=== PATIENT | male | born 1960 | race Caucasian/White ===

== ENCOUNTER 2020-12-09 11:05 | Emergency (ER) | payer MEDICARE, SELFPAY ==
--- NOTE | ~2020-12-09 | XR_ITS ---
EXAMINATION: LEFT HAND AND WRIST CLINICAL INFORMATION: Snuffbox tenderness COMPARISON: None TECHNIQUE: 4 views of the left hand and wrist FINDINGS: There is no evidence of acute fracture or dislocation of the left hand or wrist. There is some limited evaluation of the fingers due to them being held in flexion. There is mild degenerative spurring seen about the first metacarpal phalangeal joint. XR/XR hand wrist LT IMPRESSION: No significant bony abnormality of the left hand and wrist.
[2020-12-09 11:40] VITALS: BP 123/48; PULSE 88; RESP 14; TEMP 36.6; O2SAT 95; BMI 42.0
--- NOTE | 2020-12-09 12:21 | ECG_ITS ---
Test Reason : ARM TINGLING Blood Pressure : / mmHG Vent. Rate : 081 BPM Atrial Rate : 081 BPM P-R Int : 182 ms QRS Dur : 098 ms QT Int : 372 ms P-R-T Axes : 064 016 033 degrees QTc Int : 432 ms Normal sinus rhythm Low voltage QRS Inferior infarct (cited on or before 19-JAN-2009) Abnormal ECG When compared with ECG of 24-FEB-2017 04:55, Premature atrial complexes are no longer Present Referred By: Lyssa Benavidez Electronically Signed By:GAUTAM BERGER MD
[2020-12-09 12:22] VITALS: BP 120/54; PULSE 82; RESP 18; O2SAT 99
--- NOTE | 2020-12-09 12:45 | ED.EXTPRO ---
HPI - Extremity Problem General Chief complaint: Extremity Problem Stated complaint: lt hand numbness Time Seen by Provider: 12/09/20 12:06 Source: patient Mode of arrival: ambulatory History of Present Illness HPI Narrative: 60-year-old male with a past medical history of HTN, CKD, COPD on O2, CAD, HTN, HLD, MARLA, P 80, hyperlipidemia, sleep apnea, vitamin-D deficiency, c/o left wrist/hand pain since yesterday, worse with movement/palpation. Denies known injury/trauma or falls, pain described as tingling/pressure w/ radiating up arm. Denies associated CP/SOB, weakness, numbness, fever, chills, nausea/vomiting Complaint: extremity pain and joint swelling Related Data Home Medications Medication Instructions Recorded Confirmed aspirin [Aspir-81] 81 mg PO DAILY 07/01/20 11/11/20 furosemide 1 tab PO DAILY 07/01/20 11/11/20 ipratropium-albuterol 1 vial INHALATION Q6H PRN 07/01/20 11/11/20 lisinopril 1 tab PO DAILY 07/01/20 11/11/20 metoprolol succinate 1 tab PO DAILY 07/01/20 11/11/20 Previous Rx's Medication Instructions Recorded cholecalciferol (vitamin D3) 50 50 mcg PO DAILY #90 cap 07/09/20 mcg (2,000 unit) capsule atorvastatin 40 mg tablet 40 mg PO DAILY #90 tab 12/02/20 gabapentin 300 mg capsule 300 mg PO BID #60 cap 12/02/20 Allergies Allergy/AdvReac Type Severity Reaction Status Date / Time No Known Allergies Allergy Verified 11/15/20 23:29 Review of Systems Review of Systems: Constitutional: No Fever, No Chills Cardiovascular: No Chest Pain, No SOB Respiratory: No Cough, No Dyspnea Gastrointestinal: No Nausea, No Vomiting, No Abdominal pain Musculoskeletal: + joint pain, No Myalgias, No Joint Swelling Skin: No Skin Lesions, No rash Neuro: No Weakness, No Numbness, + Paresthesias Yes all other systems are reviewed and are negative [facility] Past Medical History Attestation statement: The following information was validated with the patient. Medical History Benign essential hypertension Chronic kidney disease (CKD), stage III (moderate) COPD (chronic obstructive pulmonary disease) Coronary artery disease History of back problems HTN (hypertension) Hypercholesterolemia Impaired fasting glucose Obesity (BMI 30-39.9) Obstructive sleep apnea Peripheral arterial disease Post herpetic neuralgia Pure hypercholesterolemia Secondary polycythemia Severe chronic obstructive pulmonary disease Sleep apnea Smoker Vitamin D deficiency Surgical History History of prostate surgery Recent surgical procedure on lower extremity Family History Family History Father CVD (cardiovascular disease) Diabetes Hypertension Mother Diabetes Hypertension CVD (cardiovascular disease) Brother Obese Pneumonia Heart attack Sister Seizures Son Bipolar disorder Social History Social History Alcohol intake: former Smoking Status: Current every day smoker Use of substances other than those prescribed or required for medical reasons: No Advance Directives: No Advance Directives Information Provided: No Physical Exam Vital Signs: Vital Signs: Last Vital Signs Temp 97.9 F 12/09/20 11:40 Pulse 82 12/09/20 12:22 Resp 18 12/09/20 12:22 BP 120/54 L 12/09/20 12:22 Pulse Ox 99 12/09/20 12:22 Body Mass Index 42.0 Const: General: cooperative, healthy appearing and comfortable Orientation/consciousness: patient oriented x3 Limitations: no limitations HENMT: Head: Yes normal to inspection Ears: hearing grossly normal bilaterally General nose exam: Normal external nose present Face and sinus: Yes normal facial exam Eyes: General: appearance normal, both eyes and all related structures EOM: EOMs intact bilaterally Neck: Neck: Yes normal visual inspection Resp: Effort & Inspection: normal respiratory effort Cardio: Rate: regular rate Peripheral pulses: radial pulses present GI: Inspection: Yes normal to inspection Skin: Rashes: no rashes Wounds: no wounds Neuro: General: patient oriented x3 and tone normal Extrem: Other: Left wrist without notable deformity or swelling. +ttp to radial aspect w/+ snuffbox tenderness, + decreased ROM to wrist secondary to pain. Neurovascularly intact. Thumb to 4th & 5th digit opposition limited bilaterally (chronically). No erythema/crepitus or warmth General: Yes normal to inspection Course Course Course Narrative: XR hand wrist LT IMPRESSION: No significant bony abnormality of the left hand and wrist >> will place patient in thumb spica splint to follow-up with orthopedics EKG is unchanged from priors -results discussed with patient and family at bedside MDM - Extremity (Nontraumatic) MDM Narrative Medical decision making narrative: 60-year-old male with a past medical history of HTN, CKD, COPD on O2, CAD, HTN, HLD, MARLA, P 80, hyperlipidemia, sleep apnea, vitamin-D deficiency, c/o left wrist/hand pain since yesterday, worse with movement/palpation. On exam VSS, NAD, well appearing, physical exam as above. Concern for fracture/stress fracture vs sprain/strain. Unlikely septic joint/arthritis. Lower concern for ACS Plan: EKG, x-rays ECG Data Attestation EKG: I personally reviewed and interpreted this ECG as follows: ECG interpretation date: 12/09/20 ECG interpretation time: 12:45 Prior ECG tracings: available for review Interpretation: EKG normal sinus rhythm. Rate of 81. Q-waves in leads III and aVF. Unchanged from priors. QTC 432. No STEMI Discharge Plan Discharge Clinical Impression: Acute wrist pain Patient Disposition: Home, Self-Care Instructions: Arthralgia (ED), Arthritis (ED) Additional Instructions: Your x-ray showed degenerative joint changes, but no fracture or dislocation your EKG is unchanged from priors You need to wear wrist splint at home at all times until you see the account services specialist, only take off to shower Take Tylenol /Motrin at home for pain Ice and elevate your wrist Prescriptions: No Action cholecalciferol (vitamin D3) [Vitamin D3] 50 mcg (2,000 unit) capsule 50 mcg PO DAILY Qty: 90 RF: 1 atorvastatin 40 mg tablet 40 mg PO DAILY Qty: 90 RF: 3 gabapentin 300 mg capsule 300 mg PO BID Qty: 60 RF: 5 furosemide 40 mg tablet 1 tab PO DAILY RF: 0 ipratropium-albuterol 0.5 mg-3 mg(2.5 mg base)/3 mL solution for nebulization 1 vial inhalation Q6H PRN (Reason: Shortness Of Breath Or Wheezing) RF: 0 metoprolol succinate 50 mg tablet extended release 24 hr 1 tab PO DAILY RF: 0 lisinopril 20 mg tablet 1 tab PO DAILY RF: 0 aspirin [Aspir-81] 81 mg Tablet,Delayed Release (Dr/Ec) 81 mg PO DAILY RF: 0 Referrals: Vivian Marrufo PA-C [Physician [facility]] - 1 week
[2020-12-09] MEDS: oxyCODONE HCl Immed Release 5 MG TABLET PO (14:07)
== END 2020-12-09 14:10 | disposition home or self-care (01) ==
PROVIDERS: Emergency Provider Emergency Medicine Emergency Medical Services; PCP Internal Medicine
DX: M25.532 Pain in left wrist (principal); I12.9 Hypertensive chronic kidney disease with stage 1 through stage 4 chronic kidney disease, or unspecified chronic kidney disease; N18.30 Chronic kidney disease, stage 3 unspecified; E78.00 Pure hypercholesterolemia, unspecified; E66.9 Obesity, unspecified; F17.200 Nicotine dependence, unspecified, uncomplicated; J44.9 Chronic obstructive pulmonary disease, unspecified; Z99.81 Dependence on supplemental oxygen; Z79.82 Long term (current) use of aspirin; Z79.899 Other long term (current) drug therapy
CPT/HCPCS: 29125; 73110; 73130; 93005; 99283; 99284

== ENCOUNTER → 2020-12-14 13:30 | Outpatient (BNVA) | payer MEDICARE, SELFPAY | PROVIDERS: PCP Internal Medicine; Visit Provider Orthopaedic Surgery | DX: M79.642 Pain in left hand (principal); M72.0 Palmar fascial fibromatosis [Dupuytren] | CPT/HCPCS: 99202 ==

== ENCOUNTER → 2021-01-26 14:54 | Outpatient (BNVA) | payer MEDICARE, SELFPAY | PROVIDERS: PCP Internal Medicine; Visit Provider Orthopaedic Surgery ==

== ENCOUNTER 2021-05-17 10:12 | Outpatient (REF) | payer MEDICARE, SELFPAY ==
[2021-05-17 10:53] LABS: MANUAL DIFF FLAG NO
[2021-05-17 11:01] LABS: Basophils Absolute Auto 0.1 X10*3/uL (0.0-0.2); Basophils Percent Auto 0.8 % (0-2); Eosinophils Absolute Auto 0.5 X10*3/uL (0.0-0.4); Eosinophils Percent Auto 3.8 % (0-4); Hematocrit 50.6 % (42-52); Hemoglobin 16.3 g/dl (14.0-18.0); Imm Gran Abs Auto 0.05 X10*3/uL (0.00-0.03); Imm Gran Pct Auto 0.4 % (0.0-0.4); Lymphocytes Absolute Auto 3.4 X10*3/uL (1.2-4.9); Lymphocytes Percent Auto 26.5 % (20-40); Mean Corpuscular HGB Conc 32.2 g/dl (31.0-36.0); Mean Corpuscular Volume 105.4 fL (80-98); Mean Platelet Volume 10.4 fL (9.4-12.4); Monocytes Absolute Auto 0.8 X10*3/uL (0.1-1.2); Monocytes Percent Auto 6.4 % (2-11); Neutrophils Absolute Auto 7.9 X10*3/uL (2.0-8.3); Neutrophils Percent Auto 62.1 % (45-73); Platelet Count 184 X10*3/uL (160-400); Red Cell Distribution Width 15.7 % (11.0-16.0); White Blood Count 12.8 X10*3/uL (4.8-10.8)
[2021-05-17 11:26] LABS: Alanine Aminotransferase 9 U/L (0-40); Alkaline Phosphatase 90 U/L (39-117); Anion Gap 12 (12-20); Aspartate Amino Transferase 14 U/L (5-37); Bilirubin Total 0.8 mg/dL (0.0-1.0); Blood Urea Nitrogen 37 mg/dL (9-16); Calcium 10.4 mg/dL (8.4-10.2); Carbon Dioxide 39 mmol/L (22-29); Chloride 95 mmol/L (96-108); Cholesterol 132 mg/dL; Estimated Glomerular Filt Rate 39; Glucose Fasting 93 mg/dL (60-99); HDL Cholesterol 25 mg/dL; LDL Cholesterol Calculated 73 mg/dl; Potassium 4.8 mmol/L (3.3-5.1); Sodium 141 mmol/L (135-145); Triglycerides 172 mg/dL
[2021-05-17 11:48] LABS: TSH reflex Free T4 1.49 uIU/mL (0.32-4.0); Vitamin D 25-OH Total 23.3 ng/mL (>30)
[2021-05-17 12:20] LABS: Appearance Urine CLEAR; Color Urine YELLOW; Glucose Urine UA NEG (NEG); Leukocyte Esterase Urine NEG (NEG); Nitrite Urine NEG (NEG); Urine Blood NEG (NEG); Urine Ketones NEG (NEG); Urine Protein NEG (NEG-TRACE)
== END 2021-05-17 10:13 | disposition home or self-care (01) ==
LOC: HO.LAB 10:12
PROVIDERS: PCP Internal Medicine; Visit Provider Internal Medicine
DX: D75.1 Secondary polycythemia (principal); I25.10 Atherosclerotic heart disease of native coronary artery without angina pectoris; E78.00 Pure hypercholesterolemia, unspecified; I73.9 Peripheral vascular disease, unspecified; I12.9 Hypertensive chronic kidney disease with stage 1 through stage 4 chronic kidney disease, or unspecified chronic kidney disease; N18.31 Chronic kidney disease, stage 3a; R73.01 Impaired fasting glucose; E55.9 Vitamin D deficiency, unspecified; E66.9 Obesity, unspecified
CPT/HCPCS: 36415; 80053; 80061; 81003; 82306; 84443; 85025

== ENCOUNTER 2021-10-11 15:59 | Outpatient (REF) | payer MEDICARE, SELFPAY ==
--- NOTE | ~2021-10-11 | XR_ITS ---
EXAMINATION: XR HIP, RIGHT CLINICAL INFORMATION: Pain in the right hip. COMPARISON: None. TECHNIQUE: AP and frog-leg lateral views of the right hip. FINDINGS: There is relative sclerosis of the femoral head superiorly with subtle cortical irregularity, possibly due to avascular necrosis. Small marginal osteophytes are present in the right hip. Mild axial joint space narrowing at the right hip. No fractures. Pubic symphysis and SI joints are unremarkable. Calcific atherosclerosis is present in the iliac and femoral arteries. XR/XR hip RT min 2V IMPRESSION: Chronic findings concerning for avascular necrosis of the femoral head. Consider correlation with MRI of the hip for further assessment. Mild osteochondritis in the right hip.
== END 2021-10-11 16:00 | disposition home or self-care (01) ==
LOC: HO.XRAY 15:59
PROVIDERS: PCP Internal Medicine; Visit Provider Nurse Practitioner Family
DX: M25.551 Pain in right hip (principal)
CPT/HCPCS: 73502

== ENCOUNTER 2021-10-14 19:35 | Outpatient (REF) | payer MEDICARE, SELFPAY ==
--- NOTE | ~2021-10-14 | MR_ITS ---
EXAMINATION: MR HIP WITHOUT CONTRAST, RIGHT CLINICAL INFORMATION: Osteochondritis dissecans right hip COMPARISON: X-ray the right hip October 2021 TECHNIQUE: MRI of the right hip was obtained using routine sequences on a high-field strength magnet. FINDINGS: Subcutaneous soft tissues: Normal. Muscles and tendons: Mild heterogeneous increased T2 signal within the proximal vastus intermedialis muscle compatible with muscle strain or contusion. Bone and articular cartilage: There is a circumscribed focus of heterogeneous abnormal signal within the superior lateral apex of the femoral head. This corresponds to the area of sclerosis on radiographs. This area is well defined by focal serpentine-shaped area of low T1 signal becoming heterogeneously bright on T2 with central area of heterogeneous signal with areas of fat signal and edema. This parallels the subchondral bone. The appearance is characteristic for avascular necrosis. This area measures 4.2 cm AP and 2.6 cm transverse and extends up to 7 mm deep to the articular surface. There is a surrounding bone marrow edema pattern raising the question of subtle articular collapse which is not definitely confirmed on this exam. This could reflect a surrounding inconspicuous fracture without collapse. There is also bone marrow edema extending along the junction of the basicervical portion of the femoral neck greater trochanteric junction. I do not see a clearly defined fracture line associated with this marrow edema. There is some minimal edema in the subchondral region of the acetabulum. Minimal heterogeneity of the articular cartilage indicative of minimal osteoarthritis of the hip joint. On the single large [id number] of the pelvis no additional bone or joint abnormalities. Intrapelvic soft tissues are unremarkable. Neurovascular structures: Normal. Lymph nodes: Normal. MR/MR hip RT wo con IMPRESSION: Avascular necrosis of the femoral head. The surrounding edema suggests a complicating fracture perhaps surrounding or involving the area of avascular necrosis; no clear articular collapse identified. The bone marrow edema extending more distally and laterally at the junction of the basicervical portion of the neck in the greater trochanter of uncertain etiology. However, this most likely reflects extension of edema related to the aforementioned avascular necrosis. Cannot exclude subtle concomitant basicervical neck fracture. Consider follow-up CT examination to confirm the lack of a concomitant fracture as felt clinically necessary. Mild abnormality of the proximal vastus intermedius muscle compatible with muscle contusion or strain. Mild arthrosis of the right hip joint.
== END 2021-10-14 19:36 | disposition home or self-care (01) ==
LOC: HO.MRI 19:35
PROVIDERS: Visit Provider Nurse Practitioner Family
DX: M93.25 Osteochondritis dissecans of hip (principal); M25.551 Pain in right hip
CPT/HCPCS: 73721

== ENCOUNTER → 2021-12-09 11:50 | Outpatient (BNVA) | payer MEDICARE, SELFPAY | PROVIDERS: PCP Internal Medicine; Visit Provider Orthopaedic Surgery | DX: M87.051 Idiopathic aseptic necrosis of right femur (principal); M25.551 Pain in right hip; I12.9 Hypertensive chronic kidney disease with stage 1 through stage 4 chronic kidney disease, or unspecified chronic kidney disease; I25.10 Atherosclerotic heart disease of native coronary artery without angina pectoris; N18.32 Chronic kidney disease, stage 3b; E78.00 Pure hypercholesterolemia, unspecified; E55.9 Vitamin D deficiency, unspecified; F17.210 Nicotine dependence, cigarettes, uncomplicated | CPT/HCPCS: 99202 ==

== ENCOUNTER 2022-05-03 09:42 | Outpatient (REF) | payer MEDICARE, SELFPAY ==
[2022-05-03 11:20] LABS: Appearance Urine Turbid; Color Urine Yellow; Glucose Urine UA Negative (Negative); Leukocyte Esterase Urine Negative (Negative); Nitrite Urine Negative (Negative); PH 6.5 (5.0-8.0); Urine Blood Negative (Negative); Urine Ketones Negative (Negative); Urine Protein Negative (Neg-Trace)
[2022-05-03 11:24] LABS: MANUAL DIFF FLAG NO
[2022-05-03 11:42] LABS: Basophils Absolute Auto 0.1 X10*3/uL (0.0-0.2); Basophils Percent Auto 0.8 % (0-2); Eosinophils Absolute Auto 0.5 X10*3/uL (0.0-0.4); Eosinophils Percent Auto 3.5 % (0-4); Hematocrit 48.2 % (42.0-52.0); Hemoglobin 15.7 g/dl (14.0-18.0); Imm Gran Abs Auto 0.07 X10*3/uL (0.00-0.03); Imm Gran Pct Auto 0.5 % (0.0-0.4); Lymphocytes Absolute Auto 2.8 X10*3/uL (1.2-4.9); Lymphocytes Percent Auto 19.6 % (20-40); Mean Corpuscular HGB Conc 32.6 g/dl (31.0-36.0); Mean Corpuscular Hemoglobin 34.4 pg (27.0-33.0); Mean Corpuscular Volume 105.5 fL (80.0-98.0); Mean Platelet Volume 10.8 fL (9.4-12.4); Monocytes Absolute Auto 0.9 X10*3/uL (0.1-1.2); Monocytes Percent Auto 6.3 % (2-11); Neutrophils Absolute Auto 9.8 x10*3/uL (2.0-8.3); Neutrophils Percent Auto 69.3 % (45-73); Platelet Count 172 X10*3/uL (160-400); Red Blood Count 4.57 X10*6/uL (4.60-5.80); White Blood Count 14.2 X10*3/uL (4.8-10.8)
[2022-05-03 12:12] LABS: Estimated Average Glucose 103 mg/dL; Hemoglobin A1c % 5.2 %
[2022-05-03 12:21] LABS: Alanine Aminotransferase 8 U/L (0-40); Alkaline Phosphatase 92 U/L (39-117); Anion Gap 14 (12-20); Aspartate Amino Transferase 13 U/L (5-37); Bilirubin Total 0.6 mg/dL (0.0-1.0); Blood Urea Nitrogen 22 mg/dL (9-16); Calcium 9.7 mg/dL (8.4-10.2); Carbon Dioxide 35 mmol/L (22-29); Chloride 97 mmol/L (96-108); Cholesterol 109 mg/dL; Estimated Glomerular Filt Rate 50; Glucose Fasting 87 mg/dL (60-99); HDL Cholesterol 29 mg/dL; LDL Cholesterol Calculated 61 mg/dl; Potassium 4.4 mmol/L (3.3-5.1); Sodium 142 mmol/L (135-145); Total Protein 7.2 g/dL (6.5-8.0); Triglycerides 97 mg/dL
[2022-05-03 12:36] LABS: TSH reflex Free T4 1.44 uIU/mL (0.32-4.0); Vitamin D 25-OH Total 33.3 ng/mL (>30)
== END 2022-05-03 09:43 | disposition home or self-care (01) ==
LOC: HO.HMGCLDS 09:42
PROVIDERS: PCP Internal Medicine; Visit Provider Internal Medicine
DX: I10 Essential (primary) hypertension (principal); E55.9 Vitamin D deficiency, unspecified; E78.00 Pure hypercholesterolemia, unspecified; R73.01 Impaired fasting glucose
CPT/HCPCS: 36415; 80053; 80061; 81003; 82306; 83036; 84443; 85025

== ENCOUNTER 2022-08-07 16:32 | Inpatient (IN) | payer MEDICARE, SELFPAY ==
--- NOTE | ~2022-08-07 | CT_ITS ---
EXAMINATION: CT FACIAL BONES WITH CONTRAST CT TISSUE NECK WITH CONTRAST CLINICAL INFORMATION: Nonresolving cellulitis. Rule out abscess. COMPARISON: Neck CT dated 08/07/2022. TECHNIQUE: Following intravenous administration of 85 mL of Omnipaque 350, helical imaging was acquired with generation of reformatted acquisitions. This CT examination was performed using dose optimization techniques as appropriate, variously including the following: *Automated exposure control *Adjustment of mA and/or kV according to patient size (this includes techniques or standardized protocols for targeted exams where dose is matched to indication/reason for exam; i.e. extremities or head) *Use of iterative reconstruction technique DLP: 535 mGy-cm FINDINGS: Mild stranding in the subcutaneous fat of the left facial soft tissues is fairly similar to prior imaging. No organized fluid collection is identified. Additional anterior frontal scalp soft tissue thickening also evident. A 1.8 x 1.7 cm subdermal cyst is unchanged in appearance. No contour abnormality or pathologic enhancement is seen within the oral cavity, pharyngeal mucosal space, or larynx with some limitations in evaluation due to motion artifacts. The thyroid gland is homogeneous. The airway is preserved, though narrowed at the thoracic inlet due to COPD. No new cervical adenopathy is seen. The carotid sheath vasculature opacifies normally with stable moderate atherosclerotic wall calcifications at the bifurcations and origins of the internal carotid arteries. The parotid and submandibular glands are normal. Left periorbital soft tissue inflammatory change is stable. The patient has had prior lens extractions. The extraocular muscles and optic nerve sheath complexes appear normal. No retrobulbar soft tissue mass is seen. The orbital apices are normal. There is what may represent a chronic radicular cyst in the alveolar process of the anterior maxilla. The patient is otherwise edentulous. Multilevel cervical spondylosis noted with bulky endplate spurring anterolaterally. No suspicious osseous lesion is seen. A right paracentral disc protrusion impresses upon the ventral thecal sac at the C5-C6 level. The imaged paranasal sinuses and mastoid air cells are well aerated. The TMJs are normal. The imaged portions of the brain demonstrate no acute abnormality. There are patchy areas of subsegmental atelectasis in the lungs with interlobular septal thickening which may be due to mild vascular congestion, also evident on prior imaging. Emphysematous changes again visible as well. Aside from atherosclerotic wall calcifications in the abdominal aorta and dilatation of the main pulmonary artery, the imaged mediastinum is unremarkable. CT/CT soft tissue neck w IV con IMPRESSION: No new soft tissue fluid collection. Stable periorbital soft tissue swelling and anterior frontal scalp soft tissue thickening. Additional stable mild left facial cellulitic changes of indeterminate etiology. Presumed reactive thickening of the platysma muscle, as on prior imaging. No new cervical adenopathy. Interlobular septal thickening in the lungs with scattered subsegmental atelectatic changes superimposed upon emphysema. Pulmonary arterial dilatation can be seen in the setting of chronic pulmonary artery hypertension; clinically correlate.
--- NOTE | ~2022-08-07 | CT_ITS ---
EXAMINATION: CT SOFT TISSUE NECK WITHOUT CONTRAST CLINICAL INFORMATION: Left-sided facial swelling and pain COMPARISON: None TECHNIQUE: Helical imaging was performed in the axial plane with generation of coronal and sagittal reformatted images. This CT examination was performed using dose optimization techniques as appropriate, variously including the following: *Automated exposure control *Adjustment of mA and/or kV according to patient size (this includes techniques or standardized protocols for targeted exams where dose is matched to indication/reason for exam; i.e. extremities or head) *Use of iterative reconstruction technique DLP: 844 mGy-cm FINDINGS: Visualized intracranial contents grossly unremarkable-limited assessment. Globes are slightly proptotic. Globes and retro-orbital structures otherwise intact. Normal appearance of the director process space and parapharyngeal fat. No thickening of the posterior nasopharyngeal soft tissues. Major salivary glands and thyroid gland are unremarkable. Laryngeal structures are within normal limits. No mucosal space mass identified. No retropharyngeal fluid collection. Bilateral carotid vascular calcifications. Atherosclerotic vascular calcifications aortic arch, great vessels, and vertebral arteries. Dense calcification the proximal right subclavian artery. No cervical lymphadenopathy. 1.8 cm low-density subdermal lesion in the left lower face overlying the mandible, likely sebaceous or epidermal inclusion cyst on series 14 image 73. Mild subcutaneous edema/stranding in the lower left face and left neck with slight asymmetric thickening of the left platysma muscle relative to the right side. Correlate with evidence of cellulitis on exam. No fluid collection suspicious for abscess. Visualized upper lungs demonstrate mild to moderate centrilobular emphysema. No acute fracture or suspicious osseous lesion. Mild multilevel cervical spondylosis. Paranasal sinuses and mastoid air cells are normally aerated. The patient is edentulous. No fracture or suspicious osseous lesion. CT/CT soft tissue neck wo IV con IMPRESSION: 1. Mild subcutaneous edema/stranding in the lower left face and left neck with slight asymmetric thickening of the left platysma muscle. Correlate with evidence of cellulitis on exam. No fluid collection suspicious for abscess. 2. No cervical lymphadenopathy. 3. 1.8 cm low-density subdermal lesion in the left lower face overlying the mandible, likely sebaceous or epidermal inclusion cyst.
--- NOTE | ~2022-08-07 | CT_ITS ---
EXAMINATION: CT head/brain wo IV con CLINICAL INFORMATION: Reason for Exam headache, COMPARISON: None. TECHNIQUE: Contiguous axial imaging was performed from the skull base to vertex without intravenous contrast. Sagittal and coronal reformatted images were obtained. This CT examination was performed using dose optimization techniques as appropriate, variously including the following: * Automated exposure control * Adjustment of mA and/or kV according to patient size (this includes techniques or standardized protocols for targeted exams where dose is matched to indication/reason for exam; i.e. extremities or head) Use of iterative reconstruction technique DLP: 2470 mGy-cm for the head, neck, and chest CTs dictated separately FINDINGS: Right posterior parietal soft tissue scalp swelling. Left premalar soft tissue swelling. Bilateral lens placements. No acute fracture. The mastoid air cells and visualized portions of the paranasal sinuses are well aerated. There is no evidence of acute intracranial hemorrhage or territorial infarction. No abnormal mass effect or midline shift is seen. Mar to white matter differentiation is well preserved. No extra-axial fluid collections are identified. No hydrocephalus. Patchy periventricular and deep white matter hypoattenuation is consistent with mild small vessel ischemic changes. CT/CT head/brain wo IV con IMPRESSION: 1. No acute intracranial abnormality. Right posterior parietal and left premalar soft tissue swelling without underlying acute fracture.
--- NOTE | ~2022-08-07 | CT_ITS ---
EXAMINATION: CT CHEST WITHOUT CONTRAST CLINICAL INFORMATION: Hypoxia COMPARISON: CT 04/14/2020 TECHNIQUE: Multidetector volumetric CT imaging of the chest was done. Axial MIP volume rendering provided. Sagittal and coronal reformatted images were obtained. This CT examination was performed using dose optimization techniques as appropriate, variously including the following: *Automated exposure control *Adjustment of mA and/or kV according to patient size (this includes techniques or standardized protocols for targeted exams where dose is matched to indication/reason for exam; i.e. extremities or head) *Use of iterative reconstruction technique DLP: 672.15 mGy-cm FINDINGS: LUNGS: Subpleural consolidation or rounded atelectasis in the right lower lobe with overall volume loss and basilar crowding. This is similar to the previous study although there are increased interstitial markings suggesting superimposed edema or airways inflammation. Moderate upper lobe predominant centrilobular emphysema. MEDIASTINUM: No pericardial effusion. No mediastinal or hilar lymphadenopathy. Prominent mediastinal fat. CORONARY ARTERY CALCIFICATION: Prominent coronary artery calcifications are noted. PLEURA: Chronic right pleural effusion with mild pleural thickening which does not appear significantly changed since 04/14/2020. AXILLA: No lymphadenopathy. UPPER ABDOMEN: Unremarkable. OSSEOUS STRUCTURES: Unremarkable. CT/CT chest wo IV con IMPRESSION: Chronic right pleural effusion with pleural thickening and rounded atelectasis in the right lower lobe, similar to the previous study. Increased interstitial markings suggesting superimposed interstitial edema or airways inflammation. Moderate upper lobe predominant centrilobular emphysema. Fleischner guidelines were followed.
--- NOTE | ~2022-08-07 | US_ITS ---
EXAMINATION: US VENOUS WITH DOPPLER UPPER EXTREMITY, LEFT CLINICAL INFORMATION: Left upper extremity swelling and pain COMPARISON: None TECHNIQUE: Ultrasound of the upper extremity is performed using compression sonography and color and pulse Doppler flow with assessment of augmentation of flow. There is also imaging and Doppler assessment of the jugular and subclavian veins. Spectral analysis with color-flow imaging is performed. FINDINGS: Respiratory variation, normal compression, and augmented flow are noted throughout the upper extremity including the axillary, brachial, basilic, and radial and ulnar veins. There is normal flow in the internal jugular and subclavian veins. There is no visible deep or superficial thrombophlebitis. If the patient's symptoms progress, a followup ultrasound in 5 -7 days might be of value to exclude proximal propagation from a nonvisualized distal arm vein. US/US venous duplex UE LT IMPRESSION: No DVT demonstrated in the left upper extremity.
--- NOTE | ~2022-08-07 | XR_ITS ---
EXAMINATION: XR SHOULDER, LEFT CLINICAL INFORMATION: Pain and decreased range of motion COMPARISON: None TECHNIQUE: AP external rotation, Grashey, scapular Y, and axillary views of the left shoulder. FINDINGS: Bone alignment is normal. No fracture or dislocation. Normal glenohumeral joint. Arthritis at the acromioclavicular joint. There is soft tissue arterial calcification. Soft tissues are otherwise normal XR/XR shoulder LT min 2V IMPRESSION: Arthritis at the acromioclavicular joint.
--- NOTE | 2022-08-07 16:35 | ED_ITS ---
HPI - Skin/Abscess/Foreign Bdy General Chief complaint: General Medical <Candy Dooley NP - Last Filed: 08/07/22 16:39> Stated complaint: facial swelling, shoulder pain <Candy Dooley NP - Last Filed: 08/07/22 16:39> Time Seen by Provider: 08/07/22 17:38 <Candy Dooley NP - Last Filed: 08/07/22 16:39> Source: patient <HADLEY Akbar - Last Filed: 08/07/22 20:54> Mode of arrival: ambulatory <HADLEY Akbar - Last Filed: 08/07/22 20:54> Limitations: no limitations <HADLEY Akbar - Last Filed: 08/07/22 20:54> History of Present Illness HPI narrative: This is a 62 year old male hisory of COPD on 2L NC, HLD, CAD, PAD, CKD here with left sided facial swelling, pain x 3 days. Patient tells me that this has been progressively worsening over the past few days. Tells me now it is much more red, tender. Also reporting generalized pain throughout his body and left-sided headache, denies any trauma to the area tells me it does not feel like his normal headache. Reports subjective fevers and chills home. When patient arrived here into the emergency department he was noted to be 73% on RA usually on 2L, he was placed on 3 L and oxygen saturation improved to 97%. Patient denies any trauma to the area. Patient denies chest pain, shortness of breath, nausea, vomiting, vision changes, dizziness, weakness, headache, earach e, difficulty swallowing. NIH stroke scale 0. <HADLEY Akbar Last Filed: 08/07/22 20:54> Related Data Home medications: Home Medications Medication Instructions Recorded Confirmed aspirin 81 mg tablet,delayed 81 mg PO DAILY 07/01/20 05/18/21 release Previous Rx's Medication Instructions Recorded cholecalciferol (vitamin D3) 50 50 mcg PO DAILY #90 caps 10/04/21 mcg (2,000 unit) capsule atorvastatin 40 mg tablet 40 mg PO DAILY #90 tabs 12/10/21 furosemide 40 mg tablet 40 mg PO DAILY #90 tabs 12/10/21 lisinopril 20 mg tablet 20 mg PO DAILY #90 tabs 12/17/21 metoprolol succinate 50 mg 50 mg PO DAILY #90 tabs 04/14/22 tablet,extended release 24 hr gabapentin 300 mg capsule 300 mg PO TID 2 weeks #90 caps 05/11/22 NEBULIZER #1 ea 06/24/22 ipratropium 0.5 mg-albuterol 3 mg 3 ml inhalation Q6H Shortness Of 06/24/22 (2.5 mg base)/3 mL nebulization Breath Or Wheezing 30 days #360 mL soln <Candy Dooley NP - Last Filed: 08/07/22 16:39> Allergies/Adverse reactions: Allergies Allergy/AdvReac Type Severity Reaction Status Date / Time No Known Allergies Allergy Verified 12/09/21 12:22 <Candy Dooley NP - Last Filed: 08/07/22 16:39> Review of Systems Review of Systems: Constitutional : No Weight loss, + Fever, + Chills, No Fatigue, No Malaise ENT/Mouth : No sore throat, No Rhinorrhea Eyes: No Eye Pain, No Swelling, No Redness Cardiovascular : No Chest Pain, No SOB, No Dyspnea on Exertion, No Orthopnea, No Edema, No Palpitations Respiratory : No Cough, No Sputum, No Wheezing Gastrointestinal : No Nausea, No Vomiting, No Diarrhea, No Constipation, No abdominal Pain, No Hematochezia, No Melena Genitourinary : No Dysuria, No Urinary Frequency, No Hematuria, Musculoskeletal : No joint pain, No Myalgias, No Joint Swelling Skin : No Skin Lesions, No rash, + facial swelling Neuro : No Weakness, No Numbness, No Dizziness, No Headache Psych : No Anxiety/Panic, No Depression All other systems reviewed and are negative <HADLEY Akbar - Last Filed: 08/07/22 20:54> Yes all other systems are reviewed and are negative <HADLEY Akbar - Last Filed: 08/07/22 20:54> [facility] Past Medical History Attestation statement: The following information was validated with the patient. <HADLEY Akbar Last Filed: 08/07/22 20:54> Source: old records reviewed and nursing notes reviewed <HADLEY Akbar - Last Filed: 08/07/22 20:54> Medical History: Medical History Benign essential hypertension Chronic kidney disease (CKD), stage III (moderate) COPD (chronic obstructive pulmonary disease) Coronary artery disease History of back problems HTN (hypertension) Hypercholesterolemia Impaired fasting glucose Left hand pain Obesity (BMI 30-39.9) Obstructive sleep apnea Peripheral arterial disease Post herpetic neuralgia Pure hypercholesterolemia Secondary polycythemia Severe chronic obstructive pulmonary disease Sleep apnea Smoker Vitamin D deficiency <Candy Dooley NP - Last Filed: 08/07/22 16:39> Surgical History: Surgical History History of prostate surgery Recent surgical procedure on lower extremity <Candy Dooley NP - Last Filed: 08/07/22 16:39> Family History Family History: Family History Father CVD (cardiovascular disease) Diabetes Hypertension Mother Diabetes Hypertension CVD (cardiovascular disease) Brother Obese Pneumonia Heart attack Sister Seizures Son Bipolar disorder <Candy Dooley NP - Last Filed: 08/07/22 16:39> Social History Social History: Social History Housing: House Alcohol intake: current Alcohol intake frequency: holidays/special occasions only Patient Tobacco Use Status: Current everyday Tobacco user Tobacco use type: Cigarette Cigarette Packs Per Day: 1 Cigarettes Per Day: 20 e-Cigarette/Vaping Use: Never Used Second Hand Smoke Exposure: Yes Advance Directives: No Advance Directives Information Provided: No service: No Current occupational status: disabled Gender identity: Male Cognitive needs: Yes (cane) Hearing needs: No Vision needs: Yes (reading glasses) <Candy Dooley NP - Last Filed: 08/07/22 16:39> Physical Exam Vital Signs: Vital Signs: Last Vital Signs Temp 99.7 F 08/07/22 17:50 Pulse 106 H 08/07/22 17:50 Resp 18 08/07/22 17:50 BP 144/57 H 08/07/22 17:50 Pulse Ox 97 08/07/22 17:50 O2 Del Method 08/07/22 17:50 Oxygen Flow Rate 3 08/07/22 16:36 BMI result Body Mass Index 43.9 <Candy Dooley NP - Last Filed: 08/07/22 16:39> Vital Signs: Last Vital Signs Temp 99.7 F 08/07/22 17:50 Pulse 106 H 08/07/22 17:50 Resp 18 08/07/22 17:50 BP 144/57 H 08/07/22 17:50 Pulse Ox 97 08/07/22 17:50 O2 Del Method 08/07/22 17:50 Oxygen Flow Rate 3 08/07/22 16:36 BMI result Body Mass Index 43.9 Patient noted to have low-grade fever, tachycardia, tachypnea. <HADLEY Akbar - Last Filed: 08/07/22 20:54> Appearance: Alert.? Oriented X3.? No acute distress.? Head: Normocephalic, atraumatic, no step-offs or deformities Eyes: Pupils equal, round and reactive to light.?EOMI pain free ENT: Pharynx normal.?White coat overlying tongue . No trismus. Poor dentition, hallatosis Neck: Normal inspection.? Neck supple.? CVS: Normal heart rate and rhythm.? Pulses normal.? Respiratory: No respiratory distress.? Breath sounds diminished b/l.? Abdomen: Soft and nontender.? Skin: Skin warm and dry.? Normal skin color.? Normal skin turgor.? Extremities: No lower extremity edema.? No calf ttp. 5/5 strength to bilateral upper and lower extremities Back: No midline tenderness, no C-spine tenderness, full range of motion, no CVA tenderness bilaterally Neuro: Oriented X 3.? No motor deficit.? No sensory deficit. CN 2-12 intact . Normal [id number], [id number]. Normal rapid alternating movements. <HADLEY Akbar - Last Filed: 08/07/22 20:54> Course Course Course Narrative: This is a rapid medical exam. Deferred HPI, ROS, PE to primary provider, 62 yo male with history of COPD on 2L NC, HLD, CAD, PAD, CKD here with left sided facial swelling, pain x 3 days. Patient arrives not on his oxygen because his portable oxygen tank ran out. Initial saturation 72%, improved to 97% 2LNC. Tachycardia with low grade fever in triage. Will check labs including blood cultures, lactic, covid screen. <Candy Dooley NP - Last Filed: 08/07/22 16:39> Reevaluation(s) Reevaluation #1: Patient noted to have leukocytosis 18.9, patient's sodium noted to be 125, patient noted to have an acute on chronic kidney injury BUN 40, creatinine 2.14, added a CPK to ensure patient is not in rhabdomyolysis, patient's lactic acid of 2.4, currently receiving IV hydration for HAYLEY and elevated lactic acid. Coags within normal limits. COVID negative. Pending CPK, bnp, imaging <HADLEY Taylor - Last Filed: 08/07/22 20:54> Time: 17:54 <HADLEY Akbar - Last Filed: 08/07/22 20:54> Reevaluation #2: CPK, and BNP within normal limits. CT of soft tissue neck w/ subcutaneous edema/ stranding in left lower face and left neck w/ slight asymmetric thickening of the left platysma muscle. No acute intracranial abnormality. Right posterior parietal and left premalar soft tissue swelling without underlying acute fracture. There is no palpable abscess in that region on exam. At this time patient will be admitted to the hospital for further intervention and treatment. <HADLEY Akbar - Last Filed: 08/07/22 20:54> Time: 20:53 <HADLEY Akbar - Last Filed: 08/07/22 20:54> Medications Administered Discontinued Medications Generic Name Dose Route Start Last Admin Trade Name Freq PRN Reason Stop Dose Admin Acetaminophen 975 mg 08/07/22 16:38 08/07/22 16:41 Acetaminophen 325 Mg Tablet PO 08/07/22 16:39 975 mg ONCE ONE Administration Ceftriaxone Sodium 1 gm/ 50 mls @ 100 mls/hr 08/07/22 17:41 08/07/22 19:33 Sodium Chloride IV 08/07/22 18:10 Infused ONCE ONE Infusion Sodium Chloride 1,000 mls @ 999 mls/hr 08/07/22 17:45 08/07/22 20:32 Ns IV 08/07/22 18:45 Infused .Q1H1M SHERRON Infusion Sodium Chloride 1,000 mls @ 999 mls/hr 08/07/22 18:00 08/07/22 20:32 Ns IV 08/07/22 19:00 999 mls/hr .Q1H1M SHERRON Administration Nystatin 200,000 unit 08/07/22 17:52 08/07/22 18:12 Nystatin Oral Susp 500,000 Unit/5 Ml Oral.Susp BUCCAL 08/07/22 17:53 200,000 unit ONCE ONE Administration Protocol <Candy Dooley NP - Last Filed: 08/07/22 16:39> Medications Administered Discontinued Medications Generic Name Dose Route Start Last Admin Trade Name Freq PRN Reason Stop Dose Admin Acetaminophen 975 mg 08/07/22 16:38 08/07/22 16:41 Acetaminophen 325 Mg Tablet PO 08/07/22 16:39 975 mg ONCE ONE Administration Ceftriaxone Sodium 1 gm/ 50 mls @ 100 mls/hr 08/07/22 17:41 08/07/22 19:33 Sodium Chloride IV 08/07/22 18:10 Infused ONCE ONE Infusion Sodium Chloride 1,000 mls @ 999 mls/hr 08/07/22 17:45 08/07/22 20:32 Ns IV 08/07/22 18:45 Infused .Q1H1M SHERRON Infusion Sodium Chloride 1,000 mls @ 999 mls/hr 08/07/22 18:00 08/07/22 20:32 Ns IV 08/07/22 19:00 999 mls/hr .Q1H1M SHERRON Administration Nystatin 200,000 unit 08/07/22 17:52 08/07/22 18:12 Nystatin Oral Susp 500,000 Unit/5 Ml Oral.Susp BUCCAL 08/07/22 17:53 200,000 unit ONCE ONE Administration Protocol <HADLEY Akbar - Last Filed: 08/07/22 20:54> MDM - Skin/Abscess/Foreign Bdy MDM Narrative Medical decision making narrative: 1740 62-year-old male presents with left-sided facial swelling and pain times 3 days worsening. Upon exam there is erythema, pain and swelling to the left side of face. Diminished breathsounds b /l. Oral candidiasis noted. Patient noted to be tachycardic, tachypneic and was low-grade fever. Initially patient was hypoxic at 73% on RA usually on 2L NC improved to 97% on 3 L via nasal cannula. Concerns for infection will ensure that lactic and blood cultures were ordered in addition to labs that were ordered in triage. Will also order ceftriaxone, fluids. Concerns for abscess versus cellulitis. Since patient was very hypoxic will obtain CTA to rule out PE. Will also rule out CHF. No chest pain therefore low suspicion for ACS. Plan at this time labs, imaging, blood cultures, lactic, antibiotics. Patient was given Tylenol in triage. Will also hydrate patient <HADLEY Akbar - Last Filed: 08/07/22 20:54> Medical Records Attestation: I reviewed the patient's medical records. <HADLEY Akbar - Last F iled: 08/07/22 20:54> Lab Data Attestation: I reviewed the patient's lab results. <HADLEY Akbar - Last Filed: 08/07/22 20:54> Result diagrams: : 08/07/22 16:51 08/07/22 16:51 <Candy Dooley NP - Last Filed: 08/07/22 16:39> Labs: Lab Results 08/07/22 08/07/22 08/07/22 Range/Units 16:51 16:51 16:51 WBC 18.9 H (4.8-10.8) X10*3/uL RBC 4.84 (4.60-5.80) X10*6/uL Hgb 16.3 (14.0-18.0) g/dl Hct 49.9 (42.0-52.0) % MCV 103.1 H (80.0-98.0) fL MCH 33.7 H (27.0-33.0) pg MCHC 32.7 (31.0-36.0) g/dl RDW 15.2 (11.0-16.0) % Plt Count 141 L (160-400) X10*3/uL MPV 10.4 (9.4-12.4) fL Immature Gran % (Auto) 0.5 H (0.0-0.4) % Neut % (Auto) 82.6 H (45-73) % Lymph % (Auto) 9.4 L (20-40) % [place] % (Auto) 6.9 (2-11) % Eos % (Auto) 0.3 (0-4) % Baso % (Auto) 0.3 (0-2) % Lymph # (Auto) 1.8 (1.2-4.9) X10*3/uL [place] # (Auto) 1.3 H (0.1-1.2) X10*3/uL Eos # (Auto) 0.1 (0.0-0.4) X10*3/uL Baso # (Auto) 0.1 (0.0-0.2) X10*3/uL Abs Immat Gran (auto) 0.09 H (0.00-0.03) X10*3/uL Absolute Neuts (auto) 15.6 H (2.0-8.3) x10*3/uL Absolute Nucleated RBC 0.000 (0.0-0.012) X10*3/uL Nucleated RBC % (auto) 0.0 (0.0-0.2) /100WBC Smear Tech's Comments VERIFIED PT (10.0-13.1) SEC INR (0.9-1.1) Sodium 125 L (135-145) mmol/L Potassium 4.5 (3.3-5.1) mmol/L Chloride 90 L (96-108) mmol/L Carbon Dioxide 28 (22-29) mmol/L Anion Gap 12 (12-20) BUN 40 H (9-16) mg/dL Creatinine 2.14 H (0.5-1.4) mg/dL Estim Creat Clear Calc 37.6 Estimated GFR 31 Random Glucose 125 H (60-115) mg/dL Lactic Acid (0.5-2.0) mmol/L Lactic Acid F/U @ 2Hr (0.5-2.0) mmol/L Calcium 9.1 D (8.4-10.2) mg/dL Total Bilirubin 1.4 H (0.0-1.0) mg/dL Direct Bilirubin 0.5 (0.0-0.5) mg/dL AST 14 (5-37) U/L ALT 9 (0-40) U/L Alkaline Phosphatase 78 (39-117) U/L Total Creatine Kinase 84 (38-174) U/L B-Natriuretic Peptide (<100) pg/mL Total Protein 7.5 (6.5-8.0) g/dL Albumin 4.2 (3.5-5.0) g/dL COVID-19 (GRZEGORZ) Negative (Negative) COVID-19 Clin Com See Note 08/07/22 08/07/22 08/07/22 Range/Units 16:51 16:51 16:51 WBC (4.8-10.8) X10*3/uL RBC (4.60-5.80) X10*6/uL Hgb (14.0-18.0) g/dl Hct (42.0-52.0) % MCV (80.0-98.0) fL MCH (27.0-33.0) pg MCHC (31.0-36.0) g/dl RDW (11.0-16.0) % Plt Count (160-400) X10*3/uL MPV (9.4-12.4) fL Immature Gran % (Auto) (0.0-0.4) % Neut % (Auto) (45-73) % Lymph % (Auto) (20-40) % [place] % (Auto) (2-11) % Eos % (Auto) (0-4) % Baso % (Auto) (0-2) % Lymph # (Auto) (1.2-4.9) X10*3/uL [place] # (Auto) (0.1-1.2) X10*3/uL Eos # (Auto) (0.0-0.4) X10*3/uL Baso # (Auto) (0.0-0.2) X10*3/uL Abs Immat Gran (auto) (0.00-0.03) X10*3/uL Absolute Neuts (auto) (2.0-8.3) x10*3/uL Absolute Nucleated RBC (0.0-0.012) X10*3/uL Nucleated RBC % (auto) (0.0-0.2) /100WBC Smear Tech's Comments PT 12.6 (10.0-13.1) SEC INR 1.1 (0.9-1.1) Sodium (135-145) mmol/L Potassium (3.3-5.1) mmol/L Chloride (96-108) mmol/L Carbon Dioxide (22-29) mmol/L Anion Gap (12-20) BUN (9-16) mg/dL Creatinine (0.5-1.4) mg/dL Estim Creat Clear Calc Estimated GFR Random Glucose (60-115) mg/dL Lactic Acid 2.4 H* (0.5-2.0) mmol/L Lactic Acid F/U @ 2Hr (0.5-2.0) mmol/L Calcium (8.4-10.2) mg/dL Total Bilirubin (0.0-1.0) mg/dL Direct Bilirubin (0.0-0.5) mg/dL AST (5-37) U/L ALT (0-40) U/L Alkaline Phosphatase (39-117) U/L Total Creatine Kinase (38-174) U/L B-Natriuretic Peptide 85 (<100) pg/mL Total Protein (6.5-8.0) g/dL Albumin (3.5-5.0) g/dL COVID-19 (GRZEGORZ) (Negative) COVID-19 Clin Com 08/07/22 Range/Units 19:49 WBC (4.8-10.8) X10*3/uL RBC (4.60-5.80) X10*6/uL Hgb (14.0-18.0) g/dl Hct (42.0-52.0) % MCV (80.0-98.0) fL MCH (27.0-33.0) pg MCHC (31.0-36.0) g/dl RDW (11.0-16.0) % Plt Count (160-400) X10*3/uL MPV (9.4-12.4) fL Immature Gran % (Auto) (0.0-0.4) % Neut % (Auto) (45-73) % Lymph % (Auto) (20-40) % [place] % (Auto) (2-11) % Eos % (Auto) (0-4) % Baso % (Auto) (0-2) % Lymph # (Auto) (1.2-4.9) X10*3/uL [place] # (Auto) (0.1-1.2) X10*3/uL Eos # (Auto) (0.0-0.4) X10*3/uL Baso # (Auto) (0.0-0.2) X10*3/uL Abs Immat Gran (auto) (0.00-0.03) X10*3/uL Absolute Neuts (auto) (2.0-8.3) x10*3/uL Absolute Nucleated RBC (0.0-0.012) X10*3/uL Nucleated RBC % (auto) (0.0-0.2) /100WBC Smear Tech's Comments PT (10.0-13.1) SEC INR (0.9-1.1) Sodium (135-145) mmol/L Potassium (3.3-5.1) mmol/L Chloride (96-108) mmol/L Carbon Dioxide (22-29) mmol/L Anion Gap (12-20) BUN (9-16) mg/dL Creatinine (0.5-1.4) mg/dL Estim Creat Clear Calc Estimated GFR Random Glucose (60-115) mg/dL Lactic Acid (0.5-2.0) mmol/L Lactic Acid F/U @ 2Hr 0.6 (0.5-2.0) mmol/L Calcium (8.4-10.2) mg/dL Total Bilirubin (0.0-1.0) mg/dL Direct Bilirubin (0.0-0.5) mg/dL AST (5-37) U/L ALT (0-40) U/L Alkaline Phosphatase (39-117) U/L Total Creatine Kinase (38-174) U/L B-Natriuretic Peptide (<100) pg/mL Total Protein (6.5-8.0) g/dL Albumin (3.5-5.0) g/dL COVID-19 ([facility]) (Negative) COVID-19 Clin Com <Candy Dooley, RAZOR GRINDER - Last Filed: 08/07/22 16:39> Lab Results 08/07/22 08/07/22 08/07/22 Range/Units 16:51 16:51 16:51 WBC 18.9 H (4.8-10.8) X10*3/uL RBC 4.84 (4.60-5.80) X10*6/uL Hgb 16.3 (14.0-18.0) g/dl Hct 49.9 (42.0-52.0) % MCV 103.1 H (80.0-98.0) fL MCH 33.7 H (27.0-33.0) pg MCHC 32.7 (31.0-36.0) g/dl RDW 15.2 (11.0-16.0) % Plt Count 141 L (160-400) X10*3/uL MPV 10.4 (9.4-12.4) fL Immature Gran % (Auto) 0.5 H (0.0-0.4) % Neut % (Auto) 82.6 H (45-73) % Lymph % (Auto) 9.4 L (20-40) % [place] % (Auto) 6.9 (2-11) % Eos % (Auto) 0.3 (0-4) % Baso % (Auto) 0.3 (0-2) % Lymph # (Auto) 1.8 (1.2-4.9) X10*3/uL [place] # (Auto) 1.3 H (0.1-1.2) X10*3/uL Eos # (Auto) 0.1 (0.0-0.4) X10*3/uL Baso # (Auto) 0.1 (0.0-0.2) X10*3/uL Abs Immat Gran (auto) 0.09 H (0.00-0.03) X10*3/uL Absolute Neuts (auto) 15.6 H (2.0-8.3) x10*3/uL Absolute Nucleated RBC 0.000 (0.0-0.012) X10*3/uL Nucleated RBC % (auto) 0.0 (0.0-0.2) /100WBC Smear Tech's Comments VERIFIED PT (10.0-13.1) SEC INR (0.9-1.1) Sodium 125 L (135-145) mmol/L Potassium 4.5 (3.3-5.1) mmol/L Chloride 90 L (96-108) mmol/L Carbon Dioxide 28 (22-29) mmol/L Anion Gap 12 (12-20) BUN 40 H (9-16) mg/dL Creatinine 2.14 H (0.5-1.4) mg/dL Estim Creat Clear Calc 37.6 Estimated GFR 31 Random Glucose 125 H (60-115) mg/dL Lactic Acid (0.5-2.0) mmol/L Lactic Acid F/U @ 2Hr (0.5-2.0) mmol/L Calcium 9.1 D (8.4-10.2) mg/dL Total Bilirubin 1.4 H (0.0-1.0) mg/dL Direct Bilirubin 0.5 (0.0-0.5) mg/dL AST 14 (5-37) U/L ALT 9 (0-40) U/L Alkaline Phosphatase 78 (39-117) U/L Total Creatine Kinase 84 (38-174) U/L B-Natriuretic Peptide (<100) pg/mL Total Protein 7.5 (6.5-8.0) g/dL Albumin 4.2 (3.5-5.0) g/dL COVID-19 (GR[facility]GORZ) Negative (Negative) COVID-19 Clin Com See Note 08/07/22 08/07/22 08/07/22 Range/Units 16:51 16:51 16:51 WBC (4.8-10.8) X10*3/uL RBC (4.60-5.80) X10*6/uL Hgb (14.0-18.0) g/dl Hct (42.0-52.0) % MCV (80.0-98.0) fL MCH (27.0-33.0) pg MCHC (31.0-36.0) g/dl RDW (11.0-16.0) % Plt Count (160-400) X10*3/uL MPV (9.4-12.4) fL Immature Gran % (Auto) (0.0-0.4) % Neut % (Auto) (45-73) % Lymph % (Auto) (20-40) % [place] % (Auto) (2-11) % Eos % (Auto) (0-4) % Baso % (Auto) (0-2) % Lymph # (Auto) (1.2-4.9) X10*3/uL [place] # (Auto) (0.1-1.2) X10*3/uL Eos # (Auto) (0.0-0.4) X10*3/uL Baso # (Auto) (0.0-0.2) X10*3/uL Abs Immat Gran (auto) (0.00-0.03) X10*3/uL Absolute Neuts (auto) (2.0-8.3) x10*3/uL Absolute Nucleated RBC (0.0-0.012) X10*3/uL Nucleated RBC % (auto) (0.0-0.2) /100WBC Smear Tech's Comments PT 12.6 (10.0-13.1) SEC INR 1.1 (0.9-1.1) Sodium (135-145) mmol/L Potassium (3.3-5.1) mmol/L Chloride (96-108) mmol/L Carbon Dioxide (22-29) mmol/L Anion Gap (12-20) BUN (9-16) mg/dL Creatinine (0.5-1.4) mg/dL Estim Creat Clear Calc Estimated GFR Random Glucose (60-115) mg/dL Lactic Acid 2.4 H* (0.5-2.0) mmol/L Lactic Acid F/U @ 2Hr (0.5-2.0) mmol/L Calcium (8.4-10.2) mg/dL Total Bilirubin (0.0-1.0) mg/dL Direct Bilirubin (0.0-0.5) mg/dL AST (5-37) U/L ALT (0-40) U/L Alkaline Phosphatase (39-117) U/L Total Creatine Kinase (38-174) U/L B-Natriuretic Peptide 85 (<100) pg/mL Total Protein (6.5-8.0) g/dL Albumin (3.5-5.0) g/dL COVID-19 ([facility]) (Negative) COVID-19 Clin Com 08/07/22 Range/Units 19:49 WBC (4.8-10.8) X10*3/uL RBC (4.60-5.80) X10*6/uL Hgb (14.0-18.0) g/dl Hct (42.0-52.0) % MCV (80.0-98.0) fL MCH (27.0-33.0) pg MCHC (31.0-36.0) g/dl RDW (11.0-16.0) % Plt Count (160-400) X10*3/uL MPV (9.4-12.4) fL Immature Gran % (Auto) (0.0-0.4) % Neut % (Auto) (45-73) % Lymph % (Auto) (20-40) % [place] % (Auto) (2-11) % Eos % (Auto) (0-4) % Baso % (Auto) (0-2) % Lymph # (Auto) (1.2-4.9) X10*3/uL [place] # (Auto) (0.1-1.2) X10*3/uL Eos # (Auto) (0.0-0.4) X10*3/uL Baso # (Auto) (0.0-0.2) X10*3/uL Abs Immat Gran (auto) (0.00-0.03) X10*3/uL Absolute Neuts (auto) (2.0-8.3) x10*3/uL Absolute Nucleated RBC (0.0-0.012) X10*3/uL Nucleated RBC % (auto) (0.0-0.2) /100WBC Smear Tech's Comments PT (10.0-13.1) SEC INR (0.9-1.1) Sodium (135-145) mmol/L Potassium (3.3-5.1) mmol/L Chloride (96-108) mmol/L Carbon Dioxide (22-29) mmol/L Anion Gap (12-20) BUN (9-16) mg/dL Creatinine (0.5-1.4) mg/dL Estim Creat Clear Calc Estimated GFR Random Glucose (60-115) mg/dL Lactic Acid (0.5-2.0) mmol/L Lactic Acid F/U @ 2Hr 0.6 (0.5-2.0) mmol/L Calcium (8.4-10.2) mg/dL Total Bilirubin (0.0-1.0) mg/dL Direct Bilirubin (0.0-0.5) mg/dL AST (5-37) U/L ALT (0-40) U/L Alkaline Phosphatase (39-117) U/L Total Creatine Kinase (38-174) U/L B-Natriuretic Peptide (<100) pg/mL Total Protein (6.5-8.0) g/dL Albumin (3.5-5.0) g/dL COVID-19 ([facility]) (Negative) COVID-19 Clin Com <HADLEY Akbar - Last Filed: 08/07/22 20:54> Critical Care Time Critical Care Time Critical Care Time: No <HADLEY Akbar - Last Filed: 08/07/22 20:54> Discharge Plan Discharge Clinical Impression: Cellulitis, [place], oral, Acute hyponatremia <Candy Dooley NP - Last Filed: 08/07/22 16:39> Patient Disposition: Admitted As Inpatient <Candy Dooley NP - Last Filed: 08/07/22 16:39> Prescriptions: No Action cholecalciferol (vitamin D3) 50 mcg (2,000 unit) capsule 50 mcg PO DAILY Qty: 90 1RF atorvastatin 40 mg tablet 40 mg PO DAILY Qty: 90 3RF furosemide 40 mg tablet 40 mg PO DAILY Qty: 90 3RF lisinopril 20 mg tablet 20 mg PO DAILY Qty: 90 3RF metoprolol succinate 50 mg tablet extended release 24 hr 50 mg PO DAILY Qty: 90 3RF gabapentin 300 mg capsule 300 mg PO TID 14 Days Qty: 90 1RF (DME) NEBULIZER See Rx Instructions .Route .MEDSUPPLY Qty: 1 0RF Rx Instructions: As directed ipratropium-albuterol 0.5 mg-3 mg(2.5 mg base)/3 mL solution for nebulization 3 ml inhalation Q6H 30 Days Qty: 360 5RF aspirin [Aspir-81] 81 mg Tablet,Delayed Release (Dr/Ec) 81 mg PO DAILY <Candy Dooley NP - Last Filed: 08/07/22 16:39>
[2022-08-07 16:36] VITALS: BP 125/53; PULSE 112; RESP 24; TEMP 37.9; O2SAT 97; BMI 43.9
[2022-08-07] MEDS: Acetaminophen 325 MG TABLET 975 MG PO (16:41)
[2022-08-07 16:59] LABS: Basophils Percent Auto 0.3 % (0-2); Hemoglobin 16.3 g/dl (14.0-18.0); Mean Corpuscular HGB Conc 32.7 g/dl (31.0-36.0); Mean Corpuscular Hemoglobin 33.7 pg (27.0-33.0); Mean Corpuscular Volume 103.1 fL (80.0-98.0); PLT CLUMP 1; SCAN SMEAR FLAG 1
[2022-08-07 17:01] LABS: Basophils Absolute Auto 0.1 X10*3/uL (0.0-0.2); Eosinophils Absolute Auto 0.1 X10*3/uL (0.0-0.4); Eosinophils Percent Auto 0.3 % (0-4); Hematocrit 49.9 % (42.0-52.0); Imm Gran Abs Auto 0.09 X10*3/uL (0.00-0.03); Imm Gran Pct Auto 0.5 % (0.0-0.4); Lymphocytes Absolute Auto 1.8 X10*3/uL (1.2-4.9); Lymphocytes Percent Auto 9.4 % (20-40); MANUAL DIFF FLAG SCAN; Mean Platelet Volume 10.4 fL (9.4-12.4); Monocytes Absolute Auto 1.3 X10*3/uL (0.1-1.2); Monocytes Percent Auto 6.9 % (2-11); Neutrophils Absolute Auto 15.6 x10*3/uL (2.0-8.3); Neutrophils Percent Auto 82.6 % (45-73); Red Blood Count 4.84 X10*6/uL (4.60-5.80); Red Cell Distribution Width 15.2 % (11.0-16.0)
[2022-08-07 17:03] LABS: Platelet Count 141 X10*3/uL (160-400); White Blood Count 18.9 X10*3/uL (4.8-10.8)
[2022-08-07 17:04] LABS: SLIDE REVIEW VERIFIED
[2022-08-07 17:09] LABS: INTERNATIONAL NORM RATIO 1.1 (0.9-1.1); Prothrombin Time 12.6 SEC (10.0-13.1)
[2022-08-07 17:13] LABS: COVID-19 Test Negative (Negative); IDNOW Serial# 16C4AD1C
[2022-08-07 17:17] LABS: Alanine Aminotransferase 9 U/L (0-40); Albumin Level 4.2 g/dL (3.5-5.0); Alkaline Phosphatase 78 U/L (39-117); Anion Gap 12 (12-20); Aspartate Amino Transferase 14 U/L (5-37); Bilirubin Direct 0.5 mg/dL (0.0-0.5); Bilirubin Total 1.4 mg/dL (0.0-1.0); Blood Urea Nitrogen 40 mg/dL (9-16); Calcium 9.1 mg/dL (8.4-10.2); Carbon Dioxide 28 mmol/L (22-29); Chloride 90 mmol/L (96-108); Creatinine Clr Calc Pharmacy 37.6; Estimated Glomerular Filt Rate 31; Glucose Random 125 mg/dL (60-115); Potassium 4.5 mmol/L (3.3-5.1); Sodium 125 mmol/L (135-145); Total Protein 7.5 g/dL (6.5-8.0)
[2022-08-07 17:33] LABS: Lactic Acid 2.4 mmol/L (0.5-2.0)
[2022-08-07 17:50] VITALS: BP 144/57; PULSE 106; RESP 18; TEMP 37.6; O2SAT 97
[2022-08-07] MEDS: 0.9 % Sodium Chloride 1,000 ML 999 ML IV ×3 (18:05→22:10)
[2022-08-07 18:12] LABS: B Type Natriuretic Peptide 85 pg/mL (<100)
[2022-08-07] MEDS: cefTRIAXone sodium 1 GM in 0.9 % Sodium Chloride 50 ML IV (18:12)
[2022-08-07] MEDS: Nystatin Oral Susp 500,000 UNIT/5 ML ORAL.SUSP 200000 UNIT BUCCAL (18:12)
--- NOTE | 2022-08-07 18:18 | PC.NURSE ---
pt presents with left face swelling and redness. temp 99.7, was given tylenol in triage. IV in place, fluids and antibiotic running.
[2022-08-07 18:56] LABS: Reflex Lactate? Lactic Acid Added
[2022-08-07 20:09] LABS: ~Lactic Acid-LAB USE ONLY 0.6 mmol/L (0.5-2.0)
--- NOTE | 2022-08-07 21:53 | P.HPHOSP_ITS ---
History of Present Illness Date of Service: 08/07/22 Chief Complaint: Left sided facial swelling This is a 62-year-old male with pertinent history of CKD stage 3, chronic hypoxemic respiratory failure due to COPD on baseline 2 L oxygen at night, mixed hyperlipidemia, essential hypertension who presents to the emergency department for evaluation of left-sided facial swelling. Patient states he 1st noticed 3 days ago and it has been progressive since. It initially started after he was scratching the left side of his face. It soon progressed to cause swelling, redness and warmth. Also has been having associated facial pain. No similar complaints in the past. Noticed whitish discoloration on his tongue and in his mouth. No dysphagia or odynophagia. Patient endorses fever and chills. Denies nausea, vomiting, dyspnea, chest discomfort, palpitations, abdominal pain, changes in urinary or bowel habits. Patient states he is compliant with his home medications for chronic medical conditions. Use 2 L oxygen whenever he is sleeping in the day and at night. Review of Systems Constitutional: Constitutional: Reports fever(s) ENT: Reports halitosis and Reports facial pain Cardiovascular: Cardiovascular: Reports no additional cardiovascular complaints Respiratory: Respiratory: Reports no additional respiratory complaints Gastrointestinal: Gastrointestinal: Reports no additional gastrointestinal complaints Genitourinary: Genitourinary: Reports no additional male genitourinary complaints [facility] Medical History Benign essential hypertension Chronic kidney disease (CKD), stage III (moderate) COPD (chronic obstructive pulmonary disease) Coronary artery disease History of back problems HTN (hypertension) Hypercholesterolemia Impaired fasting glucose Left hand pain Obesity (BMI 30-39.9) Obstructive sleep apnea Peripheral arterial disease Post herpetic neuralgia Pure hypercholesterolemia Secondary polycythemia Severe chronic obstructive pulmonary disease Sleep apnea Smoker Vitamin D deficiency Family History Father CVD (cardiovascular disease) Diabetes Hypertension Mother Diabetes Hypertension CVD (cardiovascular disease) Brother Obese Pneumonia Heart attack Sister Seizures Son Bipolar disorder Surgical History History of prostate surgery Recent surgical procedure on lower extremity Social History Housing: House Alcohol intake: current Alcohol intake frequency: holidays/special occasions only Patient Tobacco Use Status: Current everyday Tobacco user Tobacco use type: Cigarette Cigarette Packs Per Day: 1 Cigarettes Per Day: 20 e-Cigarette/Vaping Use: Never Used Second Hand Smoke Exposure: Yes Advance Directives: No Advance Directives Information Provided: No service: No Current occupational status: disabled Gender identity: Male Cognitive needs: Yes (cane) Hearing needs: No Vision needs: Yes (reading glasses) Meds Allergies Allergy/AdvReac Type Severity Reaction Status Date / Time No Known Allergies Allergy Verified 12/09/21 12:22 Active Medications: Current Medications Acetaminophen (Acetaminophen 325 Mg Tablet) 650 mg PO Q6H PRN PRN Reason: Pain, Mild (Pain Scale 1-3) Enoxaparin Sodium (Enoxaparin Sodium 40 Mg/0.4 Ml Syringe) 40 mg SUBCUT Q24H SHERRON Vancomycin HCl 1,000 mg/Vancomycin HCl 750 mg/ Sodium Chloride 535 mls @ 267.5 mls/hr IV ONCE ONE Stop: 08/07/22 23:43 Sodium Chloride (Ns) 1,000 mls @ 999 mls/hr IV .Q1H1M ONE Stop: 08/07/22 22:47 Melatonin (Melatonin 3 Mg Tablet) 6 mg PO BEDTIME PRN PRN Reason: Insomnia Nystatin (Nystatin Oral Susp 500,000 Unit/5 Ml Oral.Susp) 400,000 unit PO QID [facility]; Protocol Ondansetron HCl (Ondansetron Hcl 4 Mg/2 Ml Vial) 4 mg IVPUSH Q8H PRN PRN Reason: Nausea and Vomiting Pharmacy Consult (Consult Rx Vancomycin Dosing) 1 each MISCELLANE DAILY PRN PRN Reason: Consult order Sodium Chloride (0.9 % Sodium Chloride Flush 3 Ml Syringe) 3 ml IVFLUSH QSHIFT [facility] Home Medications Medication Instructions Recorded Confirmed Last Taken Type aspirin 81 mg tablet,delayed 81 mg PO DAILY 07/01/20 05/18/21 Unknown History release Physical Exam Vital Signs and Narrative: Vital Signs: Last Vital Signs Temp 99.7 F 08/07/22 17:50 Pulse 106 H 08/07/22 17:50 Resp 18 08/07/22 17:50 BP 144/57 H 08/07/22 17:50 Pulse Ox 97 08/07/22 17:50 O2 Del Method 08/07/22 17:50 Oxygen Flow Rate 3 08/07/22 16:36 BMI result Body Mass Index 43.9 Middle-aged male lying in bed on 2 L supplemental oxygen HEENT: Neck supple, poor dentition with whitish spot over tongue, no trismus Skin: Erythematous warm tender skin over left-sided of the face Tachycardic with regular rhythm, S1-S2 heard Decreased breath sounds at bases Abdomen soft nontender, no guarding, no rigidity Patient is awake, alert and oriented to self, place, time and person ; no focal motor deficit Psych: Normal mood No pedal edema Results Labs CBC and Chem 7: 08/07/22 16:51 08/07/22 16:51 Labs: Laboratory Results - last 24 hr 08/07/22 08/07/22 08/07/22 16:51 16:51 16:51 MCV 103.1 H MCH 33.7 H MCHC 32.7 RDW 15.2 Plt Count 141 L MPV 10.4 Immature Gran % (Auto) 0.5 H Neut % (Auto) 82.6 H Lymph % (Auto) 9.4 L [place] % (Auto) 6.9 Eos % (Auto) 0.3 Baso % (Auto) 0.3 Lymph # (Auto) 1.8 [place] # (Auto) 1.3 H Eos # (Auto) 0.1 Baso # (Auto) 0.1 Abs Immat Gran (auto) 0.09 H Absolute Neuts (auto) 15.6 H Absolute Nucleated RBC 0.000 Nucleated RBC % (auto) 0.0 Smear Tech's Comments VERIFIED PT INR Anion Gap 12 Estim Creat Clear Calc 37.6 Estimated GFR 31 Random Glucose 125 H Lactic Acid Lactic Acid F/U @ 2Hr Calcium 9.1 D Total Bilirubin 1.4 H Direct Bilirubin 0.5 AST 14 ALT 9 Alkaline Phosphatase 78 Total Creatine Kinase 84 B-Natriuretic Peptide Total Protein 7.5 Albumin 4.2 COVID-19 (GRZEGORZ) Negative COVID-19 Clin Com See Note 08/07/22 08/07/22 08/07/22 16:51 16:51 16:51 MCV MCH MCHC RDW Plt Count MPV Immature Gran % (Auto) Neut % (Auto) Lymph % (Auto) [place] % (Auto) Eos % (Auto) Baso % (Auto) Lymph # (Auto) [place] # (Auto) Eos # (Auto) Baso # (Auto) Abs Immat Gran (auto) Absolute Neuts (auto) Absolute Nucleated RBC Nucleated RBC % (auto) Smear Tech's Comments PT 12.6 INR 1.1 Anion Gap Estim Creat Clear Calc Estimated GFR Random Glucose Lactic Acid 2.4 H* Lactic Acid F/U @ 2Hr Calcium Total Bilirubin Direct Bilirubin AST ALT Alkaline Phosphatase Total Creatine Kinase B-Natriuretic Peptide 85 Total Protein Albumin COVID-19 (GRZEGORZ) COVID-19 Clin Com 08/07/22 19:49 MCV MCH MCHC RDW Plt Count MPV Immature Gran % (Auto) Neut % (Auto) Lymph % (Auto) [place] % (Auto) Eos % (Auto) Baso % (Auto) Lymph # (Auto) [place] # (Auto) Eos # (Auto) Baso # (Auto) Abs Immat Gran (auto) Absolute Neuts (auto) Absolute Nucleated RBC Nucleated RBC % (auto) Smear Tech's Comments PT INR Anion Gap Estim Creat Clear Calc Estimated GFR Random Glucose Lactic Acid Lactic Acid F/U @ 2Hr 0.6 Calcium Total Bilirubin Direct Bilirubin AST ALT Alkaline Phosphatase Total Creatine Kinase B-Natriuretic Peptide Total Protein Albumin COVID-19 (GRZEGORZ) COVID-19 Clin Com Imaging Radiologist's Impressions: Impressions Soft Tissue Neck CT 08/07/22 19:09 IMPRESSION: 1. Mild subcutaneous edema/stranding in the lower left face and left neck with slight asymmetric thickening of the left platysma muscle. Correlate with evidence of cellulitis on exam. No fluid collection suspicious for abscess. 2. No cervical lymphadenopathy. 3. 1.8 cm low-density subdermal lesion in the left lower face overlying the mandible, likely sebaceous or epidermal inclusion cyst. Chest CT 08/07/22 19:10 IMPRESSION: Chronic right pleural effusion with pleural thickening and rounded atelectasis in the right lower lobe, similar to the previous study. Increased interstitial markings suggesting superimposed interstitial edema or airways inflammation. Moderate upper lobe predominant centrilobular emphysema. Fleischner guidelines were followed. Head CT 08/07/22 19:11 IMPRESSION: 1. No acute intracranial abnormality. Right posterior parietal and left premalar soft tissue swelling without underlying acute fracture. Assessment and Plan (1) Sepsis: Status: Acute (2) Cellulitis: Status: Acute (3) Salena, oral: Status: Acute (4) HAYLEY (acute kidney injury): Status: Acute (5) Acute hyponatremia: Status: Acute (6) Chronic kidney disease (CKD), stage III (moderate): Qualifiers: Chronic kidney disease stage 3 subtype: stage 3a (GFR 45-59) Qualified Code(s): N18.31 - Chronic kidney disease, stage 3a Status: Acute (7) Pure hypercholesterolemia: Status: Acute (8) Benign essential hypertension: Status: Acute (9) Severe chronic obstructive pulmonary disease: Status: Acute (10) Chronic respiratory failure with hypoxia: Status: Acute Plan This is a 62-year-old male with pertinent history of CKD stage 3, chronic hypoxemic respiratory failure due to COPD on baseline 2 L oxygen at night, mixed hyperlipidemia, essential hypertension who presents to the emergency department for evaluation of left-sided facial swelling. #. Sepsis due to left-sided facial cellulitis -will admit patient and initiate IV vancomycin. Lactic acid and blood culture obtained. Resuscitated with IV crystalloids in the ER. Imaging with subcutaneous edema and thickening of left platysma. No abscess noted. #. HAYLEY on CKD stage 3 -prerenal due to above. Monitor creatinine and urine output with fluid r esuscitation. Avoid nephrotoxins. #. Acute hyponatremia -likely hypotonic hypovolemic. Monitor with fluid resuscitation. Urine studies pending #. Type A lactic acidosis -resolved with fluid resuscitation #. Oropharyngeal candidiasis -moderate to severe. Initiating fluconazole p.o. -obtain A1c #. Essential hypertension -hold lisinopril and Lasix due to HAYLEY #. Obesity -counselled regarding weight loss #. Chronic hypoxic respiratory failure due to COPD -on baseline 2 L at night. No exacerbation on admission. DuoNebs p.r.n. -?not on home inhalers Med rec pending DVT prophylaxis: Lovenox 40 mg daily Full code Cardiac diet Admit as inpatient and will require two night minimum hospital stay for IV antibiotics Quality Stroke Does the patient have a stroke diagnosis?: No VTE Prior VTE?: No VTE Risk Level:: Medical - moderate - high VTE Device Contraindication: Treatment Not Indicated VTE Drug Contraindication: N/A - Med Ordered
[2022-08-07] MEDS: Enoxaparin Sodium 40 MG/0.4 ML SYRINGE SUBCUT (22:08)
[2022-08-07] MEDS: Fluconazole 100 MG TABLET 200 MG PO (22:09)
[2022-08-07 22:19] LABS: Osmolality, Serum 291 mosm/kg (281-305)
--- NOTE | 2022-08-07 22:21 | PHA.PROG ---
Admission Date/Time: August 07, 2022 21:45 Indication: skin/skin structure Weight in k.862 kg Adjusted body weight in K.305 [place] body weight in Kg: Obesity Dosing Indication % IBW: Serum Creatinine - Last 168 Hours 08/07/22 16:51 Creatinine 2.14 H Estimated CrCl and GFR - Last 168 Hours 08/07/22 16:51 Estim Creat Clear Calc 37.6 Estimated GFR 31 Vancomycin Loading Dose: 2000 mg Current Vancomycin Dosing Regimen: 750 mg q24h Vancomycin Monitoring using AUC goal of 400 - 600 range with trough as surrogate marker: auc 508, trough 16 Date and Time for next Vancomycin Level to be drawn: lesley 08/09 @2100 Pharmacist Comments on Vancomycin Plan: USING OBESE MODEL SCR MAY RAPIDLY IMPROVE WITH FLUIDS, CONSIDER INCREASING DOSE. 750MG IS BASED ON RENAL FUNCTION NOT WEIGHT MONITOR URINE OUTPUT AND DOSE DUMPING Vancomycin dosing will take advantage of OparaRX as a clinical decision support tool that uses Bayesian modeling to calculate individual patient's pharmacokinetic parameters and forecast the patient's drug concentration time course with the target goal AUC 24 range of 400 - 600 mg/L/hr.
--- NOTE | 2022-08-07 22:23 | PC.NURSE ---
Attempted to give report at 22:20. RN will call back.
[2022-08-07 23:53] VITALS: BP 114/67; PULSE 98; RESP 20; TEMP 37.7; O2SAT 98
[2022-08-08] MEDS: Albuterol/Iprat 2.5/0.5MG 3 ML AMPUL.NEB INHALE (02:14)
[2022-08-08 02:16] VITALS: PULSE 113; RESP 24; O2SAT 91
[2022-08-08 02:30] LABS: Osmolality Urine 230 mosm/kg (373-1093)
[2022-08-08 03:56] VITALS: BP 106/48; PULSE 108; RESP 20; TEMP 37.5; O2SAT 93
[2022-08-08 06:40] LABS: MANUAL DIFF FLAG NO
[2022-08-08 06:53] LABS: Estimated Average Glucose 111 mg/dL; Hemoglobin A1c % 5.5 %
[2022-08-08 06:55] LABS: Basophils Percent Auto 0.3 % (0-2); Eosinophils Percent Auto 0.1 % (0-4); Hemoglobin 14.3 g/dl (14.0-18.0); Imm Gran Abs Auto 0.06 X10*3/uL (0.00-0.03); Imm Gran Pct Auto 0.4 % (0.0-0.4); Lymphocytes Absolute Auto 1.6 X10*3/uL (1.2-4.9); Lymphocytes Percent Auto 10.9 % (20-40); Mean Corpuscular HGB Conc 31.8 g/dl (31.0-36.0); Mean Corpuscular Hemoglobin 33.3 pg (27.0-33.0); Mean Corpuscular Volume 104.9 fL (80.0-98.0); Mean Platelet Volume 10.8 fL (9.4-12.4); Monocytes Percent Auto 6.7 % (2-11); Neutrophils Percent Auto 81.6 % (45-73); Platelet Count 129 X10*3/uL (160-400); Red Blood Count 4.29 X10*6/uL (4.60-5.80); Red Cell Distribution Width 15.5 % (11.0-16.0); White Blood Count 14.7 X10*3/uL (4.8-10.8)
[2022-08-08 07:04] LABS: Anion Gap 12 (12-20); Blood Urea Nitrogen 33 mg/dL (9-16); Calcium 8.3 mg/dL (8.4-10.2); Carbon Dioxide 30 mmol/L (22-29); Chloride 101 mmol/L (96-108); Creatinine Clr Calc Pharmacy 53.6; Estimated Glomerular Filt Rate 47; Glucose Random 115 mg/dL (60-115); Potassium 4.8 mmol/L (3.3-5.1); Sodium 138 mmol/L (135-145)
[2022-08-08 07:38] VITALS: BP 104/65; PULSE 95; RESP 18; TEMP 38.1; O2SAT 95
[2022-08-08] MEDS: Fluconazole 100 MG TABLET PO (07:39)
[2022-08-08] MEDS: 0.9 % Sodium Chloride Flush 3 ML SYRINGE IVFLUSH ×3 (07:40→22:35)
--- NOTE | 2022-08-08 07:49 | HE.PHANOTE ---
WILLIE GAN IN SETTING OF IMPROVING RENAL FUNCTION, CHANGING DOSE TO 1G Q24H JOSE MARIA
--- NOTE | 2022-08-08 08:50 | MHC.CM.PN ---
PT REPORTS HE LIVES WITH HIS ADULT SONS HE HAS A [employer] SETTER THAT COMES IN 3X/WEEK TO ASSIST WITH CLEANING, SHOWERS AND OTHER PERSONAL CARE PT HAS HOME OXYGEN VIA [facility] AND A NEBULIZER BUT REPORTS HE NEEDS A NEW ONE HE SAYS HIS DAUGHTER IN LAW HAS A HAND HELD NEBULIZER AND HE WANTS ONE LIKE THAT INFORMATION WILL BE RELAYED TO RT PT COMPLETED A HCP TODAY NAMING HIS SONS, LUCY DASILVA AND RITCHIE, HIS PRIMARY AND ALTERNATE AGENTS RESPECTIVELY PT IS NOT COVID [facility] PCP: MARGARITO MONROE IMM DELIVERED CURRENT DC PLAN IS HOME WITH RESUMPTION OF [employer] SETTER AND [employer] FAMILY TO TRANSPORT
--- NOTE | 2022-08-08 09:03 | PC.NURSE ---
Talked to pharmacist. Was told D5w and [place] Sodium/Sulbactam Na is compatible for piggyback administration.
[2022-08-08] MEDS: Dextrose 5 % 1,000 ML 125 ML IVCONT (09:11)
[2022-08-08] MEDS: Ampicillin Sodium/Sulbactam Na 3 GM in 0.9 % Sodium Chloride 100 ML IV ×3 (09:11→19:58)
--- NOTE | 2022-08-08 09:53 | PHA.MEDREC ---
Pharmacy Consult ? Medication Reconciliation Pharmacy has completed the medication reconciliation. Patient confirmed all medications. [facility] [place], [facility]
[2022-08-08 10:28] LABS: C Reactive Protein 18.63 mg/dL (< or = 0.50); Sodium 137 mmol/L (135-145)
[2022-08-08 10:50] LABS: HIV AB/AG Nonreactive (Nonreactive); HIV Num 1 0.19 S/CO (0.00-0.99)
[2022-08-08] MEDS: Acetaminophen 325 MG TABLET 650 MG PO (10:55)
[2022-08-08 11:37] LABS: Folate 2.5 ng/mL (> or = 4.0); Vitamin B12 401 pg/mL (200-900)
[2022-08-08] MEDS: Cholecalciferol (Vitamin D3) 25 MCG TABLET 50 MCG PO (12:15)
[2022-08-08] MEDS: Atorvastatin Calcium 40 MG TABLET PO (12:16)
[2022-08-08] MEDS: Furosemide 40 MG TABLET PO (12:16)
[2022-08-08] MEDS: Multivitamin TABLET 1 TAB PO (12:16)
[2022-08-08] MEDS: lisinopriL 20 MG TABLET PO (12:16)
[2022-08-08] MEDS: Metoprolol Succinate ER 50 MG TAB.ER.24H PO (12:16)
[2022-08-08] MEDS: Aspirin Enteric Coated 81 MG TABLET.DR PO (12:16)
[2022-08-08] MEDS: Nicotine 14 MG PATCH.TD24 TRANSDERMA (12:16)
[2022-08-08 12:22] VITALS: BP 140/65; PULSE 116
--- NOTE | 2022-08-08 13:19 | HO.PM.IMPN ---
Subjective Subjective Date of Service: 08/08/22 Interval History: L-sided facial swelling febrile to 100.5 this morning mandibular cyst has been present for years Review of Systems Review of Systems: Yes all other systems are reviewed and are negative Physical Exam Vital Signs: Vital Signs: Last Vital Signs Temp 100.5 F H 08/08/22 07:38 Pulse 116 H 08/08/22 12:22 Resp 18 08/08/22 07:38 BP 140/65 H 08/08/22 12:22 Pulse Ox 95 08/08/22 07:38 O2 Del Method 08/08/22 07:38 O2 Flow Rate 2 08/08/22 07:38 Oxygen Flow Rate 3 08/07/22 16:36 BMI result Body Mass Index 43.9 Gen: in no acute distress HEENT: L-sided facial/neck swelling/erythema/induration. palpable cyst without fluctuance overlying L mandiblke Neck: as above Lungs: clear to auscultation bilaterally Heart: tachycardic, no murmurs Abd: soft, non-tender, non-distended Ext: no edema Skin: warm/well-perfused Neuro: alert and oriented x3, no focal findings Psych: appropriate affect Objective Data Active Medications Acetaminophen (Acetaminophen 325 Mg Tablet) 650 mg PO Q6H PRN PRN Reason: Pain, Mild (Pain Scale 1-3) Last Admin: 08/08/22 10:55 Dose: 650 mg Documented By: RORY Albuterol/Ipratropium (Albuterol/Iprat 2.5/0.5mg 3 Ml Ampul.Neb) 3 ml INHALE RQ4H PRN PRN Reason: wheezing Last Admin: 08/08/22 02:14 Dose: 3 ml Documented By: NEAL Aspirin (Aspirin Enteric Coated 81 Mg Tablet.) 81 mg PO DAILY [facility] Last Admin: 08/08/22 12:16 Dose: 81 mg Documented By: RORY Atorvastatin Calcium (Atorvastatin Calcium 40 Mg Tablet) 40 mg PO DAILY [facility] Last Admin: 08/08/22 12:16 Dose: 40 mg Documented By: RORY Enoxaparin Sodium (Enoxaparin Sodium 40 Mg/0.4 Ml Syringe) 40 mg SUBCUT Q24H [facility] Last Admin: 08/07/22 22:08 Dose: 40 mg Documented By: LAILA Fluconazole (Fluconazole 100 Mg Tablet) 100 mg PO DAILY [facility] Last Admin: 08/08/22 07:39 Dose: 100 mg Documented By: RORY Folic Acid (Folic Acid 1 Mg Tablet) 1 mg PO DAILY [facility] Furosemide (Furosemide 40 Mg Tablet) 40 mg PO DAILY [facility]; Protocol Last Admin: 08/08/22 12:16 Dose: 40 mg Documented By: RORY Gabapentin (Gabapentin 300 Mg Capsule) 300 mg PO TID [facility] Vancomycin HCl 1,000 mg/ (Sodium Chloride) 270 mls @ 270 mls/hr IV Q24H [facility] Ampicillin Sodium/Sulbactam (Sodium 3 gm/ Sodium Chloride) 100 mls @ 200 mls/hr IV Q6H [facility] Last Infusion: 08/08/22 11:17 Dose: 0 mls/hr Documented By: RORY Dextrose (D5w) 1,000 mls @ 125 mls/hr IVCONT .Q8H [facility] Last Admin: 08/08/22 09:11 Dose: 125 mls/hr Documented By: RORY Lisinopril (Lisinopril 20 Mg Tablet) 20 mg PO DAILY [facility]; Protocol Last Admin: 08/08/22 12:16 Dose: 20 mg Documented By: RORY Melatonin (Melatonin 3 Mg Tablet) 6 mg PO BEDTIME PRN PRN Reason: Insomnia Metoprolol Succinate (Metoprolol Succinate Er 50 Mg Tab.Er.24h) 50 mg PO DAILY [facility]; Protocol Last Admin: 08/08/22 12:16 Dose: 50 mg Documented By: RORY Multivitamins/Vitamin C (Multivitamin Tablet) 1 tab PO DAILY [facility] Last Admin: 08/08/22 12:16 Dose: 1 tab Documented By: RORY Nicotine (Nicotine 14 Mg Patch.Td24) 14 mg TRANSDERMA DAILY [facility] Last Admin: 08/08/22 12:16 Dose: 14 mg Documented By: RORY Ondansetron HCl (Ondansetron Hcl 4 Mg/2 Ml Vial) 4 mg IVPUSH Q8H PRN PRN Reason: Nausea and Vomiting Pharmacy Consult (Consult Rx Vancomycin Dosing) 1 each MISCELLANE DAILY PRN PRN Reason: Consult order Sodium Chloride (0.9 % Sodium Chloride Flush 3 Ml Syringe) 3 ml IVFLUSH QSHIFT [facility] Last Admin: 12/05/22 07:40 Dose: 3 ml Documented By: RORY Vitamin D (Cholecalciferol (Vitamin D3) 25 Mcg Tablet) 50 mcg PO DAILY [facility] Last Admin: 08/08/22 12:15 Dose: 50 mcg Documented By: RORY Labs CBC & Chem 7: 08/08/22 05:58 08/08/22 09:40 Labs: Laboratory Results - last 24 hr 08/07/22 08/07/22 08/07/22 16:51 16:51 16:51 MCV 103.1 H MCH 33.7 H MCHC 32.7 RDW 15.2 Plt Count 141 L MPV 10.4 Immature Gran % (Auto) 0.5 H Neut % (Auto) 82.6 H Lymph % (Auto) 9.4 L [place] % (Auto) 6.9 Eos % (Auto) 0.3 Baso % (Auto) 0.3 Lymph # (Auto) 1.8 [place] # (Auto) 1.3 H Eos # (Auto) 0.1 Baso # (Auto) 0.1 Abs Immat Gran (auto) 0.09 H Absolute Neuts (auto) 15.6 H Absolute Nucleated RBC 0.000 Nucleated RBC % (auto) 0.0 Smear Tech's Comments VERIFIED PT INR Anion Gap 12 Estim Creat Clear Calc 37.6 Estimated GFR 31 Random Glucose 125 H Estimat Average Glucose Hemoglobin A1c % Osmolality Lactic Acid Lactic Acid F/U @ 2Hr Calcium 9.1 D Total Bilirubin 1.4 H Direct Bilirubin 0.5 AST 14 ALT 9 Alkaline Phosphatase 78 Total Creatine Kinase 84 C-Reactive Protein B-Natriuretic Peptide Total Protein 7.5 Albumin 4.2 Vitamin B12 Folate Urine Osmolality Ur Random Sodium COVID-19 ([facility]ZEGORZ) Negative COVID-19 Clin Com See Note HIV 1&2 Ab/P24 Ag 4thGn 08/07/22 08/07/22 08/07/22 16:51 16:51 16:51 MCV MCH MCHC RDW Plt Count MPV Immature Gran % (Auto) Neut % (Auto) Lymph % (Auto) [place] % (Auto) Eos % (Auto) Baso % (Auto) Lymph # (Auto) [place] # (Auto) Eos # (Auto) Baso # (Auto) Abs Immat Gran (auto) Absolute Neuts (auto) Absolute Nucleated RBC Nucleated RBC % (auto) Smear Tech's Comments PT 12.6 INR 1.1 Anion Gap Estim Creat Clear Calc Estimated GFR Random Glucose Estimat Average Glucose Hemoglobin A1c % Osmolality Lactic Acid 2.4 H* Lactic Acid F/U @ 2Hr Calcium Total Bilirubin Direct Bilirubin AST ALT Alkaline Phosphatase Total Creatine Kinase C-Reactive Protein B-Natriuretic Peptide 85 Total Protein Albumin Vitamin B12 Folate Urine Osmolality Ur Random Sodium COVID-19 ([facility]) COVID-19 Clin Com HIV 1&2 Ab/P24 Ag 4thGn 08/07/22 08/07/22 08/08/22 16:51 19:49 02:00 MCV MCH MCHC RDW Plt Count MPV Immature Gran % (Auto) Neut % (Auto) Lymph % (Auto) [place] % (Auto) Eos % (Auto) Baso % (Auto) Lymph # (Auto) [place] # (Auto) Eos # (Auto) Baso # (Auto) Abs Immat Gran (auto) Absolute Neuts (auto) Absolute Nucleated RBC Nucleated RBC % (auto) Smear Tech's Comments PT INR Anion Gap Estim Creat Clear Calc Estimated GFR Random Glucose Estimat Average Glucose Hemoglobin A1c % Osmolality 291 Lactic Acid Lactic Acid F/U @ 2Hr 0.6 Calcium Total Bilirubin Direct Bilirubin AST ALT Alkaline Phosphatase Total Creatine Kinase C-Reactive Protein B-Natriuretic Peptide Total Protein Albumin Vitamin B12 Folate Urine Osmolality 230 L Ur Random Sodium COVID-19 ([facility]) COVID-19 [employer] Com HIV 1&2 Ab/P24 Ag 4thGn 08/08/22 08/08/22 08/08/22 02:00 05:58 05:58 MCV MCH MCHC RDW Plt Count MPV Immature Gran % (Auto) Neut % (Auto) Lymph % (Auto) [place] % (Auto) Eos % (Auto) Baso % (Auto) Lymph # (Auto) [place] # (Auto) Eos # (Auto) Baso # (Auto) Abs Immat Gran (auto) Absolute Neuts (auto) Absolute Nucleated RBC Nucleated RBC % (auto) Smear Tech's Comments PT INR Anion Gap Estim Creat Clear Calc Cancelled Estimated GFR Cancelled Random Glucose Estimat Average Glucose 111 Hemoglobin A1c % 5.5 Osmolality Lactic Acid Lactic Acid F/U @ 2Hr Calcium Total Bilirubin Direct Bilirubin AST ALT Alkaline Phosphatase Total Creatine Kinase C-Reactive Protein B-Natriuretic Peptide Total Protein Albumin Vitamin B12 Folate Urine Osmolality Ur Random Sodium 20.0 COVID-19 ([facility]) COVID-19 Clin Com HIV 1&2 Ab/P24 Ag 4thGn 08/08/22 08/08/22 08/08/22 05:58 05:58 09:40 MCV 104.9 H MCH 33.3 H MCHC 31.8 RDW 15.5 Plt Count 129 L MPV 10.8 Immature Gran % (Auto) 0.4 Neut % (Auto) 81.6 H Lymph % (Auto) 10.9 L [place] % (Auto) 6.7 Eos % (Auto) 0.1 Baso % (Auto) 0.3 Lymph # (Auto) 1.6 [place] # (Auto) 1.0 Eos # (Auto) 0.0 Baso # (Auto) 0.0 Abs Immat Gran (auto) 0.06 H Absolute Neuts (auto) 12.0 H Absolute Nucleated RBC 0.000 Nucleated RBC % (auto) 0.0 Smear Tech's Comments PT INR Anion Gap 12 Estim Creat Clear Calc 53.6 Estimated GFR 47 Random Glucose 115 Estimat Average Glucose Hemoglobin A1c % Osmolality Lactic Acid Lactic Acid F/U @ 2Hr Calcium 8.3 L D Total Bilirubin Direct Bilirubin AST ALT Alkaline Phosphatase Total Creatine Kinase C-Reactive Protein 18.63 H B-Natriuretic Peptide Total Protein Albumin Vitamin B12 Folate Urine Osmolality Ur Random Sodium COVID-19 ([facility]) COVID-[employer] Com HIV 1&2 Ab/P24 Ag 4thGn 08/08/22 08/08/22 09:40 09:40 MCV MCH MCHC RDW Plt Count MPV Immature Gran % (Auto) Neut % (Auto) Lymph % (Auto) [place] % (Auto) Eos % (Auto) Baso % (Auto) Lymph # (Auto) [place] # (Auto) Eos # (Auto) Baso # (Auto) Abs Immat Gran (auto) Absolute Neuts (auto) Absolute Nucleated RBC Nucleated RBC % (auto) Smear Tech's Comments PT INR Anion Gap Estim Creat Clear Calc Estimated GFR Random Glucose Estimat Average Glucose Hemoglobin A1c % Osmolality Lactic Acid Lactic Acid F/U @ 2Hr Calcium Total Bilirubin Direct Bilirubin AST ALT Alkaline Phosphatase Total Creatine Kinase C-Reactive Protein B-Natriuretic Peptide Total Protein Albumin Vitamin B12 401 Folate 2.5 L Urine Osmolality Ur Random Sodium COVID-19 ([facility]) COVID-19 [employer] Com HIV 1&2 Ab/P24 Ag 4thGn Nonreactive Assessment and Plan (1) Sepsis: Status: Acute Plan d#2 62yo M with CKD3, chronic hypoxic respiratory failure on 2L O2 at night, HLD, and HTN presenting with L-sided facial swelling, admitted for sepsis # sepsis due to L-sided facial/neck cellulitis - vancomycin d#2, ampicillin-sulbactam d#1. follow BCx. no abscess noted. ID consultation. # HAYLEY/CKD3 - prerenal, HAYLEY resolved with IV fluid resuscitations # hypoNa - Na corrected too quickly 125->138 over 13hr. will start D5W and check Na q4h and consult Nephrology # lactic acidosis - resolved with fluid resuscitation # oral thrush - fluconazole d#2, A1c normal, HIV negative # folate deficiency - start folate replacement # CAD - continue ASA, statin # HTN - resume metoprolol, lisinopril, and furosemide # morbid obesity - diet/exercise counseling # chronic hypoxic respiratory failure due to COPD - not in acute exacerbation, continue O2 2L at night # tobacco abuse - NRT # VTE ppx: LMWH # dispo: anticipate home eventually In my clinical judgment, the patient requires continued inpatient hospitalization for the following reasons: IV ABX Quality Stroke Does the patient have a stroke diagnosis?: No VTE Prior VTE?: No VTE Risk Level:: Medical - moderate - high VTE Device Contraindication: Treatment Not Indicated VTE Drug Contraindication: N/A - Med Ordered
[2022-08-08 13:52] LABS: Creatinine Urine 52.88 mg/dL
--- NOTE | 2022-08-08 14:15 | CONS_ITS ---
DATE OF SERVICE: 08/08/2022 REASON FOR CONSULTATION: I was called to see this patient to assist in management of hyponatremia and stage 3 chronic kidney disease. HISTORY OF PRESENT ILLNESS: Ja is a 62-year-old man with severe COPD with oxygen dependency, obesity, chronic kidney disease stage 3, comes in because of new onset of facial swelling. At the time of admission, serum sodium was 125 and within 12 hours, sodium changed to 137 millimoles, and hence this consultation. His baseline serum creatinine is between 1.2 to 1.4 mg/dL. At the time of admission, creatinine was 2.14, which has improved to 1.5 as of today. PAST MEDICAL HISTORY: Ongoing medical problems include history of obesity, COPD, hypertension, chronic kidney disease stage 3, hyperlipidemia, obstructive sleep apnea, history of secondary polycythemia. FAMILY HISTORY: Significant for coronary artery disease, hypertension, diabetes. No history of kidney disease. PAST SURGICAL HISTORY: Includes prostate surgery. SOCIAL HISTORY: He consumes alcohol frequently. He smokes up to 1 pack per day. ALLERGIES: NO KNOWN DRUG ALLERGIES HAVE BEEN DOCUMENTED. MEDICATIONS: Home medications include aspirin, all the current medications reviewed, and he has been started on lisinopril. REVIEW OF SYSTEMS: Facial swelling. He has shortness of breath, but this is not new. No chest pain, nausea, vomiting. No abdominal pain, diarrhea, constipation. No urinary symptoms. He has leg edema, which is not new. PHYSICAL EXAMINATION: GENERAL: Ja is a 62-year-old man who is obese, lying flat, comfortable, not in distress. HEENT: He has diffuse facial swelling including periorbital swelling. Mucosa is moist. LUNGS: Bilateral scattered rhonchi. HEART: S1, S2 heard. No gallop. ABDOMEN: Obese, soft, nontender. EXTREMITIES: 1+ edema. No rash. No clubbing. VITAL SIGNS: Blood pressure today was 104/65, pulse 95, temperature 100.5. LABORATORY DATA: Sodium 138, potassium 4.8, BUN 33, creatinine 1.5, CO2 30 calcium 8.3. C-reactive protein 18.6. WBC 14.7, hemoglobin 14.3, platelet count of 129. Urinalysis in April showed no protein, no blood in the past. He has had some blood and protein. PROBLEMS: 1. Acute kidney injury superimposed on chronic kidney disease. Acute kidney injury is most likely due to hypoperfusion. Serum creatinine was 2.4 on admission, which has improved to 1.5. At this time, serum creatinine is close to baseline. He probably had a component of hypoperfusion. Obstruction is a possibility, but other Glomerular, interstitial disease also seem unlikely at this time. 2. Hyponatremia, which is multifactorial, and the concern is sodium corrected from 125 to 135 within 12 hours. However, the followup sodium is 137. At this point, we will keep him on an oral free water restriction. Monitor serum sodium every 4 hours to avoid rapid correction. If the sodium increases further, I will administer D5W. 3. Facial edema. He has subcutaneous emphysema related to underlying COPD. I would certainly check serum complements and C3 inhibitor. 4. Obesity. 5. Severe COPD. Again, recommendations will include free water restriction of 1.2 L per 24 hours. Holding lisinopril due to low blood pressure. No need for IV hydration. Renal function is improving. Continue to monitor renal function. Continue to avoid nephrotoxic agents. He needs workup for the facial swelling and will not use NAE inhibitors until this has resolved. I will follow him along with the team. Adrián Frank MD BPA/MODL / [id number]
[2022-08-08 14:23] LABS: Sodium 134 mmol/L (135-145)
[2022-08-08] MEDS: Gabapentin 300 MG CAPSULE PO ×2 (14:36→19:59)
[2022-08-08] MEDS: Folic Acid 1 MG TABLET PO (14:36)
--- NOTE | 2022-08-08 15:20 | W.PM.IDCN ---
History of Present Illness Data of Consult Service Date: 08/08/22 Requesting physician: Clint Boyce Primary Care Provider: Oswaldo Alvarez MD HPI Reason for consult: facial cellulitis He presents with 4/10 left ear pain for two days and last night spread into face and facial swelling occurred. He is edentulous. He has no fever or chills. Review of Systems Review of Systems: Yes all other systems are reviewed and are negative [facility] Past Medical History Medical History (Updated 08/08/22 @ 15:23 by Sanna Owens MD) Benign essential hypertension Cellulitis, face Chronic kidney disease (CKD), stage III (moderate) COPD (chronic obstructive pulmonary disease) Coronary artery disease History of back problems HTN (hypertension) Hypercholesterolemia Impaired fasting glucose Left hand pain Obesity (BMI 30-39.9) Obstructive sleep apnea Peripheral arterial disease Post herpetic neuralgia Pure hypercholesterolemia Secondary polycythemia Severe chronic obstructive pulmonary disease Sleep apnea Smoker Vitamin D deficiency Family History Family History Father CVD (cardiovascular disease) Diabetes Hypertension Mother Diabetes Hypertension CVD (cardiovascular disease) Brother Obese Pneumonia Heart attack Sister Seizures Son Bipolar disorder Family history: reviewed and not pertinent Surgical History Surgical History History of prostate surgery Recent surgical procedure on lower extremity Social History Social History Household Members: Children Housing: House Do you presently have visiting nurse or other home services: No Alcohol intake: current Alcohol intake frequency: holidays/special occasions only Patient Tobacco Use Status: Current everyday Tobacco user Tobacco use type: Cigarette Cigarette Packs Per Day: 1 Cigarettes Per Day: 20.0 e-Cigarette/Vaping Use: Never Used Second Hand Smoke Exposure: Yes service: No Current occupational status: disabled Gender identity: Male Cognitive needs: Yes (cane) Hearing needs: No Vision needs: Yes (reading glasses) Meds Allergies Allergy/AdvReac Type Severity Reaction Status Date / Time No Known Allergies Allergy Verified 12/09/21 12:22 Active Medications: Current Medications Acetaminophen (Acetaminophen 325 Mg Tablet) 650 mg PO Q6H PRN PRN Reason: Pain, Mild (Pain Scale 1-3) Last Admin: 12/05/22 10:55 Dose: 650 mg Albuterol/Ipratropium (Albuterol/Iprat 2.5/0.5mg 3 Ml Ampul.Neb) 3 ml INHALE RQ4H PRN PRN Reason: wheezing Last Admin: 08/08/22 02:14 Dose: 3 ml Aspirin (Aspirin Enteric Coated 81 Mg Tablet.Dr) 81 mg PO DAILY [facility] Last Admin: 08/08/22 12:16 Dose: 81 mg Atorvastatin Calcium (Atorvastatin Calcium 40 Mg Tablet) 40 mg PO DAILY [facility] Last Admin: 08/08/22 12:16 Dose: 40 mg Enoxaparin Sodium (Enoxaparin Sodium 40 Mg/0.4 Ml Syringe) 40 mg SUBCUT Q24H [facility] Last Admin: 08/07/22 22:08 Dose: 40 mg Fluconazole (Fluconazole 100 Mg Tablet) 100 mg PO DAILY [facility] Last Admin: 08/08/22 07:39 Dose: 100 mg Folic Acid (Folic Acid 1 Mg Tablet) 1 mg PO DAILY [facility] Last Admin: 08/08/22 14:36 Dose: 1 mg Furosemide (Furosemide 40 Mg Tablet) 40 mg PO DAILY [facility]; Protocol Last Admin: 08/08/22 12:16 Dose: 40 mg Gabapentin (Gabapentin 300 Mg Capsule) 300 mg PO TID [facility] Last Admin: 08/08/22 14:36 Dose: 300 mg Vancomycin HCl 1,000 mg/ (Sodium Chloride) 270 mls @ 270 mls/hr IV Q24H [facility] Ampicillin Sodium/Sulbactam (Sodium 3 gm/ Sodium Chloride) 100 mls @ 200 mls/hr IV Q6H [facility] Last Admin: 08/08/22 14:36 Dose: 200 mls/hr Dextrose (D5w) 1,000 mls @ 125 mls/hr IVCONT .Q8H [facility] Last Admin: 08/08/22 09:11 Dose: 125 mls/hr Lisinopril (Lisinopril 20 Mg Tablet) 20 mg PO DAILY [facility]; Protocol Last Admin: 08/08/22 12:16 Dose: 20 mg Melatonin (Melatonin 3 Mg Tablet) 6 mg PO BEDTIME PRN PRN Reason: Insomnia Metoprolol Succinate (Metoprolol Succinate Er 50 Mg Tab.Er.24h) 50 mg PO DAILY [facility]; Protocol Last Admin: 08/08/22 12:16 Dose: 50 mg Multivitamins/Vitamin C (Multivitamin Tablet) 1 tab PO DAILY [facility] Last Admin: 08/08/22 12:16 Dose: 1 tab Nicotine (Nicotine 14 Mg Patch.Td24) 14 mg TRANSDERMA DAILY [facility] Last Admin: 08/08/22 12:16 Dose: 14 mg Ondansetron HCl (Ondansetron Hcl 4 Mg/2 Ml Vial) 4 mg IVPUSH Q8H PRN PRN Reason: Nausea and Vomiting Pharmacy Consult (Consult Rx Vancomycin Dosing) 1 each MISCELLANE DAILY PRN PRN Reason: Consult order Sodium Chloride (0.9 % Sodium Chloride Flush 3 Ml Syringe) 3 ml IVFLUSH QSHIFT ON [facility] Last Admin: 08/08/22 07:40 Dose: 3 ml Vitamin D (Cholecalciferol (Vitamin D3) 25 Mcg Tablet) 50 mcg PO DAILY [facility] Last Admin: 08/08/22 12:15 Dose: 50 mcg Home Medications Medication Instructions Recorded Confirmed Last Taken Type aspirin 81 mg tablet,delayed 81 mg PO DAILY 07/01/20 08/08/22 08/07/22 History release ipratropium 0.5 mg-albuterol 3 mg 3 ml inhalation Q6H PRN Wheezing 08/08/22 08/08/22 Unknown History (2.5 mg base)/3 mL nebulization soln multivitamin 1 tab PO DAILY 08/08/22 08/08/22 08/07/22 History Physical Exam Vital Signs: Vital Signs: Last Vital Signs Temp 100.5 F H 08/08/22 07:38 Pulse 116 H 08/08/22 12:22 Resp 18 08/08/22 07:38 BP 140/65 H 08/08/22 12:22 Pulse Ox 95 08/08/22 07:38 O2 Del Method 08/08/22 07:38 O2 Flow Rate 2 08/08/22 07:38 Oxygen Flow Rate 3 08/07/22 16:36 BMI result Body Mass Index 43.9 Const: General: cooperative HEENT: Other: swelling face involving eye but can open eyes cartilage discomfort on touching Head: Yes normal to inspection Face and sinus: Yes normal facial exam Mouth: Normal oral and palatal mucosa present Teeth and gingiva: dentition normal Eyes: General: appearance normal, both eyes and all related structures Pupils: Equal, round and reactive pupils present Resp: Effort & Inspection: normal respiratory effort Cardio: Rate: regular rate Rhythm: regular rhythm GI: Palpation (GI): Soft to palpation and nontender : General: Yes no CVA tenderness Back/Spine/Pelvis: Back: no CVA tenderness Skin: General skin exam: no rashes or lesions noted Neuro: General: moves all extremities Cranial nerves: Yes Equal, round and reactive pupils present Extrem: General: Yes normal to inspection Psych: Appearance: grossly normal Results Labs CBC & Chem 7: 08/08/22 05:58 08/08/22 13:32 Labs: Short CBC 08/07/22 08/08/22 Range/Units 16:51 05:58 WBC 18.9 H 14.7 H (4.8-10.8) X10*3/uL Hgb 16.3 14.3 (14.0-18.0) g/dl Hct 49.9 45.0 (42.0-52.0) % Plt Count 141 L 129 L (160-400) X10*3/uL BMP 08/07/22 08/08/22 08/08/22 16:51 05:58 05:58 Sodium 125 L 138 Potassium 4.5 4.8 Chloride 90 L 101 Carbon Dioxide 28 30 H BUN 40 H 33 H Creatinine 2.14 H Cancelled 1.50 H Calcium 9.1 D 8.3 L D 08/08/22 08/08/22 09:40 13:32 Sodium 137 134 L Potassium Chloride Carbon Dioxide BUN Creatinine Calcium Cardiac Enzymes 08/07/22 Range/Units 16:51 Total Creatine Kinase 84 (38-174) U/L Liver Function 08/07/22 Range/Units 16:51 Total Bilirubin 1.4 H (0.0-1.0) mg/dL Direct Bilirubin 0.5 (0.0-0.5) mg/dL AST 14 (5-37) U/L ALT 9 (0-40) U/L Alkaline Phosphatase 78 (39-117) U/L Albumin 4.2 (3.5-5.0) g/dL Assessment and Plan (1) Cellulitis, face: Status: Acute This is probable staph or strep and may be MRSA. There are no signs of herpes zoster. Plan Continue Unasyn and Vancomycin for now. Change to po Doxycycline and Augmentin for 10 d when better.
[2022-08-08 16:27] VITALS: BP 127/60; PULSE 89; RESP 16; TEMP 36.6; O2SAT 95
[2022-08-08 18:47] LABS: Sodium 137 mmol/L (135-145)
[2022-08-08 19:42] VITALS: BP 118/59; PULSE 98; RESP 18; TEMP 37.4; O2SAT 90
[2022-08-08] MEDS: Enoxaparin Sodium 40 MG/0.4 ML SYRINGE SUBCUT (19:59)
[2022-08-08 22:10] LABS: Sodium 138 mmol/L (135-145)
[2022-08-08] MEDS: vancomycin HCL 1,000 MG in 0.9 % Sodium Chloride 250 ML 270 MG IV (22:30)
[2022-08-09] MEDS: Ampicillin Sodium/Sulbactam Na 3 GM in 0.9 % Sodium Chloride 100 ML IV ×2 (02:19→08:52)
[2022-08-09 03:12] LABS: Glucose, Whole Blood 114 mg/dL (60-115)
[2022-08-09] MEDS: Dextrose 5 % 1,000 ML 150 ML IVCONT (03:27)
[2022-08-09 04:00] VITALS: BP 128/58; PULSE 109; RESP 17; TEMP 37.3; O2SAT 92
[2022-08-09 04:08] LABS: Glucose, Whole Blood 123 mg/dL (60-115)
[2022-08-09 05:16] LABS: Glucose, Whole Blood 134 mg/dL (60-115)
[2022-08-09 06:13] LABS: Glucose, Whole Blood 139 mg/dL (60-115)
[2022-08-09 06:25] LABS: Hematocrit 44.8 % (42.0-52.0); Hemoglobin 14.1 g/dl (14.0-18.0); Mean Corpuscular HGB Conc 31.5 g/dl (31.0-36.0); Mean Corpuscular Hemoglobin 33.5 pg (27.0-33.0); Mean Corpuscular Volume 106.4 fL (80.0-98.0); Mean Platelet Volume 10.9 fL (9.4-12.4); Platelet Count 138 X10*3/uL (160-400); Red Blood Count 4.21 X10*6/uL (4.60-5.80); Red Cell Distribution Width 15.5 % (11.0-16.0); White Blood Count 11.7 X10*3/uL (4.8-10.8)
[2022-08-09 06:40] LABS: Anion Gap 13 (12-20); Blood Urea Nitrogen 25 mg/dL (9-16); Carbon Dioxide 32 mmol/L (22-29); Chloride 98 mmol/L (96-108); Creatinine Clr Calc Pharmacy 61.9; Estimated Glomerular Filt Rate 56; Glucose Random 129 mg/dL (60-115); Potassium 4.9 mmol/L (3.3-5.1); Sodium 138 mmol/L (135-145)
--- NOTE | 2022-08-09 07:04 | HE.PHANOTE ---
WILLIE GAN CONTINUE CURRENT DOSE. TROUGH DUE 08/09 @2100. CONSIDER INCREASING DOSE BASED ON LEVEL IN SETTING OF IMPROVING RENAL FUNCTION. WILL FOLLOW THIS EVENING JOSE MARIA
[2022-08-09 07:15] VITALS: BP 138/62; PULSE 102; RESP 20; TEMP 37; O2SAT 92
[2022-08-09 07:36] LABS: Glucose, Whole Blood 161 mg/dL (60-115)
[2022-08-09] MEDS: Cholecalciferol (Vitamin D3) 25 MCG TABLET 50 MCG PO (08:49)
[2022-08-09] MEDS: Nicotine 14 MG PATCH.TD24 TRANSDERMA (08:49)
[2022-08-09] MEDS: Furosemide 40 MG TABLET PO (08:50)
[2022-08-09] MEDS: Metoprolol Succinate ER 50 MG TAB.ER.24H PO (08:50)
[2022-08-09] MEDS: Folic Acid 1 MG TABLET PO (08:50)
[2022-08-09] MEDS: Atorvastatin Calcium 40 MG TABLET PO (08:50)
[2022-08-09] MEDS: Aspirin Enteric Coated 81 MG TABLET.DR PO (08:50)
[2022-08-09] MEDS: Multivitamin TABLET 1 TAB PO (08:50)
[2022-08-09] MEDS: Gabapentin 300 MG CAPSULE PO ×3 (08:50→21:58)
[2022-08-09] MEDS: Fluconazole 100 MG TABLET PO (09:57)
--- NOTE | 2022-08-09 10:54 | PM.PNNEP ---
Subjective Subjective Date of Service: 08/10/22 Interval history: L-sided facial swelling febrile to 100.5 this morning mandibular cyst has been present for years Physical Exam Vital Signs: Vital Signs: Last Vital Signs Temp 98.6 F 08/09/22 07:15 Pulse 102 H 08/09/22 07:15 Resp 20 08/09/22 07:15 BP 138/62 08/09/22 07:15 Pulse Ox 92 08/09/22 07:15 O2 Del Method 08/09/22 07:15 O2 Flow Rate 2 08/09/22 07:15 Oxygen Flow Rate 3 08/07/22 16:36 BMI result Body Mass Index 43.9 Const: General: cooperative HEENT: Other: swelling face involving eye but can open eyes cartilage discomfort on touching Resp: Effort & Inspection: normal respiratory effort Cardio: Rate: regular rate Rhythm: regular rhythm GI: Palpation (GI): Soft to palpation and nontender : General: Yes no CVA tenderness Back/Spine/Pelvis: Back: no CVA tenderness Skin: General skin exam: no rashes or lesions noted Neuro: General: moves all extremities Extrem: General: Yes normal to inspection Objective Data Labs CBC & Chem 7: 08/09/22 05:11 08/10/22 05:08 Labs: Laboratory Results - last 24 hr 08/08/22 08/08/22 08/08/22 02:00 09:40 09:40 WBC RBC Hgb Hct MCV MCH MCHC RDW Plt Count MPV Absolute Nucleated RBC Nucleated RBC % (auto) Sodium Potassium Chloride Carbon Dioxide Anion Gap BUN Creatinine Estim Creat Clear Calc Estimated GFR POC Glucose Random Glucose Calcium Vitamin B12 401 Folate 2.5 L Urine Creatinine 52.88 HIV 1&2 Ab/P24 Ag 4thGn Nonreactive 08/08/22 08/08/22 08/08/22 13:32 18:21 21:49 WBC RBC Hgb Hct MCV MCH MCHC RDW Plt Count MPV Absolute Nucleated RBC Nucleated RBC % (auto) Sodium 134 L 137 138 Potassium Chloride Carbon Dioxide Anion Gap BUN Creatinine Estim Creat Clear Calc Estimated GFR POC Glucose Random Glucose Calcium Vitamin B12 Folate Urine Creatinine HIV 1&2 Ab/P24 Ag 4thGn 08/09/22 08/09/22 08/09/22 03:07 04:01 05:11 WBC RBC Hgb Hct MCV MCH MCHC RDW Plt Count MPV Absolute Nucleated RBC Nucleated RBC % (auto) Sodium 138 Potassium 4.9 Chloride 98 Carbon Dioxide 32 H Anion Gap 13 BUN 25 H Creatinine 1.30 Estim Creat Clear Calc 61.9 Estimated GFR 56 POC Glucose 114 123 H Random Glucose 129 H Calcium 9.0 D Vitamin B12 Folate Urine Creatinine HIV 1&2 Ab/P24 Ag 4thGn 08/09/22 08/09/22 08/09/22 05:11 05:12 06:07 WBC 11.7 H RBC 4.21 L Hgb 14.1 Hct 44.8 MCV 106.4 H MCH 33.5 H MCHC 31.5 RDW 15.5 Plt Count 138 L MPV 10.9 Absolute Nucleated RBC 0.000 Nucleated RBC % (auto) 0.0 Sodium Potassium Chloride Carbon Dioxide Anion Gap BUN Creatinine Estim Creat Clear Calc Estimated GFR POC Glucose 134 H 139 H Random Glucose Calcium Vitamin B12 Folate Urine Creatinine HIV 1&2 Ab/P24 Ag 4thGn 08/09/22 07:19 WBC RBC Hgb Hct MCV MCH MCHC RDW Plt Count MPV Absolute Nucleated RBC Nucleated RBC % (auto) Sodium Potassium Chloride Carbon Dioxide Anion Gap BUN Creatinine Estim Creat Clear Calc Estimated GFR POC Glucose 161 H Random Glucose Calcium Vitamin B12 Folate Urine Creatinine HIV 1&2 Ab/P24 Ag 4thGn Microbiology Microbiology Results: Microbiology 08/07/22 16:52 Blood - Venous Blood Culture - Preliminary No growth after 24 hours. 08/07/22 16:51 Blood - Venous Blood Culture - Preliminary No growth after 24 hours. Procedures Date of Service Date of Service: 08/09/22 Assessment & Plan Assessment and plan (1) HAYLEY (acute kidney injury): Status: Acute Assessment and Plan: Due to hypoperfusion/ Possible ATN Cr is improving (2) Acute hyponatremia: Status: Acute Assessment and Plan: resolved Plan Keep I > O Restrict hypotonic/PO water intake Avoid nephrotoxins Watch Vanco levels Time Spent With Patient Time: Total time spent is greater than 50% in coordination of care (as documented) at patient's floor/unit and/or counseling patient: Progress Note: Quality Stroke Does the patient have a stroke diagnosis?: No
--- NOTE | 2022-08-09 12:58 | HO.PM.IMPN ---
Subjective Subjective Date of Service: 08/09/22 Interval History: not much improvement in facial/neck swelling; also c/o LUE pain/swelling no fever Review of Systems Review of Systems: Yes all other systems are reviewed and are negative Physical Exam Vital Signs: Vital Signs: Last Vital Signs Temp 98.6 F 08/09/22 07:15 Pulse 102 H 08/09/22 07:15 Resp 20 08/09/22 07:15 BP 138/62 08/09/22 07:15 Pulse Ox 92 08/09/22 07:15 O2 Del Method 08/09/22 07:15 O2 Flow Rate 2 08/09/22 07:15 Oxygen Flow Rate 3 08/07/22 16:36 BMI result Body Mass Index 43.9 Gen: in no acute distress HEENT: L-sided facial/neck swelling/erythema/induration.? palpable cyst L mandibular area Neck: as above Lungs: clear to auscultation bilaterally Heart: tachycardic, no murmurs Abd: soft, non-tender, non-distended Ext: LUE painful, limited ROM, swollen Skin: warm/well-perfused Neuro: alert and oriented x3, no focal findings Psych: appropriate affect Objective Data Active Medications Acetaminophen (Acetaminophen 325 Mg Tablet) 650 mg PO Q6H PRN PRN Reason: Pain, Mild (Pain Scale 1-3) Last Admin: 08/08/22 10:55 Dose: 650 mg Documented By: RORY Albuterol/Ipratropium (Albuterol/Iprat 2.5/0.5mg 3 Ml Ampul.Neb) 3 ml INHALE RQ4H PRN PRN Reason: wheezing Last Admin: 08/08/22 02:14 Dose: 3 ml Documented By: NEAL Aspirin (Aspirin Enteric Coated 81 Mg Tablet.) 81 mg PO DAILY [facility] Last Admin: 08/09/22 08:50 Dose: 81 mg Documented By: RORY Atorvastatin Calcium (Atorvastatin Calcium 40 Mg Tablet) 40 mg PO DAILY [facility] Last Admin: 08/09/22 08:50 Dose: 40 mg Documented By: RORY Dextrose (Dextrose 50 % 25 Gm/50 Ml Syringe) 25 gm IVPUSH Q15M PRN; Protocol PRN Reason: per Hypoglycemia Standing Ord. Enoxaparin Sodium (Enoxaparin Sodium 40 Mg/0.4 Ml Syringe) 40 mg SUBCUT Q24H [facility] Last Admin: 08/08/22 19:59 Dose: 40 mg Documented By: GRIFFIN Fluconazole (Fluconazole 100 Mg Tablet) 100 mg PO DAILY [facility] Last Admin: 08/09/22 09:57 Dose: 100 mg Documented By: RORY Folic Acid (Folic Acid 1 Mg Tablet) 1 mg PO DAILY [facility] Last Admin: 08/09/22 08:50 Dose: 1 mg Documented By: RORY Furosemide (Furosemide 40 Mg Tablet) 40 mg PO DAILY [facility]; Protocol Last Admin: 08/09/22 08:50 Dose: 40 mg Documented By: RORY Gabapentin (Gabapentin 300 Mg Capsule) 300 mg PO TID [facility] Last Admin: 08/09/22 08:50 Dose: 300 mg Documented By: RORY Glucose (Glucose Gel 15 Gm Gel..Gram.) 15 gm PO Q15M PRN; Protocol PRN Reason: per Hypoglycemia Standing Ord. Vancomycin HCl 1,000 mg/ (Sodium Chloride) 270 mls @ 270 mls/hr IV Q24H [facility] Last Infusion: 08/09/22 00:06 Dose: 0 mls/hr Documented By: GRIFFIN Ampicillin Sodium/Sulbactam (Sodium 3 gm/ Sodium Chloride) 100 mls @ 200 mls/hr IV Q6H [facility] Last Infusion: 08/09/22 09:54 Dose: 0 mls/hr Documented By: RORY Insulin Human Lispro (Insulin Lispro 100 Unit/Ml 3 Ml Vial) 0 unit SUBCUT Q6H [facility]; Protocol Last Admin: 08/09/22 08:40 Dose: Not Given Documented By: RORY Non-Admin Reason: No Insulin Coverage Melatonin (Melatonin 3 Mg Tablet) 6 mg PO BEDTIME PRN PRN Reason: Insomnia Metoprolol Succinate (Metoprolol Succinate Er 50 Mg Tab.Er.24h) 50 mg PO DAILY [facility]; Protocol Last Admin: 08/09/22 08:50 Dose: 50 mg Documented By: RORY Multivitamins/Vitamin C (Multivitamin Tablet) 1 tab PO DAILY [facility] Last Admin: 08/09/22 08:50 Dose: 1 tab Documented By: RORY Nicotine (Nicotine 14 Mg Patch.Td24) 14 mg TRANSDERMA DAILY [facility] Last Admin: 08/09/22 08:49 Dose: 14 mg Documented By: RORY Ondansetron HCl (Ondansetron Hcl 4 Mg/2 Ml Vial) 4 mg IVPUSH Q8H PRN PRN Reason: Nausea and Vomiting Pharmacy Consult (Consult Rx Vancomycin Dosing) 1 each MISCELLANE DAILY PRN PRN Reason: Consult order Sodium Chloride (0.9 % Sodium Chloride Flush 3 Ml Syringe) 3 ml IVFLUSH QSHIFT [facility] Last Admin: 08/08/22 22:35 Dose: 3 ml Documented By: GRIFFIN Vitamin D (Cholecalciferol (Vitamin D3) 25 Mcg Tablet) 50 mcg PO DAILY [facility] Last Admin: 08/09/22 08:49 Dose: 50 mcg Documented By: RORY Labs CBC & Chem 7: 08/09/22 05:11 08/09/22 05:11 Labs: Laboratory Results - last 24 hr 08/08/22 08/09/22 08/09/22 02:00 03:07 04:01 MCV MCH MCHC RDW Plt Count MPV Absolute Nucleated RBC Nucleated RBC % (auto) Anion Gap Estim Creat Clear Calc Estimated GFR POC Glucose 114 123 H Random Glucose Calcium Urine Creatinine 52.88 08/09/22 08/09/22 08/09/22 05:11 05:11 05:12 MCV 106.4 H MCH 33.5 H MCHC 31.5 RDW 15.5 Plt Count 138 L MPV 10.9 Absolute Nucleated RBC 0.000 Nucleated RBC % (auto) 0.0 Anion Gap 13 Estim Creat Clear Calc 61.9 Estimated GFR 56 POC Glucose 134 H Random Glucose 129 H Calcium 9.0 D Urine Creatinine 08/09/22 08/09/22 06:07 07:19 MCV MCH MCHC RDW Plt Count MPV Absolute Nucleated RBC Nucleated RBC % (auto) Anion Gap Estim Creat Clear Calc Estimated GFR POC Glucose 139 H 161 H Random Glucose Calcium Urine Creatinine Microbiology Microbiology Results: Microbiology 08/07/22 16:52 Blood Culture - Preliminary Blood - Venous No growth after 24 hours. 08/07/22 16:51 Blood Culture - Preliminary Blood - Venous No growth after 24 hours. Assessment and Plan (1) Sepsis: Status: Acute Plan d#3 62yo M with CKD3, chronic hypoxic respiratory failure on 2L O2 at night, HLD, and HTN presenting with L-sided facial swelling, admitted for sepsis # sepsis due to L-sided facial/neck cellulitis - vancomycin d#3, ampicillin-sulbactam d#2. follow BCx. ID following. repeat CT scan to r/o abscess given lack of improvement. also check LUE Doppler US. d/c'ed lisinopril # HAYLEY/CKD3 - prerenal; HAYLEY resolved with IV fluid resuscitation # hypoNa - resolved # lactic acidosis - resolved with fluid resuscitation # oral thrush - fluconazole d#3, A1c normal, HIV negative # folate deficiency - started folate replacement # CAD - continue ASA, statin # HTN - metoprolol and furosemide; lisinopril d/c'ed as above # morbid obesity - diet/exercise counseling # chronic hypoxic respiratory failure due to COPD - not in acute exacerbation, continue O2 2L at night # tobacco abuse - NRT # VTE ppx: LMWH # dispo: anticipate home eventually In my clinical judgment, the patient requires continued inpatient hospitalization for the following reasons: IV ABX Quality Stroke Does the patient have a stroke diagnosis?: No VTE Prior VTE?: No VTE Risk Level:: Medical - moderate - high VTE Device Contraindication: Treatment Not Indicated VTE Drug Contraindication: N/A - Med Ordered
[2022-08-09] MEDS: iohexoL 350 MG/ML 100 ML INFUS..BTL IV (15:07)
[2022-08-09 15:46] VITALS: BP 108/51; PULSE 120; RESP 20; TEMP 36.8; O2SAT 92
[2022-08-09] MEDS: Clindamycin Phosphate/D5W 900 MG/50 ML PIGGYBACK 50 MG IV (15:46)
[2022-08-09] MEDS: 0.9 % Sodium Chloride Flush 3 ML SYRINGE IVFLUSH (15:52)
[2022-08-09 19:57] VITALS: BP 142/67; PULSE 120; RESP 16; TEMP 36.9; O2SAT 90
[2022-08-09 21:22] LABS: Vancomycin Random 10.3 mcg/mL (15-20)
--- NOTE | 2022-08-09 21:44 | HE.PHANOTE ---
VANCOMYCIN DOSING ADJUSTMENT BASED ON SCR AND TROUGH OF 10.3. DOSE INCREASED TO 1250 Q 24H
[2022-08-09] MEDS: Enoxaparin Sodium 40 MG/0.4 ML SYRINGE SUBCUT (21:58)
[2022-08-09] MEDS: Acetaminophen 325 MG TABLET 650 MG PO (22:10)
[2022-08-09] MEDS: vancomycin HCL 1,250 MG in 0.9 % Sodium Chloride 250 ML 166.67 MG IV (22:14)
--- NOTE | 2022-08-09 23:40 | PC.NURSE ---
patient DTV 2300 and cannot. scanned for 192mL, md notified.
[2022-08-10] MEDS: Clindamycin Phosphate/D5W 900 MG/50 ML PIGGYBACK 50 MG IV ×3 (01:48→16:26)
--- NOTE | 2022-08-10 02:43 | PC.NURSE ---
noted scheduled ivabx behind due time as patients iv site positional and then new insertion, #20 left forearm to continue medications
[2022-08-10 03:52] VITALS: BP 106/56; PULSE 94; RESP 18; TEMP 37.1; O2SAT 97
[2022-08-10 05:49] LABS: Anion Gap 11 (12-20); Blood Urea Nitrogen 25 mg/dL (9-16); Carbon Dioxide 35 mmol/L (22-29); Chloride 98 mmol/L (96-108); Creatinine Clr Calc Pharmacy 62.4; Estimated Glomerular Filt Rate 56; Glucose Random 102 mg/dL (60-115); Potassium 4.9 mmol/L (3.3-5.1); Sodium 139 mmol/L (135-145)
[2022-08-10 08:00] VITALS: BP 143/65; PULSE 111; RESP 18; TEMP 36.8; O2SAT 92
--- NOTE | 2022-08-10 08:03 | HE.PHANOTE ---
Vancomycin Dosing Renal function stable, continue current regimen 1250 mg Q24h. Expected AUC 441. Next trough 08/11 @ 2100. Natividad WeinbergD
[2022-08-10] MEDS: Lidocaine 4 % Patch ADH..PATCH 1 PATCH TRANSDERMA (08:39)
[2022-08-10] MEDS: Nicotine 14 MG PATCH.TD24 TRANSDERMA (08:39)
[2022-08-10] MEDS: Aspirin Enteric Coated 81 MG TABLET.DR PO (08:40)
[2022-08-10] MEDS: Multivitamin TABLET 1 TAB PO (08:40)
[2022-08-10] MEDS: Gabapentin 300 MG CAPSULE PO ×3 (08:40→21:36)
[2022-08-10] MEDS: Atorvastatin Calcium 40 MG TABLET PO (08:40)
[2022-08-10] MEDS: Furosemide 40 MG TABLET PO (08:40)
[2022-08-10] MEDS: Folic Acid 1 MG TABLET PO (08:40)
[2022-08-10] MEDS: Cholecalciferol (Vitamin D3) 25 MCG TABLET 50 MCG PO (08:40)
[2022-08-10] MEDS: Metoprolol Succinate ER 50 MG TAB.ER.24H PO (08:40)
[2022-08-10] MEDS: 0.9 % Sodium Chloride Flush 3 ML SYRINGE IVFLUSH ×2 (08:41→16:17)
[2022-08-10] MEDS: Fluconazole 100 MG TABLET PO (08:52)
[2022-08-10] MEDS: Acetaminophen 325 MG TABLET 650 MG PO (08:52)
--- NOTE | 2022-08-10 10:02 | P.PNIM_ITS ---
Subjective Subjective Date of Service: 08/10/22 Interval History: no fever left facial swelling/redness improving Review of Systems Review of Systems: Yes all other systems are reviewed and are negative Physical Exam Vital Signs: Vital Signs: Last Vital Signs Temp 98.3 F 08/10/22 08:00 Pulse 111 H 08/10/22 08:00 Resp 18 08/10/22 08:00 BP 143/65 H 08/10/22 08:00 Pulse Ox 92 08/10/22 08:00 O2 Del Method 08/10/22 08:00 O2 Flow Rate 5 08/10/22 08:00 Oxygen Flow Rate 3 08/07/22 16:36 BMI result Body Mass Index 43.9 Gen: in no acute distress HEENT: L-sided facial/neck swelling/erythema/induration improved from yesterday; palpable cyst L mandibular area Neck: as above Lungs: clear to auscultation bilaterally Heart: tachycardic, no murmurs Abd: soft, non-tender, non-distended Ext: LUE painful, limited ROM Skin: warm/well-perfused Neuro: alert and oriented x3, no focal findings Psych: appropriate affect Objective Data Active Medications Acetaminophen (Acetaminophen 325 Mg Tablet) 650 mg PO Q6H PRN PRN Reason: Pain, Mild (Pain Scale 1-3) Last Admin: 08/10/22 08:52 Dose: 650 mg Documented By: BEN Albuterol/Ipratropium (Albuterol/Iprat 2.5/0.5mg 3 Ml Ampul.Neb) 3 ml INHALE RQ4H PRN PRN Reason: wheezing Last Admin: 08/08/22 02:14 Dose: 3 ml Documented By: NEAL Aspirin (Aspirin Enteric Coated 81 Mg Tablet.) 81 mg PO DAILY [facility] Last Admin: 08/10/22 08:40 Dose: 81 mg Documented By: BEN Atorvastatin Calcium (Atorvastatin Calcium 40 Mg Tablet) 40 mg PO DAILY [facility] Last Admin: 08/10/22 08:40 Dose: 40 mg Documented By: BEN Enoxaparin Sodium (Enoxaparin Sodium 40 Mg/0.4 Ml Syringe) 40 mg SUBCUT Q24H [facility] Last Admin: 08/09/22 21:58 Dose: 40 mg Documented By: EDY Fluconazole (Fluconazole 100 Mg Tablet) 100 mg PO DAILY [facility] Last Admin: 08/10/22 08:52 Dose: 100 mg Documented By: BEN Folic Acid (Folic Acid 1 Mg Tablet) 1 mg PO DAILY [facility] Last Admin: 08/10/22 08:40 Dose: 1 mg Documented By: BEN Furosemide (Furosemide 40 Mg Tablet) 40 mg PO DAILY [facility]; Protocol Last Admin: 08/10/22 08:40 Dose: 40 mg Documented By: BEN Gabapentin (Gabapentin 300 Mg Capsule) 300 mg PO TID [facility] Last Admin: 08/10/22 08:40 Dose: 300 mg Documented By: BEN Clindamycin Phosphate (Cleocin) 900 mg in 50 mls @ 50 mls/hr IV Q8H [facility] Last Infusion: 08/10/22 09:44 Dose: 0 mls/hr Documented By: BEN Vancomycin HCl 1,250 mg/ (Sodium Chloride) 250 mls @ 166.667 mls/hr IV Q24H [facility] Last Infusion: 08/10/22 00:35 Dose: 0 mls/hr Documented By: WILEY Lidocaine (Lidocaine 4 % Patch Adh..Patch) 1 patch TRANSDERMA DAILY [facility]; Protocol Last Admin: 08/10/22 08:39 Dose: 1 patch Documented By: BEN Melatonin (Melatonin 3 Mg Tablet) 6 mg PO BEDTIME PRN PRN Reason: Insomnia Metoprolol Succinate (Metoprolol Succinate Er 50 Mg Tab.Er.24h) 50 mg PO DAILY [facility]; Protocol Last Admin: 08/10/22 08:40 Dose: 50 mg Documented By: BEN Multivitamins/Vitamin C (Multivitamin Tablet) 1 tab PO DAILY [facility] Last Admin: 08/10/22 08:40 Dose: 1 tab Documented By: BEN Nicotine (Nicotine 14 Mg Patch.Td24) 14 mg TRANSDERMA DAILY [facility] Last Admin: 08/10/22 08:39 Dose: 14 mg Documented By: BEN Ondansetron HCl (Ondansetron Hcl 4 Mg/2 Ml Vial) 4 mg IVPUSH Q8H PRN PRN Reason: Nausea and Vomiting Pharmacy Consult (Consult Rx Vancomycin Dosing) 1 each MISCELLANE DAILY PRN PRN Reason: Consult order Sodium Chloride (0.9 % Sodium Chloride Flush 3 Ml Syringe) 3 ml IVFLUSH QSHIFT [facility] Last Admin: 08/10/22 08:41 Dose: 3 ml Documented By: BEN Vitamin D (Cholecalciferol (Vitamin D3) 25 Mcg Tablet) 50 mcg PO DAILY [facility] Last Admin: 08/10/22 08:40 Dose: 50 mcg Documented By: BEN Labs CBC & Chem 7: 08/09/22 05:11 08/10/22 05:08 Labs: Laboratory Results - last 24 hr 08/09/22 08/10/22 20:50 05:08 Anion Gap 11 L Estim Creat Clear Calc 62.4 Estimated GFR 56 Random Glucose 102 Calcium 9.0 C-Reactive Protein 11.00 H Random Vancomycin 10.3 L Impressions Shoulder X-Ray 08/09/22 14:37 IMPRESSION: Arthritis at the acromioclavicular joint. Face CT 08/09/22 15:08 IMPRESSION: No new soft tissue fluid collection. Stable periorbital soft tissue swelling and anterior frontal scalp soft tissue thickening. Additional stable mild left facial cellulitic changes of indeterminate etiology. Presumed reactive thickening of the platysma muscle, as on prior imaging. No new cervical adenopathy. Interlobular septal thickening in the lungs with scattered subsegmental atelectatic changes superimposed upon emphysema. Pulmonary arterial dilatation can be seen in the setting of chronic pulmonary artery hypertension; clinically correlate. Soft Tissue Neck CT 08/09/22 15:08 IMPRESSION: No new soft tissue fluid collection. Stable periorbital soft tissue swelling and anterior frontal scalp soft tissue thickening. Additional stable mild left facial cellulitic changes of indeterminate etiology. Presumed reactive thickening of the platysma muscle, as on prior imaging. No new cervical adenopathy. Interlobular septal thickening in the lungs with scattered subsegmental atelectatic changes superimposed upon emphysema. Pulmonary arterial dilatation can be seen in the setting of chronic pulmonary artery hypertension; clinically correlate. Venous Duplex 08/09/22 21:08 IMPRESSION: No DVT demonstrated in the left upper extremity. Microbiology Microbiology Results: Microbiology 08/07/22 16:52 Blood Culture - Preliminary Blood - Venous No growth after 48 hours. 08/07/22 16:51 Blood Culture - Preliminary Blood - Venous No growth after 48 hours. Assessment and Plan (1) Sepsis: Status: Acute Plan d#4 62yo M with CKD3, chronic hypoxic respiratory failure on 2L O2 at night, HLD, and HTN presenting with L-sided facial swelling, admitted for sepsis # sepsis due to L-sided facial/neck cellulitis - vancomycin d#4, ampicillin-sulbactam d#3. BCx negative. WBCs + CRP improving. ID following. no abscess on repeat scan. d/c'ed lisinopril # HAYLEY/CKD3 - prerenal; HAYLEY resolved with IV fluid resuscitation # hypoNa - resolved # lactic acidosis - resolved with fluid resuscitation # oral thrush - fluconazole d#4, A1c normal, HIV negative # folate deficiency - started folate replacement # CAD - continue ASA, statin # HTN - metoprolol and furosemide; lisinopril d/c'ed as above # morbid obesity - diet/exercise counseling # chronic hypoxic respiratory failure due to COPD - not in acute exacerbation, continue O2 2L at night # tobacco abuse - NRT # VTE ppx: LMWH # dispo: anticipate home eventually In my clinical judgment, the patient requires continued inpatient hospitalization for the following reasons: IV ABX Quality Stroke Does the patient have a stroke diagnosis?: No VTE Prior VTE?: No VTE Risk Level:: Medical - moderate - high VTE Device Contraindication: Treatment Not Indicated VTE Drug Contraindication: N/A - Med Ordered
--- NOTE | 2022-08-10 10:47 | PM.PNNEP ---
Subjective Subjective Date of Service: 08/11/22 Interval history: no fever left facial swelling/redness improving Physical Exam Vital Signs: Vital Signs: Last Vital Signs Temp 98.3 F 08/10/22 08:00 Pulse 111 H 08/10/22 08:00 Resp 18 08/10/22 08:00 BP 143/65 H 08/10/22 08:00 Pulse Ox 92 08/10/22 08:00 O2 Del Method 08/10/22 08:00 O2 Flow Rate 5 08/10/22 08:00 Oxygen Flow Rate 3 08/07/22 16:36 BMI result Body Mass Index 43.9 Const: General: cooperative HEENT: Other: swelling face involving eye but can open eyes cartilage discomfort on touching Resp: Effort & Inspection: normal respiratory effort Cardio: Rate: regular rate Rhythm: regular rhythm GI: Palpation (GI): Soft to palpation and nontender : General: Yes no CVA tenderness Back/Spine/Pelvis: Back: no CVA tenderness Skin: General skin exam: no rashes or lesions noted Neuro: General: moves all extremities Extrem: General: Yes normal to inspection Objective Data Labs CBC & Chem 7: 08/09/22 05:11 08/11/22 05:17 Labs: Laboratory Results - last 24 hr 08/09/22 08/10/22 20:50 05:08 Sodium 139 Potassium 4.9 Chloride 98 Carbon Dioxide 35 H Anion Gap 11 L BUN 25 H Creatinine 1.29 Estim Creat Clear Calc 62.4 Estimated GFR 56 Random Glucose 102 Calcium 9.0 C-Reactive Protein 11.00 H Random Vancomycin 10.3 L Microbiology Microbiology Results: Microbiology 08/07/22 16:52 Blood - Venous Blood Culture - Preliminary No growth after 48 hours. 08/07/22 16:51 Blood - Venous Blood Culture - Preliminary No growth after 48 hours. Procedures Date of Service Date of Service: 08/10/22 Assessment & Plan Assessment and plan (1) HAYLEY (acute kidney injury): Status: Acute Assessment and Plan: Due to hypoperfusion/ Possible ATN Cr is improving (2) Acute hyponatremia: Status: Acute Assessment and Plan: resolved Plan Keep I > O Restrict hypotonic/PO water intake Avoid nephrotoxins Watch Vanco levels Time Spent With Patient Time: Total time spent is greater than 50% in coordination of care (as documented) at patient's floor/unit and/or counseling patient: Progress Note: Quality Stroke Does the patient have a stroke diagnosis?: No
[2022-08-10 14:10] VITALS: O2SAT 92
--- NOTE | 2022-08-10 15:11 | MHC.CM.PN ---
PER HOSPITALIST ANTIC 1-2 MORE DAYS IV ABX AND D/C MONDAY, CM WILL CONT TO FOLLOW D/C NEEDS.
[2022-08-10 15:49] VITALS: BP 140/78; PULSE 124; RESP 20; TEMP 37.8; O2SAT 91
--- NOTE | 2022-08-10 16:02 | PC.NURSE ---
Addendum entered by Kathy Kelly RN 08/10/22 17:42: after duoneb treatment pt reports that he feels better. o2 sat at 91. Original Note: Pts oxygen sat high 70s to low 80s on 2L NC. Oxygen bumped up to 3 1/2 liters on NC and pts o2 sat up to 91. Dr Boyce made aware. RT contacted and pt given PRN duoneb treatment.
[2022-08-10 16:05] VITALS: PULSE 115; RESP 18; O2SAT 90
[2022-08-10] MEDS: Albuterol/Iprat 2.5/0.5MG 3 ML AMPUL.NEB INHALE (16:05)
[2022-08-10 20:00] VITALS: BP 126/79; PULSE 104; RESP 17; TEMP 36.7; O2SAT 91
[2022-08-10] MEDS: Enoxaparin Sodium 40 MG/0.4 ML SYRINGE SUBCUT (21:36)
[2022-08-11] VITALS (7 sets, daily range): BP systolic 115–146; BP diastolic 62–73; PULSE 85–113; RESP 17–20; TEMP 36.4–37.3; O2SAT 90–93
[2022-08-11] MEDS: vancomycin HCL 1,250 MG in 0.9 % Sodium Chloride 250 ML 166.67 MG IV ×2 (00:08→22:35)
[2022-08-11] MEDS: 0.9 % Sodium Chloride Flush 3 ML SYRINGE IVFLUSH ×4 (00:08→20:47)
[2022-08-11] MEDS: Clindamycin Phosphate/D5W 900 MG/50 ML PIGGYBACK 50 MG IV ×3 (01:04→16:07)
[2022-08-11] MEDS: Albuterol/Iprat 2.5/0.5MG 3 ML AMPUL.NEB INHALE ×3 (05:45→15:24)
[2022-08-11 06:09] LABS: Creatinine Clr Calc Pharmacy 57.9; Estimated Glomerular Filt Rate 51
[2022-08-11] MEDS: Lidocaine 4 % Patch ADH..PATCH 1 PATCH TRANSDERMA (09:01)
[2022-08-11] MEDS: methylPREDNISolone Sod Succ 125 MG/2 ML VIAL IVPUSH (09:01)
[2022-08-11] MEDS: Atorvastatin Calcium 40 MG TABLET PO (09:02)
[2022-08-11] MEDS: Cholecalciferol (Vitamin D3) 25 MCG TABLET 50 MCG PO (09:02)
[2022-08-11] MEDS: Folic Acid 1 MG TABLET PO (09:02)
[2022-08-11] MEDS: Metoprolol Succinate ER 50 MG TAB.ER.24H PO (09:02)
[2022-08-11] MEDS: Multivitamin TABLET 1 TAB PO (09:02)
[2022-08-11] MEDS: Gabapentin 300 MG CAPSULE PO ×3 (09:02→20:46)
[2022-08-11] MEDS: Fluconazole 100 MG TABLET PO (09:02)
[2022-08-11] MEDS: Furosemide 40 MG TABLET PO (09:02)
[2022-08-11] MEDS: Nicotine 14 MG PATCH.TD24 TRANSDERMA (09:03)
[2022-08-11] MEDS: Aspirin Enteric Coated 81 MG TABLET.DR PO (09:03)
[2022-08-11] MEDS: Acetaminophen 325 MG TABLET 650 MG PO ×2 (09:16→16:14)
--- NOTE | 2022-08-11 10:49 | PM.PNNEP ---
Subjective Subjective Date of Service: 08/11/22 Interval history: Events noted Feels better Facial swelling improved Physical Exam Vital Signs: Vital Signs: Last Vital Signs Temp 99.1 F 08/11/22 07:25 Pulse 105 H 08/11/22 07:25 Resp 20 08/11/22 07:25 BP 139/62 08/11/22 07:25 Pulse Ox 90 L 08/11/22 07:25 O2 Del Method 08/11/22 07:25 O2 Flow Rate 4 08/11/22 07:25 Oxygen Flow Rate 3 08/07/22 16:36 BMI result Body Mass Index 43.9 Const: General: cooperative HEENT: Other: swelling face involving eye but can open eyes cartilage discomfort on touching Resp: Effort & Inspection: normal respiratory effort Cardio: Rate: regular rate Rhythm: regular rhythm GI: Palpation (GI): Soft to palpation and nontender : General: Yes no CVA tenderness Back/Spine/Pelvis: Back: no CVA tenderness Skin: General skin exam: no rashes or lesions noted Neuro: General: moves all extremities Extrem: General: Yes normal to inspection Objective Data Labs CBC & Chem 7: 08/09/22 05:11 08/11/22 05:17 Labs: Laboratory Results - last 24 hr 08/11/22 05:17 Creatinine 1.39 Estim Creat Clear Calc 57.9 Estimated GFR 51 Microbiology Microbiology Results: Microbiology 08/07/22 16:52 Blood - Venous Blood Culture - Preliminary No growth after 48 hours. 08/07/22 16:51 Blood - Venous Blood Culture - Preliminary No growth after 48 hours. Procedures Date of Service Date of Service: 08/11/22 Assessment & Plan Assessment and plan (1) HAYLEY (acute kidney injury): Status: Acute Assessment and Plan: Due to hypoperfusion/ Possible ATN Cr is improving (2) Acute hyponatremia: Status: Acute Assessment and Plan: resolved Plan Keep I > O No need for IVF Restrict hypotonic/PO water intake Avoid nephrotoxins Watch Vanco levels Time Spent With Patient Time: Total time spent is greater than 50% in coordination of care (as documented) at patient's floor/unit and/or counseling patient: Progress Note: Quality Stroke Does the patient have a stroke diagnosis?: No
--- NOTE | 2022-08-11 15:30 | HO.PM.IMPN ---
Subjective Subjective Date of Service: 08/11/22 Interval History: facial swelling/redness improving considerably however, he is dyspneic and hypoxic and wheezing Review of Systems Review of Systems: Yes all other systems are reviewed and are negative Physical Exam Vital Signs: Vital Signs: Last Vital Signs Temp 97.8 F 08/11/22 15:18 Pulse 100 08/11/22 15:25 Resp 18 08/11/22 15:25 BP 146/65 H 08/11/22 15:18 Pulse Ox 92 08/11/22 15:18 O2 Del Method 08/11/22 15:18 O2 Flow Rate 3.5 08/11/22 15:18 Oxygen Flow Rate 3 08/07/22 16:36 BMI result Body Mass Index 43.9 Gen: in no acute distress HEENT: L-sided facial/neck swelling/erythema/induration further improved from yesterday; palpable cyst L mandibular area Neck: as above Lungs: expiratory wheezing bilaterally Heart: tachycardic, no murmurs Abd: soft, non-tender, non-distended Ext: LUE painful, limited ROM Skin: warm/well-perfused Neuro: alert and oriented x3, no focal findings Psych: appropriate affect Objective Data Active Medications Acetaminophen (Acetaminophen 325 Mg Tablet) 650 mg PO Q6H PRN PRN Reason: Pain, Mild (Pain Scale 1-3) Last Admin: 08/11/22 09:16 Dose: 650 mg Documented By: BEN Albuterol Sulfate (Albuterol Sulfate (0.083%) 2.5 Mg/3 Ml Vial.Neb) 2.5 mg INHALE Q2H PRN PRN Reason: Shortness of Breath/Wheezing Albuterol/Ipratropium (Albuterol/Iprat 2.5/0.5mg 3 Ml Ampul.Neb) 3 ml INHALE RQ4H WHILE AWAKE [facility] Last Admin: 08/11/22 15:24 Dose: 3 ml Documented By: DARWIN Aspirin (Aspirin Enteric Coated 81 Mg Tablet.) 81 mg PO DAILY [facility] Last Admin: 08/11/22 09:03 Dose: 81 mg Documented By: BEN Atorvastatin Calcium (Atorvastatin Calcium 40 Mg Tablet) 40 mg PO DAILY [facility] Last Admin: 08/11/22 09:02 Dose: 40 mg Documented By: BEN Enoxaparin Sodium (Enoxaparin Sodium 40 Mg/0.4 Ml Syringe) 40 mg SUBCUT Q24H [facility] Last Admin: 08/10/22 21:36 Dose: 40 mg Documented By: BRIANA Fluconazole (Fluconazole 100 Mg Tablet) 100 mg PO DAILY [facility] Last Admin: 08/11/22 09:02 Dose: 100 mg Documented By: BEN Folic Acid (Folic Acid 1 Mg Tablet) 1 mg PO DAILY [facility] Last Admin: 08/11/22 09:02 Dose: 1 mg Documented By: BEN Furosemide (Furosemide 40 Mg Tablet) 40 mg PO DAILY [facility]; Protocol Last Admin: 08/11/22 09:02 Dose: 40 mg Documented By: BEN Gabapentin (Gabapentin 300 Mg Capsule) 300 mg PO TID [facility] Last Admin: 08/11/22 09:02 Dose: 300 mg Documented By: BEN Clindamycin Phosphate (Cleocin) 900 mg in 50 mls @ 50 mls/hr IV Q8H [facility] Last Infusion: 08/11/22 10:42 Dose: 0 mls/hr Documented By: BEN Vancomycin HCl 1,250 mg/ (Sodium Chloride) 250 mls @ 166.667 mls/hr IV Q24H [facility] Last Infusion: 08/11/22 02:00 Dose: 0 mls/hr Documented By: BRIANA Lidocaine (Lidocaine 4 % Patch Adh..Patch) 1 patch TRANSDERMA DAILY [facility]; Protocol Last Admin: 08/11/22 09:01 Dose: 1 patch Documented By: BEN Melatonin (Melatonin 3 Mg Tablet) 6 mg PO BEDTIME PRN PRN Reason: Insomnia Methylprednisolone Sodium Succinate (Methylprednisolone Sod Succ 40 Mg/Ml Vial) 40 mg IVPUSH Q12H [facility] Metoprolol Succinate (Metoprolol Succinate Er 50 Mg Tab.Er.24h) 50 mg PO DAILY [facility]; Protocol Last Admin: 08/11/22 09:02 Dose: 50 mg Documented By: BEN Multivitamins/Vitamin C (Multivitamin Tablet) 1 tab PO DAILY [facility] Last Admin: 08/11/22 09:02 Dose: 1 tab Documented By: BEN Nicotine (Nicotine 14 Mg Patch.Td24) 14 mg TRANSDERMA DAILY [facility] Last Admin: 08/11/22 09:03 Dose: 14 mg Documented By: BEN Ondansetron HCl (Ondansetron Hcl 4 Mg/2 Ml Vial) 4 mg IVPUSH Q8H PRN PRN Reason: Nausea and Vomiting Pharmacy Consult (Consult Rx Vancomycin Dosing) 1 each MISCELLANE DAILY PRN PRN Reason: Consult order Sodium Chloride (0.9 % Sodium Chloride Flush 3 Ml Syringe) 3 ml IVFLUSH QSHIFT [facility] Last Admin: 08/11/22 09:03 Dose: 3 ml Documented By: BEN Vitamin D (Cholecalciferol (Vitamin D3) 25 Mcg Tablet) 50 mcg PO DAILY [facility] Last Admin: 08/11/22 09:02 Dose: 50 mcg Documented By: BEN Labs CBC & Chem 7: 08/09/22 05:11 08/11/22 05:17 Labs: Laboratory Results - last 24 hr 08/11/22 05:17 Estim Creat Clear Calc 57.9 Estimated GFR 51 Assessment and Plan (1) Sepsis: Status: Acute Plan d#5 62yo M with CKD3, chronic hypoxic respiratory failure on 2L O2 at night, HLD, and HTN presenting with L-sided facial swelling, admitted for sepsis # acute on chronic hypoxic respiratory failure due to COPD, acute exacerbation - wean O2 as tolerated, give IV methlyprednisolone and nebulzied bronchodilators # sepsis due to L-sided facial/neck cellulitis - vancomycin d#5, ampicillin-sulbactam d#4. BCx negative. WBCs + CRP improving. ID following. no abscess on repeat scan. d/c'ed lisinopril # HAYLEY/CKD3 - prerenal; HAYLEY resolved with IV fluid resuscitation # hypoNa - resolved # lactic acidosis - resolved with fluid resuscitation # oral thrush - fluconazole d#5, A1c normal, HIV negative # folate deficiency - started folate replacement # CAD - continue ASA, statin # HTN - metoprolol and furosemide; lisinopril d/c'ed as above # morbid obesity - diet/exercise counseling # tobacco abuse - NRT # VTE ppx: LMWH # dispo: anticipate home eventually In my clinical judgment, the patient requires continued inpatient hospitalization for the following reasons: IV ABX, hypoxia Quality Stroke Does the patient have a stroke diagnosis?: No VTE Prior VTE?: No VTE Risk Level:: Medical - moderate - high VTE Device Contraindication: Treatment Not Indicated VTE Drug Contraindication: N/A - Med Ordered
[2022-08-11] MEDS: methylPREDNISolone Sod Succ 40 MG/ML VIAL IVPUSH (20:46)
[2022-08-11] MEDS: Enoxaparin Sodium 40 MG/0.4 ML SYRINGE SUBCUT (20:47)
[2022-08-11 22:00] LABS: Vancomycin Trough 14.5 mcg/mL (10.0-20.0)
[2022-08-12] VITALS (9 sets, daily range): BP systolic 98–141; BP diastolic 51–64; PULSE 77–114; RESP 18–24; TEMP 36.1–36.7; O2SAT 86–99
[2022-08-12] MEDS: Clindamycin Phosphate/D5W 900 MG/50 ML PIGGYBACK 50 MG IV ×3 (00:28→15:48)
[2022-08-12 05:58] LABS: Hematocrit 40.6 % (42.0-52.0); Mean Corpuscular Hemoglobin 33.2 pg (27.0-33.0); Mean Corpuscular Volume 103.8 fL (80.0-98.0); Mean Platelet Volume 10.2 fL (9.4-12.4); Platelet Count 192 X10*3/uL (160-400); Red Blood Count 3.91 X10*6/uL (4.60-5.80); Red Cell Distribution Width 14.8 % (11.0-16.0)
[2022-08-12 06:28] LABS: Anion Gap 12 (12-20); Blood Urea Nitrogen 32 mg/dL (9-16); C Reactive Protein 6.03 mg/dL (< or = 0.50); Calcium 9.4 mg/dL (8.4-10.2); Carbon Dioxide 35 mmol/L (22-29); Chloride 95 mmol/L (96-108); Creatinine Clr Calc Pharmacy 57.1; Estimated Glomerular Filt Rate 51; Glucose Random 145 mg/dL (60-115); Potassium 5.4 mmol/L (3.3-5.1); Sodium 137 mmol/L (135-145)
[2022-08-12] MEDS: Albuterol/Iprat 2.5/0.5MG 3 ML AMPUL.NEB INHALE ×3 (07:50→14:56)
--- NOTE | 2022-08-12 09:04 | HE.PHANOTE ---
RE: chelsea Changed dose to 1000mg Q24H with predicted AUC 482mg/L; trough in for 08/13/22 @2100
[2022-08-12] MEDS: Metoprolol Succinate ER 50 MG TAB.ER.24H PO (09:05)
[2022-08-12] MEDS: Aspirin Enteric Coated 81 MG TABLET.DR PO (09:05)
[2022-08-12] MEDS: Lidocaine 4 % Patch ADH..PATCH 1 PATCH TRANSDERMA (09:05)
[2022-08-12] MEDS: Multivitamin TABLET 1 TAB PO (09:05)
[2022-08-12] MEDS: Cholecalciferol (Vitamin D3) 25 MCG TABLET 50 MCG PO (09:05)
[2022-08-12] MEDS: Sodium Zirconium Cyclosilicate 10 GM POWD.PACK PO (09:05)
[2022-08-12] MEDS: Fluconazole 100 MG TABLET PO (09:06)
[2022-08-12] MEDS: Nicotine 14 MG PATCH.TD24 TRANSDERMA (09:06)
[2022-08-12] MEDS: Folic Acid 1 MG TABLET PO (09:06)
[2022-08-12] MEDS: Furosemide 40 MG TABLET PO (09:06)
[2022-08-12] MEDS: Acetaminophen 325 MG TABLET 650 MG PO (09:06)
[2022-08-12] MEDS: 0.9 % Sodium Chloride Flush 3 ML SYRINGE IVFLUSH ×3 (09:06→20:50)
[2022-08-12] MEDS: Gabapentin 300 MG CAPSULE PO ×3 (09:06→20:50)
[2022-08-12] MEDS: Atorvastatin Calcium 40 MG TABLET PO (09:06)
--- NOTE | 2022-08-12 10:33 | HO.PM.IMPN ---
Subjective Subjective Date of Service: 08/12/22 Interval History: facial swelling continues to improve no fever breathing improved Review of Systems Review of Systems: Yes all other systems are reviewed and are negative Physical Exam Vital Signs: Vital Signs: Last Vital Signs Temp 96.9 F 08/12/22 08:00 Pulse 91 08/12/22 08:00 Resp 24 H 08/12/22 08:00 BP 141/64 H 08/12/22 08:00 Pulse Ox 99 08/12/22 08:00 O2 Del Method 08/12/22 08:00 O2 Flow Rate 3.5 08/12/22 08:00 Oxygen Flow Rate 3 08/07/22 16:36 BMI result Body Mass Index 43.9 Gen: in no acute distress HEENT: L-sided facial/neck swelling/erythema/induration further improved; palpable cyst L mandibular area without fluctuance Neck: as above Lungs: soft exp wheezing Heart: tachycardic, no murmurs Abd: soft, non-tender, non-distended Ext: LUE painful, limited ROM Skin: warm/well-perfused Neuro: alert and oriented x3, no focal findings Psych: appropriate affect Objective Data Active Medications Acetaminophen (Acetaminophen 325 Mg Tablet) 650 mg PO Q6H PRN PRN Reason: Pain, Mild (Pain Scale 1-3) Last Admin: 08/12/22 09:06 Dose: 650 mg Documented By: BEN Albuterol Sulfate (Albuterol Sulfate (0.083%) 2.5 Mg/3 Ml Vial.Neb) 2.5 mg INHALE Q2H PRN PRN Reason: Shortness of Breath/Wheezing Albuterol/Ipratropium (Albuterol/Iprat 2.5/0.5mg 3 Ml Ampul.Neb) 3 ml INHALE RQ4H WHILE AWAKE [facility] Last Admin: 08/12/22 07:50 Dose: 3 ml Documented By: AYSHA Aspirin (Aspirin Enteric Coated 81 Mg Tablet.) 81 mg PO DAILY [facility] Last Admin: 08/12/22 09:05 Dose: 81 mg Documented By: BEN Atorvastatin Calcium (Atorvastatin Calcium 40 Mg Tablet) 40 mg PO DAILY [facility] Last Admin: 08/12/22 09:06 Dose: 40 mg Documented By: BEN Enoxaparin Sodium (Enoxaparin Sodium 40 Mg/0.4 Ml Syringe) 40 mg SUBCUT Q24H [facility] Last Admin: 08/11/22 20:47 Dose: 40 mg Documented By: BRIANA Fluconazole (Fluconazole 100 Mg Tablet) 100 mg PO DAILY [facility] Last Admin: 08/12/22 09:06 Dose: 100 mg Documented By: BEN Folic Acid (Folic Acid 1 Mg Tablet) 1 mg PO DAILY [facility] Last Admin: 08/12/22 09:06 Dose: 1 mg Documented By: BEN Furosemide (Furosemide 40 Mg Tablet) 40 mg PO DAILY [facility]; Protocol Last Admin: 08/12/22 09:06 Dose: 40 mg Documented By: BEN Gabapentin (Gabapentin 300 Mg Capsule) 300 mg PO TID [facility] Last Admin: 08/12/22 09:06 Dose: 300 mg Documented By: BEN Clindamycin Phosphate (Cleocin) 900 mg in 50 mls @ 50 mls/hr IV Q8H [facility] Last Infusion: 08/12/22 10:09 Dose: 0 mls/hr Documented By: BEN Vancomycin HCl 1,000 mg/ (Sodium Chloride) 270 mls @ 270 mls/hr IV Q24H [facility] Lidocaine (Lidocaine 4 % Patch Adh..Patch) 1 patch TRANSDERMA DAILY [facility]; Protocol Last Admin: 08/12/22 09:05 Dose: 1 patch Documented By: BEN Melatonin (Melatonin 3 Mg Tablet) 6 mg PO BEDTIME PRN PRN Reason: Insomnia Methylprednisolone Sodium Succinate (Methylprednisolone Sod Succ 40 Mg/Ml Vial) 40 mg IVPUSH Q24H [facility] Metoprolol Succinate (Metoprolol Succinate Er 50 Mg Tab.Er.24h) 50 mg PO DAILY [facility]; Protocol Last Admin: 08/12/22 09:05 Dose: 50 mg Documented By: BEN Multivitamins/Vitamin C (Multivitamin Tablet) 1 tab PO DAILY [facility] Last Admin: 08/12/22 09:05 Dose: 1 tab Documented By: BEN Nicotine (Nicotine 14 Mg Patch.Td24) 14 mg TRANSDERMA DAILY [facility] Last Admin: 08/12/22 09:06 Dose: 14 mg Documented By: BEN Ondansetron HCl (Ondansetron Hcl 4 Mg/2 Ml Vial) 4 mg IVPUSH Q8H PRN PRN Reason: Nausea and Vomiting Pharmacy Consult (Consult Rx Vancomycin Dosing) 1 each MISCELLANE DAILY PRN PRN Reason: Consult order Sodium Chloride (0.9 % Sodium Chloride Flush 3 Ml Syringe) 3 ml IVFLUSH QSHIFT [facility] Last Admin: 08/12/22 09:06 Dose: 3 ml Documented By: BEN Vitamin D (Cholecalciferol (Vitamin D3) 25 Mcg Tablet) 50 mcg PO DAILY [facility] Last Admin: 08/12/22 09:05 Dose: 50 mcg Documented By: BEN Labs CBC & Chem 7: 08/12/22 05:17 08/12/22 05:17 Labs: Laboratory Results - last 24 hr 08/11/22 08/12/22 08/12/22 20:58 05:17 05:17 MCV 103.8 H MCH 33.2 H MCHC 32.0 RDW 14.8 Plt Count 192 D MPV 10.2 Absolute Nucleated RBC 0.000 Nucleated RBC % (auto) 0.0 Anion Gap 12 Estim Creat Clear Calc 57.1 Estimated GFR 51 Random Glucose 145 H Calcium 9.4 C-Reactive Protein 6.03 H Vancomycin Trough 14.5 Assessment and Plan (1) Sepsis: Status: Acute Plan d#6 62yo M with CKD3, chronic hypoxic respiratory failure on 2L O2 at night, HLD, and HTN presenting with L-sided facial swelling, admitted for sepsis # acute on chronic hypoxic respiratory failure due to COPD, acute exacerbation - wean O2 to baseline 2L as tolerated, taper methylprednisolone and continue nebulized bronchodilators # sepsis due to L-sided facial/neck cellulitis - vancomycin d#6, ampicillin-sulbactam d#5. BCx negative. WBCs + CRP improving. ID following. no abscess on repeat scan. d/c'ed lisinopril # HAYLEY/CKD3 - prerenal; HAYLEY resolved with IV fluid resuscitation # hypoNa - resolved # lactic acidosis - resolved with fluid resuscitation # oral thrush - fluconazole d#6, A1c normal, HIV negative # folate deficiency - folate replacement # CAD - continue ASA, statin # HTN - metoprolol and furosemide; lisinopril d/c'ed as above # morbid obesity - diet/exercise counseling # tobacco abuse - NRT # VTE ppx: LMWH # dispo: anticipate home, likely tomorrow on PO clinda + amox/clav In my clinical judgment, the patient requires continued inpatient hospitalization for the following reasons: IV ABX, hypoxia Quality Stroke Does the patient have a stroke diagnosis?: No VTE Prior VTE?: No VTE Risk Level:: Medical - moderate - high VTE Device Contraindication: Treatment Not Indicated VTE Drug Contraindication: N/A - Med Ordered
[2022-08-12] MEDS: Enoxaparin Sodium 40 MG/0.4 ML SYRINGE SUBCUT (20:50)
[2022-08-12 21:04] LABS: Glucose, Whole Blood 130 mg/dL (60-115)
[2022-08-12] MEDS: vancomycin HCL 1,000 MG in 0.9 % Sodium Chloride 250 ML 270 MG IV (22:34)
[2022-08-12] MEDS: Albuterol Sulfate (0.083%) 2.5 MG/3 ML VIAL.NEB INHALE (23:54)
[2022-08-13] MEDS: Clindamycin Phosphate/D5W 900 MG/50 ML PIGGYBACK 50 MG IV ×2 (00:06→08:54)
[2022-08-13 03:58] VITALS: BP 126/57; PULSE 93; RESP 18; TEMP 36.4; O2SAT 92
[2022-08-13] MEDS: methylPREDNISolone Sod Succ 40 MG/ML VIAL IVPUSH (05:57)
[2022-08-13 07:46] VITALS: BP 116/57; PULSE 94; RESP 19; TEMP 36.4; O2SAT 91
[2022-08-13 08:44] LABS: Anion Gap 13 (12-20); Blood Urea Nitrogen 31 mg/dL (9-16); Calcium 9.3 mg/dL (8.4-10.2); Carbon Dioxide 36 mmol/L (22-29); Chloride 97 mmol/L (96-108); Creatinine Clr Calc Pharmacy 61.9; Estimated Glomerular Filt Rate 56; Glucose Random 156 mg/dL (60-115); Potassium 4.2 mmol/L (3.3-5.1); Sodium 142 mmol/L (135-145)
[2022-08-13] MEDS: 0.9 % Sodium Chloride Flush 3 ML SYRINGE IVFLUSH (08:52)
[2022-08-13] MEDS: Gabapentin 300 MG CAPSULE PO (08:53)
[2022-08-13] MEDS: Cholecalciferol (Vitamin D3) 25 MCG TABLET 50 MCG PO (08:53)
[2022-08-13] MEDS: Multivitamin TABLET 1 TAB PO (08:53)
[2022-08-13] MEDS: Fluconazole 100 MG TABLET PO (08:53)
[2022-08-13] MEDS: Metoprolol Succinate ER 50 MG TAB.ER.24H PO (08:53)
[2022-08-13] MEDS: Aspirin Enteric Coated 81 MG TABLET.DR PO (08:53)
[2022-08-13] MEDS: Folic Acid 1 MG TABLET PO (08:53)
[2022-08-13] MEDS: Furosemide 40 MG TABLET PO (08:53)
[2022-08-13] MEDS: Nicotine 14 MG PATCH.TD24 TRANSDERMA (08:54)
[2022-08-13] MEDS: Atorvastatin Calcium 40 MG TABLET PO (08:54)
[2022-08-13] MEDS: Lidocaine 4 % Patch ADH..PATCH 1 PATCH TRANSDERMA (08:54)
--- NOTE | 2022-08-13 10:45 | P.DS_ITS ---
DS: Providers Provider Date of Service: 08/13/22 Date of admission: 08/07/22 21:45 Date of discharge: 08/13/22 Primary care physician: Oswaldo Alvarez MD Consults: 08/08/22 08:27 Consult to Infectious Diseases Routine Consulting Provider: Sanna Owens Reason for consultation: facial cellulitis Consult to Nephrology Routine Consulting Provider: [facility] Reason for consultation: Na 138->125 over 13h, starting D5W DS: Diagnosis Discharge Diagnosis (1) Sepsis: Status: Acute (2) Cellulitis, face: Status: Acute (3) Acute and chronic respiratory failure with hypoxia: Status: Acute (4) COPD exacerbation: Status: Acute (5) Salena, oral: Status: Acute (6) Folic acid deficiency: Status: Acute (7) Morbid obesity: Status: Acute (8) Acute worsening of stage 3 chronic kidney disease: Status: Acute DS: Summary Hospital Course Hospital Course: from admission H+P by vicente Royalist , 08/07/22: This is a 62-year-old male with pertinent history of CKD stage 3, chronic hypoxemic respiratory failure due to COPD on baseline 2 L oxygen at night, mixed hyperlipidemia, essential hypertension who presents to the emergency department for evaluation of left-sided facial swelling.? Patient states he 1st noticed 3 days ago and it has been progressive since.? It initially started after he was scratching the left side of his face.? It soon progressed to cause swelling, redness and warmth.? Also has been having associated facial pain.? No similar complaints in the past.? Noticed whitish discoloration on his tongue and in his mouth.? No dysphagia or odynophagia.? Patient endorses fever and chills.? Denies nausea, vomiting, dyspnea, chest discomfort, palpitations, abdominal pain, changes in urinary or bowel habits.? Patient states he is compliant with his home medications for chronic medical conditions.? Use 2 L oxygen whenever he is sleeping in the day and at night. 62yo M with CKD3, chronic hypoxic respiratory failure on 2L O2 at night, HLD, and HTN presenting with L-sided facial swelling. He was admitted for sepsis to the medical-surgical floor. He was treated with vancomycin and clindamycin IV. ID was consulted. Two serial CT scans did not show any drainable abscess or other collection. He gradually improved and was discharged home on doxycycline and amoxcillin-clavulanate. Lisinopril was discontinued. He had prerenal HAYLEY superimposed on CKD3; HAYLEY resolved with IV fluid resuscitation. He was treated with fluconazole for oral thrush; screening for HIV and DM was negative. He was discharged on clotrimazole troches. He developed acute hypoxia due to COPD excaerbation and was treated with steroids and increased oxygen. He was discharged on prednisone. He was noted to have folate deficiency and was prescribed folate repletion. Time Spent with Patient Time attestation: Total time managing care of this patient today ____ minutes. Discharge coordination time: Greater than 30 minutes Quality: Safe Use of Opioids Does Pt have an Active Cancer Diagnosis on the Problem List?: No Quality: Stroke Does the patient have a stroke diagnosis?: No Physical Exam Vital Signs: Vital Signs: Last Vital Signs Temp 97.5 F 08/13/22 07:46 Pulse 94 08/13/22 07:46 Resp 19 08/13/22 07:46 BP 116/57 L 08/13/22 07:46 Pulse Ox 91 L 08/13/22 07:46 O2 Del Method 08/13/22 07:46 O2 Flow Rate 2.0 08/13/22 07:46 Oxygen Flow Rate 3 08/07/22 16:36 BMI result Body Mass Index 43.9 Gen: in no acute distress HEENT: minimal L-sided facial/neck swelling without erythema and without fluctuance;palpable cyst L mandibular area without fluctuance Neck: as above Lungs: clear bilaterally Heart: tachycardic, no murmurs Abd: soft, non-tender, non-distended Ext: no edema Skin: warm/well-perfused Neuro: alert and oriented x3, no focal findings Psych: appropriate affect DS: Data Data Completed and Pending Completed studies during hospitalization [Text1]: Laboratory Results WBC 10.0 X10*3/uL (4.8-10.8) 08/12/22 05:17 RBC 3.91 X10*6/uL (4.60-5.80) L 08/12/22 05:17 Hgb 13.0 g/dl (14.0-18.0) L 08/12/22 05:17 Hct 40.6 % (42.0-52.0) L 08/12/22 05:17 MCV 103.8 fL (80.0-98.0) H 08/12/22 05:17 MCH 33.2 pg (27.0-33.0) H 08/12/22 05:17 MCHC 32.0 g/dl (31.0-36.0) 08/12/22 05:17 RDW 14.8 % (11.0-16.0) 08/12/22 05:17 Plt Count 192 X10*3/uL (160-400) D 08/12/22 05:17 MPV 10.2 fL (9.4-12.4) 08/12/22 05:17 Immature Gran % (Auto) 0.4 % (0.0-0.4) 08/08/22 05:58 Neut % (Auto) 81.6 % (45-73) H 08/08/22 05:58 Lymph % (Auto) 10.9 % (20-40) L 08/08/22 05:58 Sterling % (Auto) 6.7 % (2-11) 08/08/22 05:58 Eos % (Auto) 0.1 % (0-4) 08/08/22 05:58 Baso % (Auto) 0.3 % (0-2) 08/08/22 05:58 Lymph # (Auto) 1.6 X10*3/uL (1.2-4.9) 08/08/22 05:58 Sterling # (Auto) 1.0 X10*3/uL (0.1-1.2) 08/08/22 05:58 Eos # (Auto) 0.0 X10*3/uL (0.0-0.4) 08/08/22 05:58 Baso # (Auto) 0.0 X10*3/uL (0.0-0.2) 08/08/22 05:58 Abs Immat Gran (auto) 0.06 X10*3/uL (0.00-0.03) H 08/08/22 05:58 Absolute Neuts (auto) 12.0 x10*3/uL (2.0-8.3) H 08/08/22 05:58 Absolute Nucleated RBC 0.000 X10*3/uL (0.0-0.012) 08/12/22 05:17 Nucleated RBC % (auto) 0.0 /100WBC (0.0-0.2) 08/12/22 05:17 Smear Tech's Comments VERIFIED 08/07/22 16:51 PT 12.6 SEC (10.0-13.1) 08/07/22 16:51 INR 1.1 (0.9-1.1) 08/07/22 16:51 Sodium 142 mmol/L (135-145) 08/13/22 07:43 Potassium 4.2 mmol/L (3.3-5.1) D 08/13/22 07:43 Chloride 97 mmol/L (96-108) 08/13/22 07:43 Carbon Dioxide 36 mmol/L (22-29) H 08/13/22 07:43 Anion Gap 13 (12-20) 08/13/22 07:43 BUN 31 mg/dL (9-16) H 08/13/22 07:43 Creatinine 1.30 mg/dL (0.5-1.4) 08/13/22 07:43 Estim Creat Clear Calc 61.9 08/13/22 07:43 Estimated GFR 56 08/13/22 07:43 POC Glucose 130 mg/dL (60-115) H 08/12/22 19:32 Random Glucose 156 mg/dL (60-115) H 08/13/22 07:43 Estimat Average Glucose 111 mg/dL 08/08/22 05:58 Hemoglobin A1c % 5.5 % 08/08/22 05:58 Osmolality 291 mosm/kg (281-305) 08/07/22 16:51 Lactic Acid 2.4 mmol/L (0.5-2.0) H* 08/07/22 16:51 Lactic Acid F/U @ 2Hr 0.6 mmol/L (0.5-2.0) 08/07/22 19:49 Calcium 9.3 mg/dL (8.4-10.2) 08/13/22 07:43 Total Bilirubin 1.4 mg/dL (0.0-1.0) H 08/07/22 16:51 Direct Bilirubin 0.5 mg/dL (0.0-0.5) 08/07/22 16:51 AST 14 U/L (5-37) 08/07/22 16:51 ALT 9 U/L (0-40) 08/07/22 16:51 Alkaline Phosphatase 78 U/L (39-117) 08/07/22 16:51 Total Creatine Kinase 84 U/L (38-174) 08/07/22 16:51 C-Reactive Protein 6.03 mg/dL (< or = 0.50) H 08/12/22 05:17 B-Natriuretic Peptide 85 pg/mL (<100) 08/07/22 16:51 Total Protein 7.5 g/dL (6.5-8.0) 08/07/22 16:51 Albumin 4.2 g/dL (3.5-5.0) 08/07/22 16:51 Vitamin B12 401 pg/mL (200-900) 08/08/22 09:40 Folate 2.5 ng/mL (> or = 4.0) L 08/08/22 09:40 Urine Osmolality 230 mosm/kg (373-1093) L 08/08/22 02:00 Ur Random Sodium 20.0 mmol/L 08/08/22 02:00 Urine Creatinine 52.88 mg/dL 08/08/22 02:00 Vancomycin Trough 14.5 mcg/mL (10.0-20.0) 08/11/22 20:58 Random Vancomycin 10.3 mcg/mL (15-20) L 08/09/22 20:50 COVID-19 (GRZEGORZ) Negative (Negative) 08/07/22 16:51 COVID-19 Clin Com See Note 08/07/22 16:51 HIV 1&2 Ab/P24 Ag 4thGn Nonreactive (Nonreactive) 08/08/22 09:[address] 08/07/22 19:10 IMPRESSION: Chronic right pleural effusion with pleural thickening and rounded atelectasis in the right lower lobe, similar to the previous study. Increased interstitial markings suggesting superimposed interstitial edema or airways inflammation. Moderate upper lobe predominant centrilobular emphysema. Fleischner guidelines were followed. Head CT 08/07/22 19:11 IMPRESSION: 1. No acute intracranial abnormality. Right posterior parietal and left premalar soft tissue swelling without underlying acute fracture. Shoulder X-Ray 08/09/22 14:37 IMPRESSION: Arthritis at the acromioclavicular joint. Face CT 08/09/22 15:08 IMPRESSION: No new soft tissue fluid collection. Stable periorbital soft tissue swelling and anterior frontal scalp soft tissue thickening. Additional stable mild left facial cellulitic changes of indeterminate etiology. Presumed reactive thickening of the platysma muscle, as on prior imaging. No new cervical adenopathy. Interlobular septal thickening in the lungs with scattered subsegmental atelectatic changes superimposed upon emphysema. Pulmonary arterial dilatation can be seen in the setting of chronic pulmonary artery hypertension; clinically correlate. Soft Tissue Neck CT 08/09/22 15:08 IMPRESSION: No new soft tissue fluid collection. Stable periorbital soft tissue swelling and anterior frontal scalp soft tissue thickening. Additional stable mild left facial cellulitic changes of indeterminate etiology. Presumed reactive thickening of the platysma muscle, as on prior imaging. No new cervical adenopathy. Interlobular septal thickening in the lungs with scattered subsegmental atelectatic changes superimposed upon emphysema. Pulmonary arterial dilatation can be seen in the setting of chronic pulmonary artery hypertension; clinically correlate. Venous Duplex 08/09/22 21:08 IMPRESSION: No DVT demonstrated in the left upper extremity. Labs on day of discharge: = Discharge Plan Discharge Anticipated Discharge Date/Time: 08/13/22 10:33 Patient Disposition: Home, Self-Care Discharge Diagnosis: facial cellulitis, COPD exaceration, thrush, folate deficiency Referrals: Oswaldo Alvarez MD [Primary Care Provider] - 1 Week Discharge Medications: New lidocaine [Lidocaine Pain Relief] 4 % Adhesive Patch,Medicated 1 patch transdermal DAILY Qty: 30 0RF Protocol: Apply to: Apply to: left acromioclavicular joint folic acid 1 mg Tablet 1 mg PO DAILY Qty: 30 0RF prednisone 20 mg tablet 40 mg PO DAILY Qty: 4 0RF clotrimazole 10 mg orlin 10 mg mucous membrane 5XD Qty: 25 0RF doxycycline monohydrate 100 mg tablet 100 mg PO BID Qty: 10 0RF amoxicillin-pot clavulanate 875-125 mg tablet 1 tab PO BID Qty: 10 0RF albuterol sulfate 90 mcg/actuation HFA aerosol inhaler 2 puff inhalation Q4-6H PRN (Reason: shortness of breath or wheezing) Qty: 8.5 0RF Rx Instructions: use with spacer device Continued cholecalciferol (vitamin D3) 50 mcg (2,000 unit) capsule 50 mcg PO DAILY Qty: 90 1RF atorvastatin 40 mg tablet 40 mg PO DAILY Qty: 90 3RF furosemide 40 mg tablet 40 mg PO DAILY Qty: 90 3RF metoprolol succinate 50 mg tablet extended release 24 hr 50 mg PO DAILY Qty: 90 3RF gabapentin 300 mg capsule 300 mg PO TID 14 Days Qty: 90 1RF (DME) NEBULIZER See Rx Instructions .Route .MEDSUPPLY Qty: 1 0RF Rx Instructions: As directed aspirin 81 mg Tablet,Delayed Release (Dr/Ec) 81 mg PO DAILY multivitamin Tablet 1 tab PO DAILY ipratropium-albuterol 0.5 mg-3 mg(2.5 mg base)/3 mL solution for nebulization 3 ml inhalation Q6H PRN (Reason: Wheezing) Discontinued lisinopril 20 mg tablet 20 mg PO DAILY Qty: 90 3RF Stand Alone Forms: Patient Portal Discharge page Care Plan Goals: cure of infection Health Concerns: facial cellulitis - doxycycline 100 mg twice daily x 5 days - amoxicillin-clavulanate 875 mg twice daily x 5 days - stop lisinopril COPD exaceration - prednisone 40 mg daily x 2 days - as-needed nebulizer treatments and inhalers thrush - clotrimazole troches 5x a day for 5 days folate deficiency - take folic acid 1 mg daily and increase intake of green leafy vegetables Please follow up with your primary care doctor within 1 week. Return to the hospital if you experience recurrent or worsening symptoms. Plan of Treatment: see above Assessment: See Discharge Summary.
--- NOTE | 2022-08-13 11:31 | PM.PNNEP ---
Subjective Subjective Date of Service: 08/13/22 Interval history: facial swelling continues to improve no fever breathing improved Physical Exam Vital Signs: Vital Signs: Last Vital Signs Temp 97.5 F 08/13/22 07:46 Pulse 94 08/13/22 07:46 Resp 19 08/13/22 07:46 BP 116/57 L 08/13/22 07:46 Pulse Ox 91 L 08/13/22 07:46 O2 Del Method 08/13/22 07:46 O2 Flow Rate 2.0 08/13/22 07:46 Oxygen Flow Rate 3 08/07/22 16:36 BMI result Body Mass Index 43.9 Const: Other: Obese white man in no distress General: cooperative HEENT: Other: swelling face involving eye but can open eyes cartilage discomfort on touching Mouth: Normal oral and palatal mucosa present Teeth and gingiva: dentition normal Eyes: General: appearance normal, both eyes and all related structures Pupils: Equal, round and reactive pupils present Resp: Effort & Inspection: normal respiratory effort Cardio: Rate: regular rate Rhythm: regular rhythm GI: Other: protuberant abdomen Palpation (GI): Soft to palpation and nontender : General: Yes no CVA tenderness Back/Spine/Pelvis: Back: no CVA tenderness Skin: General skin exam: no rashes or lesions noted Neuro: General: moves all extremities Cranial nerves: Yes Equal, round and reactive pupils present Extrem: General: Yes normal to inspection Psych: Appearance: grossly normal Objective Data Labs CBC & Chem 7: 08/12/22 05:17 08/13/22 07:43 Labs: Laboratory Results - last 24 hr 08/12/22 08/13/22 19:32 07:43 Sodium 142 Potassium 4.2 D Chloride 97 Carbon Dioxide 36 H Anion Gap 13 BUN 31 H Creatinine 1.30 Estim Creat Clear Calc 61.9 Estimated GFR 56 POC Glucose 130 H Random Glucose 156 H Calcium 9.3 Microbiology Microbiology Results: Microbiology 08/07/22 16:52 Blood - Venous Blood Culture - Final No growth after 5 days. 08/07/22 16:51 Blood - Venous Blood Culture - Final No growth after 5 days. Procedures Date of Service Date of Service: 08/13/22 Assessment & Plan Assessment and plan (1) HAYLEY (acute kidney injury): Status: Acute (2) Cellulitis: Status: Acute (3) Acute hyponatremia: Status: Acute (4) Chronic kidney disease (CKD), stage III (moderate): Status: Acute (5) Benign essential hypertension: Status: Acute (6) Obstructive sleep apnea: Status: Acute Plan Pt with obesity hypoventilation syndrome who presented with facial cellulitis, HAYLEY on CKD Creat is back to baseline now He has poor insight into his kidney and medical issues His bicarb is elevated likely due to renal compensation for chronic resp acidosis Sodium has normalized BP controlled No changes needed today Time Spent With Patient Time: Total time managing care of this patient today ____ minutes. Progress Note: Quality Stroke Does the patient have a stroke diagnosis?: No
[2022-08-13] MEDS: Albuterol/Iprat 2.5/0.5MG 3 ML AMPUL.NEB INHALE (12:39)
[2022-08-13 12:49] VITALS: PULSE 96; RESP 16; O2SAT 94
--- NOTE | 2022-08-13 13:50 | MHC.CM.PN ---
Addendum entered by Elaine Irizarry 08/13/22 15:14: IMM DELIVERED Original Note: DP: PT IS MEDICALLY CLEARED FOR DC HOME, NO SERVICES. RN AWARE. FAMILY WILL TRANSPORT.
== END 2022-08-13 14:59 | disposition home or self-care (01) | DRG 603 ==
LOC: HO.ED 20:54 → HO.EDOVER 21:49 → HO.S3 21:56
PROVIDERS: Nurse Practitioner Family; Physician Assistant; Admitting Provider Student in an Organized Health Care Education/Training Program; Emergency Provider Internal Medicine; PCP Internal Medicine; Visit Provider Family Medicine
DX: L03.211 Cellulitis of face (principal); B37.0 Candidal stomatitis; E87.1 Hypo-osmolality and hyponatremia; E87.20 Acidosis, unspecified; Z68.41 Body mass index [BMI] 40.0-44.9, adult; J96.11 Chronic respiratory failure with hypoxia; J44.9 Chronic obstructive pulmonary disease, unspecified; I12.9 Hypertensive chronic kidney disease with stage 1 through stage 4 chronic kidney disease, or unspecified chronic kidney disease; N18.30 Chronic kidney disease, stage 3 unspecified; E78.00 Pure hypercholesterolemia, unspecified; E66.01 Morbid (severe) obesity due to excess calories; I25.10 Atherosclerotic heart disease of native coronary artery without angina pectoris; G47.33 Obstructive sleep apnea (adult) (pediatric); E53.8 Deficiency of other specified B group vitamins; Z99.81 Dependence on supplemental oxygen; F17.210 Nicotine dependence, cigarettes, uncomplicated; Z20.822 Contact with and (suspected) exposure to COVID-19; Z23 Encounter for immunization; Z71.3 Dietary counseling and surveillance; Z71.6 Tobacco abuse counseling; Z79.82 Long term (current) use of aspirin; Z79.899 Other long term (current) drug therapy
CPT/HCPCS: 36415; 70450; 70487; 70490; 70491; 71250; 73030; 80048; 80076; 80202; 82550; 82565; 82607; 82746; 82947; 83036; 83605; 83880; 83930; 83935; 84295; 84300; 85025; 85027; 85610; 86140; 87040; 87389; 87635; 90686; 93971; 94640; 99285; J0295; J0696; J1650; J2920; J2930; J3370; Q9967

== ENCOUNTER 2022-09-17 09:33 | Outpatient (REF) | payer MEDICARE, SELFPAY ==
[2022-09-17 11:06] LABS: Appearance Urine Clear; Color Urine Yellow; Glucose Urine UA Negative (Negative); Leukocyte Esterase Urine Trace (Negative); Nitrite Urine Negative (Negative); PH 6.5 (5.0-9.0); UMIC TRIGGER UACC YES; Urine Blood Negative (Negative); Urine Ketones Negative (Negative); Urine Protein Negative (Neg-Trace)
[2022-09-17 11:09] LABS: Bacteria Urine None Seen (None Seen); Hyaline Casts Urine 0-2 /LPF (0-2); MANUAL DIFF FLAG NO; RBC Urine 0-2 /HPF (0-2); Squamous Epithelial Cell Urine 0-2 /HPF (0-2); WBC Urine 0-5 /HPF (0-5)
[2022-09-17 11:14] LABS: Basophils Absolute Auto 0.1 X10*3/uL (0.0-0.2); Basophils Percent Auto 0.9 % (0-2); Eosinophils Absolute Auto 0.3 X10*3/uL (0.0-0.4); Eosinophils Percent Auto 2.6 % (0-4); Hematocrit 50.8 % (42.0-52.0); Hemoglobin 16.4 g/dl (14.0-18.0); Imm Gran Abs Auto 0.04 X10*3/uL (0.00-0.03); Imm Gran Pct Auto 0.3 % (0.0-0.4); Lymphocytes Absolute Auto 3.9 X10*3/uL (1.2-4.9); Lymphocytes Percent Auto 30.1 % (20-40); Mean Corpuscular HGB Conc 32.3 g/dl (31.0-36.0); Mean Corpuscular Hemoglobin 33.3 pg (27.0-33.0); Mean Corpuscular Volume 103.3 fL (80.0-98.0); Monocytes Absolute Auto 0.8 X10*3/uL (0.1-1.2); Neutrophils Absolute Auto 7.8 x10*3/uL (2.0-8.3); Neutrophils Percent Auto 60.1 % (45-73); Platelet Count 201 X10*3/uL (160-400); Red Blood Count 4.92 X10*6/uL (4.60-5.80); Red Cell Distribution Width 14.6 % (11.0-16.0); White Blood Count 12.9 X10*3/uL (4.8-10.8)
[2022-09-17 11:39] LABS: Estimated Average Glucose 108 mg/dL; Hemoglobin A1c % 5.4 %
[2022-09-17 11:48] LABS: Alanine Aminotransferase 17 U/L (0-40); Alkaline Phosphatase 75 U/L (39-117); Anion Gap 11 (12-20); Aspartate Amino Transferase 17 U/L (5-37); Bilirubin Total 0.8 mg/dL (0.0-1.0); Blood Urea Nitrogen 32 mg/dL (9-16); Calcium 9.7 mg/dL (8.4-10.2); Carbon Dioxide 36 mmol/L (22-29); Chloride 96 mmol/L (96-108); Cholesterol 124 mg/dL; Estimated Glomerular Filt Rate 38; Glucose Fasting 101 mg/dL (60-99); HDL Cholesterol 25 mg/dL; LDL Cholesterol Calculated 76 mg/dl; Potassium 4.3 mmol/L (3.3-5.1); Sodium 139 mmol/L (135-145); Total Protein 7.3 g/dL (6.5-8.0); Triglycerides 119 mg/dL
[2022-09-17 12:05] LABS: TSH reflex Free T4 1.58 uIU/mL (0.32-4.0); Vitamin D 25-OH Total 50.6 ng/mL (>30)
== END 2022-09-17 09:34 | disposition home or self-care (01) ==
LOC: HO.HMGCLDS 09:33
PROVIDERS: PCP Internal Medicine; Visit Provider Internal Medicine
DX: I10 Essential (primary) hypertension (principal); E78.00 Pure hypercholesterolemia, unspecified; E55.9 Vitamin D deficiency, unspecified; R73.9 Hyperglycemia, unspecified
CPT/HCPCS: 36415; 80053; 80061; 81001; 82306; 83036; 84443; 85025

== ENCOUNTER 2023-03-22 10:31 | Outpatient (AMB) | payer MEDICARE, SELFPAY ==
[2023-03-22 10:37] VITALS: BP 112/72; PULSE 79; O2SAT 89; BMI 39.5
--- NOTE | 2023-03-22 10:37 | A.OFFPC_ITS ---
Vital Signs 03/22/23 10:37 Height 5 ft 2 in Weight 216 lb BMI 39.5 BP 112/72 Blood Pressure Location Lt brachial Position Sitting Pulse 79 Pulse Source Pulse Oximeter Pulse Oximetry (%) 89 L Oxygen Delivery Method Room Air Intake Visit Reasons: follow-up Allergies No Known Allergies Allergy (Verified 03/22/23 10:48) Medication List - Last Reconciled 03/22/23 by Bib Gill PA-C albuterol sulfate 90 mcg/actuation 2 puffs inhalation Q4-6H PRN aspirin 81 mg PO DAILY atorvastatin 40 mg PO DAILY cholecalciferol (vitamin D3) 50 mcg PO DAILY clotrimazole 10 mg mucous membrane 5XD folic acid 1 mg PO DAILY furosemide 40 mg PO DAILY 90 days gabapentin 300 mg PO TID 30 days ipratropium-albuterol 0.5 mg-3 mg(2.5 mg base)/3 mL 3 mL inhalation Q6H PRN lidocaine 4% (Lidocaine Pain Relief) 1 patch See Protocol transdermal DAILY lisinopril 10 mg PO DAILY 90 days metoprolol succinate ER 50 mg PO DAILY multivitamin 1 tab PO DAILY [NEBULIZER As directed] nicotine 14 mg transdermal DAILY Tobacco use date assessed: 09/21/22 Fall risk assessment: No Falls in past year Last assessed Fall Risk: 03/22/23 Dental Screening Dental Screen Date: 03/22/23 Did you have a dental visit in the last 12 months?: No Did you have a dental problem in the last 6 months where you did not have access to dental care?: No Was dental information given to patient?: No HPI follow-up HPI Details Patient is a 63-year-old male here today for follow-up visit. This is the 1st time I am meeting this 63-year-old male with a past medical history significant for CKD stage 3, hyperlipidemia, COPD, tobacco dependency, hypertension, coronary artery disease and polycythemia. Today he is here asking for a refill on his gabapentin as he has post herpetic neuralgia over his right torso. Also has neuropathy in his lower extremities. Tobacco dependency/COPD: We did discuss that urgent need to stop smoking and patient does understand. He has severe end-stage COPD an on oxygen at home at night. O2 stats today in office fairly low though reports his normal. He otherwise denies any worsening shortness of breath, or productive cough. [facility] Medical History (Updated 03/23/23 @ 07:14 by Bib Gill PA-C) Benign essential hypertension Cellulitis, face Chronic kidney disease (CKD), stage III (moderate) Chronic respiratory failure with hypoxia COPD (chronic obstructive pulmonary disease) Coronary artery disease History of back problems HTN (hypertension) Hypercholesterolemia Impaired fasting glucose Left hand pain Obesity (BMI 30-39.9) Obstructive sleep apnea Peripheral arterial disease Post herpetic neuralgia Pure hypercholesterolemia Secondary polycythemia Severe chronic obstructive pulmonary disease Sleep apnea Smoker Vitamin D deficiency Surgical History History of prostate surgery Recent surgical procedure on lower extremity Family History Father CVD (cardiovascular disease) Diabetes Hypertension Mother Diabetes Hypertension CVD (cardiovascular disease) Brother Obese Pneumonia Heart attack Sister Seizures Son Bipolar disorder Social History Household Members: Children Housing: House Do you presently have visiting nurse or other home services: No Alcohol intake: current Alcohol intake frequency: holidays/special occasions only Patient Tobacco Use Status: Current everyday Tobacco user Tobacco use type: Cigarette Cigarettes Per Day: 7 e-Cigarette/Vaping Use: Never Used Second Hand Smoke Exposure: Yes service: No Current occupational status: disabled Gender identity: Male Cognitive needs: Yes (cane) Hearing needs: No Vision needs: Yes (reading glasses) Questionnaire PHQ-9 Over the last 2 weeks, how often have you been bothered by any of the following problems? 1. Little interest or pleasure in doing things: not at all 2. Feeling down, depressed, or hopeless: not at all 3. Trouble falling or staying asleep, or sleeping too much: not at all 4. Feeling tired or having little energy: not at all 5. Poor appetite or overeating: not at all 6. Feeling bad about yourself - or that you are a failure or have let yourself or your family down: not at all 7. Trouble concentrating on things, such as reading the newspaper or watching television: not at all 8. Moving or speaking so slowly that other people could have noticed. Or the opposite - being so fidgety or restless that you have been moving around a lot more than usual: not at all 9. Thoughts that you would be better off or of hurting yourself in some way: not at all Total score: 0 Depression Screening Interpretation: Negative 82415 - PHQ-9 Billing: Yes Source: Developed by Drs. Cachorro Burns, Mayela Walter, Deng Andres and colleagues, with an educational ally from [employer]. Thrive Questionnaire Date Thrive assessed: 09/21/22 AUDIT C Alcohol Use Questionnaire (AUDIT-C) 1. How often do you have a drink containing alcohol?: Monthly or less 2. How many drinks containing alcohol do you have on a typical day when you are drinking?: 1 or 2 Total Score: 1 Score Reviewed/Action Taken: Yes MACRINA-7 AMB Questionnaire MACRINA-7 Date MACRINA - 7 assessed: 09/21/22 Source: Developed by Drs. Cachorro Burns, Mayela Walter, Deng Andres and colleagues, with an educational ally from [employer]. Review of Systems Const Denies headache(s) Eyes Denies loss of vision ENT Denies vertigo, Denies dizziness, Denies headache(s) and Denies sore throat Card Denies chest pain, Denies leg edema and Denies lightheadedness Resp Denies cough, Denies hemoptysis and Denies wheezing GI Denies abdominal pain, Denies melena, Denies constipation, Denies diarrhea and Denies vomiting Denies dysuria, Denies urinary frequency and Denies urinary urgency Musc Denies arthralgias, Denies joint swelling, Denies numbness and Denies tingling Neuro Denies Abnormal speech present, Denies behavioral changes, Denies vertigo, Denies dizziness, Denies headache(s), Denies loss of vision, Denies memory loss, Denies numbness and Denies tingling Psych Denies anxiety, Denies behavioral changes, Denies depression, Denies memory loss and Denies panic attacks Loin/Lymph Denies easy bleeding and Denies easy bruising Aller/Immun Denies wheezing Physical exam (Primary Care) Vital Signs: Last Vital Signs Pulse 79 03/22/23 10:37 BP 112/72 03/22/23 10:37 Pulse Ox 89 L 03/22/23 10:37 Oxygen Delivery Method Room Air 03/22/23 10:37 BMI result Body Mass Index 39.5 BMI Assessment/Plan discussion: High Tobacco/Smoking Status: Tobacco use Status Tobacco use date assessed 09/21/22 03/22/23 10:43 Patient Tobacco Use Status Current everyday Tobacco 03/22/23 10:43 Tobacco use type Cigarette 03/22/23 10:43 e-Cigarette/Vaping Use Never Used 03/22/23 10:43 Are you ready to quit: No Tobacco cessation counseling provided: Yes Relapse Prevention: discussed the importance of a supportive environment, discussed negative mood or depression after quitting, weight gain after smoking is common and discussed dietary, exercise and/or lifestyle changes Number of minutes spent counselin CPT code: 48363 - 4-10 Minutes PHQ-9: PHQ-9 Score PHQ-9: Total score 0 03/22/23 10:55 Depression Screening Interpretation: Negative Thrive Assessment: Date of Thrive Assessment Date Thrive assessed 09/21/22 03/22/23 10:43 Const Other: Morbidly obese General: no acute distress, alert and awake Nutritional Appearance: well nourished Orientation/consciousness: oriented to person, oriented to place and oriented to time HENMT Ears: TM's normal bilaterally General nose exam: Normal nasal mucous membranes and turbinates present Eyes Conjunctivae: conjunctivae normal Sclerae: sclerae normal Pupils: Equal, round and reactive pupils present Neck Neck: Yes no lymphadenopathy and Yes no JVD Thyroid: Thyroid normal Carotids: no bruits Resp Other: Expiratory wheeze and rales noted, diminished lung sounds Effort & Inspection: normal respiratory effort and not tachypneic Auscultation: no crackles, rales, no rhonchi and wheezes Cardio Rate: regular rate Rhythm: regular rhythm Heart sounds: no murmurs and normal S1 and S2 GI Palpation (GI): Soft to palpation, nontender, no hepatomegaly and no splenomegaly Auscultation: normal bowel sounds Skin General skin exam: no rashes or lesions noted and dry skin Neuro General: oriented to person, oriented to place and oriented to time Cranial nerves: Yes Equal, round and reactive pupils present Speech: No Abnormal speech present Gait exam (Neuro): Normal gait present Motor exam (neuro): no tremor noted Extrem Right upper extremity: full ROM Left upper extremity: full ROM Right lower extremity: full ROM; no edema Left lower extremity: full ROM; no edema Psych Mental Status: mental status grossly normal Speech and movement: Normal speech and movement present Affect: normal affect Attitude: cooperative Thought process: Normal thought process present Assessment and Plan Assessment & Plan (1) Post herpetic neuralgia: Code(s): B02.29 - Other postherpetic nervous system involvement Plan: Patient continues with gabapentin 300 mg t.i.d. for his post herpetic neuralgia and lower extremity polyneuropathy. Needs refill medication. (2) HTN (hypertension): Code(s): I10 - Essential (primary) hypertension Qualifiers: Hypertension type: primary hypertension Qualified Code(s): I10 - Essential (primary) hypertension Plan: Blood pressure acceptable today in office, will continue current dose of antihypertensive medication with goal blood pressure to be below 140/90 (3) Tobacco dependence: Code(s): F17.200 - Nicotine dependence, unspecified, uncomplicated Plan: Patient does understand he needs to quit smoking, has cut down to 6 cigarettes per day. Has nicotine patches and gum available to him to which he uses on intermittent basis. Offered smoking cessation counseling the patient declines. (4) COPD (chronic obstructive pulmonary disease): Code(s): J44.9 - Chronic obstructive pulmonary disease, unspecified Qualifiers: COPD type: emphysema Emphysema type: centrilobular Qualified Code(s): J43.2 - Centrilobular emphysema Plan: Patient with moderate to severe COPD. Patient continues on home oxygen at night. SpO2 set slightly low today in office. He denies any worsening shortness of breath. (5) Obese: Code(s): E66.9 - Obesity, unspecified Qualifiers: Obesity type: due to excess calories Obesity classification: adult class 2 (BMI 35 - 39.9) Serious obesity comorbidity presence: without serious comorbidity Body mass index: BMI 39.0-39.9 Qualified Code(s): E66.09 - Other obesity due to excess calories; Z68.39 - Body mass index [BMI] 39.0-39.9, adult Plan: Patient understands his BMI is over 30, has been difficult to be more physically active due to his moderate to severe COPD. Advised on better eating habits to help him reduce his weight. Medications: Refilled gabapentin 300 mg PO TID 30 days 90 caps 1RF Coding Level of Care Code Est Pt Level 4 (32173) Diagnoses Post herpetic neuralgia B02.29 HTN (hypertension) I10 Hypertension type: primary hypertension Tobacco dependence F17.200 COPD (chronic obstructive pulmonary disease) J43.2 COPD type: emphysema Emphysema type: centrilobular Obese E66.09; Z68.39 Obesity type: due to excess calories Obesity classification: adult class 2 (BMI 35 - 39.9) Serious obesity comorbidity presence: without serious comorbidity Body mass index: BMI 39.0-39.9 Additional Codes Vital Signs *Quality* - CPT code: 52105 - 4-10 Minutes ([id number])
== END 2023-03-22 10:59 | disposition home or self-care (01) ==
PROVIDERS: PCP Internal Medicine; Visit Provider Physician Assistant
DX: I10 Essential (primary) hypertension (principal); F17.210 Nicotine dependence, cigarettes, uncomplicated; Z68.39 Body mass index [BMI] 39.0-39.9, adult; J43.2 Centrilobular emphysema; B02.29 Other postherpetic nervous system involvement; E66.09 Other obesity due to excess calories
CPT/HCPCS: 99214

== ENCOUNTER 2023-04-27 09:21 | Outpatient (REF) | payer MEDICARE, SELFPAY ==
[2023-04-27 11:21] LABS: MANUAL DIFF FLAG NO
[2023-04-27 11:52] LABS: Basophils Absolute Auto 0.1 X10*3/uL (0.0-0.2); Basophils Percent Auto 0.8 % (0-2); Eosinophils Absolute Auto 0.4 X10*3/uL (0.0-0.4); Eosinophils Percent Auto 3.1 % (0-4); Hemoglobin 14.4 g/dl (14.0-18.0); Imm Gran Abs Auto 0.06 X10*3/uL (0.00-0.03); Imm Gran Pct Auto 0.5 % (0.0-0.4); Lymphocytes Absolute Auto 4.1 X10*3/uL (1.2-4.9); Lymphocytes Percent Auto 32.5 % (20-40); Mean Corpuscular Hemoglobin 33.2 pg (27.0-33.0); Mean Corpuscular Volume 103.7 fL (80.0-98.0); Mean Platelet Volume 10.6 fL (9.4-12.4); Monocytes Absolute Auto 0.8 X10*3/uL (0.1-1.2); Monocytes Percent Auto 6.6 % (2-11); Neutrophils Absolute Auto 7.2 x10*3/uL (2.0-8.3); Neutrophils Percent Auto 56.5 % (45-73); Platelet Count 174 X10*3/uL (160-400); Red Blood Count 4.34 X10*6/uL (4.60-5.80); Red Cell Distribution Width 13.9 % (11.0-16.0); White Blood Count 12.7 X10*3/uL (4.8-10.8)
[2023-04-27 12:29] LABS: Alanine Aminotransferase 12 U/L (0-40); Albumin Level 4.1 g/dL (3.5-5.0); Alkaline Phosphatase 77 U/L (39-117); Anion Gap 11 (12-20); Aspartate Amino Transferase 16 U/L (5-37); Bilirubin Total 0.5 mg/dL (0.0-1.0); Blood Urea Nitrogen 38 mg/dL (9-16); Calcium 9.8 mg/dL (8.4-10.2); Carbon Dioxide 36 mmol/L (22-29); Chloride 96 mmol/L (96-108); Cholesterol 117 mg/dL (<200); Estimated Glomerular Filt Rate 41; Glucose Fasting 88 mg/dL (60-99); HDL Cholesterol 25 mg/dL (>40); LDL Cholesterol Calculated 67 mg/dL (<100); Potassium 4.5 mmol/L (3.3-5.1); Sodium 138 mmol/L (135-145); Total Protein 7.5 g/dL (6.5-8.0); Triglycerides 129 mg/dL (<150)
[2023-04-27 12:32] LABS: TSH reflex Free T4 1.44 uIU/mL (0.32-4.0); Vitamin D 25-OH Total 37.8 ng/mL (>30)
[2023-04-27 13:39] LABS: Appearance Urine Clear; Color Urine Yellow; Glucose Urine UA Negative (Negative); Leukocyte Esterase Urine Trace (Negative); Nitrite Urine Negative (Negative); UMIC TRIGGER UACC YES; Urine Blood Negative (Negative); Urine Ketones Negative (Negative); Urine Protein Negative (Neg-Trace)
[2023-04-27 13:45] LABS: Bacteria Urine None Seen (None Seen); Hyaline Casts Urine 0-2 /LPF (0-2); RBC Urine 0-2 /HPF (0-2); Squamous Epithelial Cell Urine 0-2 /HPF (0-2); WBC Urine 0-5 /HPF (0-5)
== END 2023-04-27 09:22 | disposition home or self-care (01) ==
LOC: HO.HMGCLDS 09:21
PROVIDERS: PCP Internal Medicine; Visit Provider Internal Medicine
DX: E78.00 Pure hypercholesterolemia, unspecified (principal); E55.9 Vitamin D deficiency, unspecified; I10 Essential (primary) hypertension; R30.0 Dysuria
CPT/HCPCS: 36415; 80053; 80061; 81001; 81003; 82306; 84443; 85025

== ENCOUNTER 2023-06-23 15:08 | Outpatient (AMB) | payer MEDICARE, SELFPAY ==
--- NOTE | 2023-06-23 15:09 | A.OFFPC_ITS ---
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 Required: No Accompanied by: Self / Same As Patient Allergies No Known Allergies Allergy (Verified 06/23/23 15:39) Medication List - Last Reconciled 06/23/23 by Oswaldo Alvarez MD albuterol sulfate 90 mcg/actuation 2 puffs inhalation Q4-6H PRN aspirin 81 mg PO DAILY atorvastatin 40 mg PO DAILY cholecalciferol (vitamin D3) 50 mcg PO DAILY clotrimazole 10 mg mucous membrane 5XD folic acid 1 mg PO DAILY furosemide 40 mg PO DAILY gabapentin 300 mg PO TID 30 days ipratropium-albuterol 0.5 mg-3 mg(2.5 mg base)/3 mL 3 mL inhalation Q6H PRN lidocaine 4% (Lidocaine Pain Relief) 1 patch See Protocol transdermal DAILY lisinopril 10 mg PO DAILY 90 days metoprolol succinate ER 50 mg PO DAILY multivitamin 1 tab PO DAILY [NEBULIZER As directed] Tobacco use date assessed: 06/23/23 Fall risk assessment: No Falls in past year Last assessed Fall Risk: 06/23/23 Dental Screening Dental Screen Date: 06/23/23 Did you have a dental visit in the last 12 months?: No Did you have a dental problem in the last 6 months where you did not have access to dental care?: No Was dental information given to patient?: No HPI f/u COPD HPI Details Patient comes in today for his follow up visit States that he's had a mild sore throat for the past 2 days He denies any fever, headaches or dizziness Denies any increased nasal or sinus congestion lately Denies any chest pains; still has frequent SOB and GREER but states that this has not gotten any worse than before He still uses his oxygen when needed, often when he is up and moving about and at night when he sleeps States that he did not bring in his oxygen today as he has the big tank and does not have a portable one and finds it impossible to take it with him when he goes out No nausea/vomiting, no abdominal pain No change in bowel habits noted Needs his Gabapentin Rx refilled - states that his pain has improved a lot since his Gabapentin was increased from BID to TID Had his follow up labs done a couple of months ago - to discuss his results Would also like to get his flu shot today [facility] Medical History Cellulitis, face Chronic respiratory failure with hypoxia Left hand pain Obesity (BMI 30-39.9) Chronic kidney disease (CKD), stage III (moderate) Impaired fasting glucose Pure hypercholesterolemia Benign essential hypertension Obstructive sleep apnea Coronary artery disease Severe chronic obstructive pulmonary disease History of back problems Post herpetic neuralgia Peripheral arterial disease Vitamin D deficiency Hypercholesterolemia HTN (hypertension) Sleep apnea COPD (chronic obstructive pulmonary disease) Smoker Secondary polycythemia Surgical History Recent surgical procedure on lower extremity History of prostate surgery Family History Father CVD (cardiovascular disease) Diabetes Hypertension Mother Diabetes Hypertension CVD (cardiovascular disease) Brother Obese Pneumonia Heart attack Sister Seizures Son Bipolar disorder Social History Household Members: Children Housing: House Do you presently have visiting nurse or other home services: No Alcohol intake: current Alcohol intake frequency: holidays/special occasions only Patient Tobacco Use Status: Current everyday Tobacco user Tobacco use type: Cigarette Cigarettes Per Day: 7 e-Cigarette/Vaping Use: Never Used Second Hand Smoke Exposure: Yes service: No Current occupational status: disabled Gender identity: Male Cognitive needs: Yes (cane) Hearing needs: No Vision needs: Yes (reading glasses) Questionnaire PHQ-9 Over the last 2 weeks, how often have you been bothered by any of the following problems? 1. Little interest or pleasure in doing things: not at all 2. Feeling down, depressed, or hopeless: not at all 3. Trouble falling or staying asleep, or sleeping too much: not at all 4. Feeling tired or having little energy: not at all 5. Poor appetite or overeating: not at all 6. Feeling bad about yourself - or that you are a failure or have let yourself or your family down: not at all 7. Trouble concentrating on things, such as reading the newspaper or watching television: not at all 8. Moving or speaking so slowly that other people could have noticed. Or the opposite - being so fidgety or restless that you have been moving around a lot more than usual: not at all 9. Thoughts that you would be better off or of hurting yourself in some way: not at all Total score: 0 Depression Screening Interpretation: Negative Depression Screening Done: Yes [id number] - PHQ-9 Billing: Yes Source: Developed by Drs. Cachorro Burns, Mayela Walter, Deng Andres and colleagues, with an educational ally from [employer]. Thrive Questionnaire Date Thrive assessed: 06/23/23 I am a: Patient What is your living situation today?: I have a steady place to live Within the past 12 months, did the food you bought not last and you didn't have the money to get more?: Never true Within the past 12 months, did you worry whether your food would run out before you got money to buy more?: Never true Do you have trouble paying for medicines?: No Do you have trouble getting transportation to medical appointments?: No Do you have trouble paying your heating and electricity bill?: No Do you have trouble taking care of your child, family member or friend?: No Do you have trouble with day-to-day activities such as bathing, preparing meals, shopping, managing finances, etc.?: No Are you currently unemployed and looking for a job?: No Are you interested in more education?: No Please select the resources that you would like help with: None Currently or been in a relationship where the following occur: no concerns reported AUDIT C Alcohol Use Questionnaire (AUDIT-C) 1. How often do you have a drink containing alcohol?: Monthly or less 2. How many drinks containing alcohol do you have on a typical day when you are drinking?: 1 or 2 Total Score: 1 Score Reviewed/Action Taken: Yes MACRINA-7 AMB Questionnaire MACRINA-7 Date MACRINA - 7 assessed: 06/23/23 Feeling nervous, anxious, or on edge: 0 = Not at all Not being able to stop or control worryin = Not at all Worrying too much about different things: 0 = Not at all Trouble relaxin = Not at all Being so restless that it is hard to sit still: 0 = Not at all Becoming easily annoyed or irritable: 0 = Not at all Feeling afraid as if something awful might happen: 0 = Not at all Total MACRINA-7 score (0-4 normal; 5-9 mild; 10-14 moderate; 15-21 severe): 0 Source: Developed by Drs. Cachorro Burns, Mayela Walter, Deng Andres and colleagues, with an educational ally from [employer]. Review of Systems Const Denies chills, Reports fatigue, Denies fever(s) and Denies headache(s) ENT Denies dysphagia, Denies dizziness, Denies otalgia, Denies headache(s), Denies nasal congestion, Denies neck pain, Denies odynophagia, Denies sinus pain and Reports sore throat (mild, for the past couple of days) Card Denies chest pain, Denies palpitations and Reports dyspnea on exertion Resp Denies chest congestion (but chest feels tight at times), Reports cough (on and off), Reports excessive phlegm production (coughs up scanty thick whitish phlegm ), Reports dyspnea on exertion and Denies wheezing GI Denies abdominal pain, Denies constipation, Denies dysphagia, Denies heartburn, Denies diarrhea, Denies nausea, Denies odynophagia and Denies vomiting Denies dysuria, Denies nocturia and Reports urinary frequency (takes diuretics daily) Musc Denies back pain and Denies neck pain Skin/Breast Denies rash Neuro Denies dizziness and Denies headache(s) Endo Reports fatigue and Denies palpitations Aller/Immun Denies wheezing Physical exam (Primary Care) Vital Signs: Last Vital Signs Pulse 82 06/23/23 15:10 BP 120/70 06/23/23 15:10 Pulse Ox 89 L 06/23/23 15:10 Oxygen Delivery Method Room Air 06/23/23 15:10 BMI result Body Mass Index 40.2 Tobacco/Smoking Status: Tobacco use Status Tobacco use date assessed 06/23/23 06/23/23 15:15 Patient Tobacco Use Status Current everyday Tobacco 06/23/23 15:15 Tobacco use type Cigarette 06/23/23 15:15 e-Cigarette/Vaping Use Never Used 06/23/23 15:15 PHQ-9: PHQ-9 Score PHQ-9: Total score 0 06/23/23 15:45 Depression Screening Interpretation: Negative Thrive Assessment: Date of Thrive Assessment Date Thrive assessed 06/23/23 06/23/23 15:15 Currently or been in a relationship where the following occur: no concerns reported Const General: no acute distress and alert HENMT Ears: TM's normal bilaterally and EAC's normal Throat: Yes posterior oropharynx normal and Yes tonsils normal Neck Neck: Yes no lymphadenopathy and Yes supple Thyroid: no masses Lymphatic: no lymphadenopathy noted Resp Auscultation: no crackles, no rales, no wheezes and diminished lung sounds (significantly) bilateral Cardio Rate: regular rate Rhythm: regular rhythm Heart sounds: no murmurs GI Palpation (GI): Soft to palpation, nontender and no guarding Auscultation: normal bowel sounds Skin Rashes: no rashes Extrem General: No clubbing, No cyanosis and Yes pedal edema (1+ bilaterally) Office Procedures Flu Questionnaire Does the patient have a severe egg allergy?: No Does the patient have severe life threatening allergies?: No Does the patient have a fever or illness today?: No Has the patient ever had Guillain-G[place] Syndrome?: No Has the patient ever had any past reaction to a flu shot?: No Immunizations flu vacc [id number] 6mos up(PF) 60 mcg(15 mcgx4)/0.5 mL IM syringe Performing Provider: Oswaldo Alvarez MD Performing Location: [facility] Administered by: Yasmin Stein on 06/23/23 15:51 Dose Route Admin Location Dispensed Lot Number Expiration Date [facility] Draw Press Operator 0.5 mL IM Right Deltoid 0.5 mL [id number] 03/03/24 [id number] Understory VIS Given Date VIS Provided VIS Publication Date 06/23/23 Single Vaccine 21 Eligibility Eligibility Date Funding Source Not [facility] Eligible 06/23/23 Private Results Reviewed Results Reviewed: Laboratory Tests 04/27/23 09:32 WBC 12.7 H Hgb 14.4 Hct 45.0 Plt Count 174 Sodium 138 Potassium 4.5 Creatinine 1.67 H Estimated GFR 41 Fasting Glucose 88 Calcium 9.8 AST 16 ALT 12 Triglycerides 129 Cholesterol 117 LDL Cholesterol, Calc 67 HDL Cholesterol 25 L 25-OH Vitamin D Total 37.8 TSH 1.44 Urine pH 6.0 Ur Specific [place] 1.010 Urine Protein Negative Urine Glucose (UA) Negative Urine Blood Negative Assessment and Plan Assessment & Plan (1) Severe chronic obstructive pulmonary disease: Code(s): J44.9 - Chronic obstructive pulmonary disease, unspecified Plan: Patient uses supplemental oxygen as needed to help maintain O2 saturation of 88- 93% He currently did not bring his oxygen with him - states that he does not have a portable oxygen unit at present Has not had any symptomatic relief/benefit from hand held inhalers due to decreased inspiratory capacity; is currently only on DuoNeb via nebulizer 3 times a day He used to follow-up with pulmonary regularly but has not seen them in a while - will refer him back to pulmonary for regular follow up (2) Obstructive sleep apnea: Comment: Repeat sleep study with CPAP titration done in 2019 showed that he recquires CPAP with 12-13 cm pressure Code(s): G47.33 - Obstructive sleep apnea (adult) (pediatric) Plan: Continue using his CPAP device when sleeping at night Is advised that his sore throat may be due to his oxygen and CPAP use, as his throat looks normal on exam today but he is advised to call if his symptoms get worse in the next few days (3) Chronic kidney disease (CKD), stage III (moderate): Code(s): N18.30 - Chronic kidney disease, stage 3 unspecified Qualifiers: Chronic kidney disease stage 3 subtype: stage 3a (GFR 45-59) Qualified Code(s): N18.31 - Chronic kidney disease, stage 3a Plan: Patient's serum creatinine and GFR have again improved slightly from previous on his labs done a couple of months ago Will continue to monitor his labs and renal function regularly Follow up with nephrology as scheduled (4) Polycythemia: Code(s): D75.1 - Secondary polycythemia Plan: Improved with regular phlebotomy Has secondary polycythemia (due to his COPD and hypoxia) and continues to get regular phlebotomy for Tx Follow-up with hematology as scheduled (5) Coronary artery disease: Code(s): I25.10 - Atherosclerotic heart disease of [place] coronary artery without angina pectoris Qualifiers: Associated angina: without angina Coronary Disease-Associated Artery/Lesion type: [place] artery [place] vs. transplanted heart: [place] heart Qualified Code(s): I25.10 - Atherosclerotic heart disease of [place] coronary artery without angina pectoris Plan: Continue low dose Aspirin 81 mg QD Follow-up with cardiology as scheduled (6) Pure hypercholesterolemia: Code(s): E78.00 - Pure hypercholesterolemia, unspecified Plan: Results of his labs done a couple of months ago reviewed and discussed with patient Reinforced low cholesterol diet Continue Atorvastatin 40 mg QD Will recheck his labs and fasting lipids in 3 months for follow-up (7) Benign essential hypertension: Code(s): I10 - Essential (primary) hypertension Plan: Reinforced low sodium diet - goal is systolic BP of at least 130 mm or less Continue Metoprolol ER 50 mg QD, Furosemide 40 mg Q AM and Lisinopril 10 mg QD (8) Peripheral arterial disease: Code(s): I73.9 - Peripheral vascular disease, unspecified Plan: Follow up with vascular surgery (Dr. Mcclendon) as scheduled (9) Impaired fasting glucose: Code(s): R73.01 - Impaired fasting glucose Plan: Reinforced low calorie diet/exercise as tolerated His HgbA1c was normal at 5.4% when last checked in September 2022 (10) Vitamin D deficiency: Code(s): E55.9 - Vitamin D deficiency, unspecified Plan: Continue Vitamin D3 2000 units QD (11) Post herpetic neuralgia: Code(s): B02.29 - Other postherpetic nervous system involvement Plan: Continue Gabapentin 300 mg TID - Rx refilled States that his symptoms have improved a lot since his Gabapentin was increased from BID to TID a few months ago (12) Smoker: Code(s): F17.200 - Nicotine dependence, unspecified, uncomplicated Plan: Counseled again on COMPLETE smoking cessation (13) Obesity (BMI 30-39.9): Code(s): E66.9 - Obesity, unspecified Plan: Reinforced diet; exercise and weight loss are not realistic due to patient's severe COPD and poor exercise/activity tolerance Plan Per request, flu vaccine given today Follow up in 3 months Orders: Orders Comprehensive [place]. Panel Fast 3 Months E78.00 - Pure hypercholesterolemia, unspecified Influenza [id number] Immunization 06/23/23 Z23 - Encounter for immunization Lipid Panel 3 Months E78.00 - Pure hypercholesterolemia, unspecified Complete Blood Count Auto Diff 3 Months I10 - Essential (primary) hypertension Referrals Pulmonary Medicine Referral J44.9 - Chronic obstructive pulmonary disease, unspecified Medications: Changed From gabapentin 300 mg PO TID 30 days 90 caps 1RF To gabapentin 300 mg PO TID 90 days 270 caps 1RF Coding Level of Care Code Est Pt Level 4 (92998) Diagnoses Severe chronic obstructive pulmonary disease J44.9 Obstructive sleep apnea G47.33 Stage 3a chronic kidney disease N18.31 Chronic kidney disease stage 3 subtype: stage 3a (GFR 45-59) Polycythemia D75.1 Coronary artery disease involving [place] coronary artery of [place] heart without angina pectoris I25.10 Associated angina: without angina Coronary Disease-Associated Artery/Lesion type: [place] artery [place] vs. transplanted heart: [place] heart Pure hypercholesterolemia E78.00 Benign essential hypertension I10 Peripheral arterial disease I73.9 Impaired fasting glucose R73.01 Vitamin D deficiency E55.9 Post herpetic neuralgia B02.29 Smoker F17.200 Obesity (BMI 30-39.9) E66.9
[2023-06-23 15:10] VITALS: BP 120/70; PULSE 82; O2SAT 89; BMI 40.2
== END 2023-06-23 15:52 | disposition home or self-care (01) ==
PROVIDERS: PCP Internal Medicine; Visit Provider Internal Medicine
DX: Z23 Encounter for immunization (principal)
CPT/HCPCS: 90471; 90686; 99214

== ENCOUNTER 2023-09-18 10:40 | Outpatient (REF) | payer MEDICARE, SELFPAY ==
[2023-09-18 13:41] LABS: MANUAL DIFF FLAG NO
[2023-09-18 13:46] LABS: Basophils Absolute Auto 0.1 X10*3/uL (0.0-0.2); Basophils Percent Auto 0.8 % (0-2); Eosinophils Absolute Auto 0.4 X10*3/uL (0.0-0.4); Eosinophils Percent Auto 3.7 % (0-4); Hematocrit 46.3 % (42.0-52.0); Hemoglobin 14.4 g/dl (14.0-18.0); Imm Gran Abs Auto 0.03 X10*3/uL (0.00-0.03); Imm Gran Pct Auto 0.3 % (0.0-0.4); Lymphocytes Absolute Auto 3.2 X10*3/uL (1.2-4.9); Lymphocytes Percent Auto 28.9 % (20-40); Mean Corpuscular HGB Conc 31.1 g/dl (31.0-36.0); Mean Corpuscular Hemoglobin 32.7 pg (27.0-33.0); Mean Corpuscular Volume 105.2 fL (80.0-98.0); Mean Platelet Volume 10.9 fL (9.4-12.4); Monocytes Absolute Auto 0.8 X10*3/uL (0.1-1.2); Monocytes Percent Auto 7.5 % (2-11); Neutrophils Absolute Auto 6.6 x10*3/uL (2.0-8.3); Neutrophils Percent Auto 58.8 % (45-73); Platelet Count 172 X10*3/uL (160-400); Red Cell Distribution Width 14.5 % (11.0-16.0); White Blood Count 11.1 X10*3/uL (4.8-10.8)
[2023-09-18 14:16] LABS: Alanine Aminotransferase 18 U/L (0-40); Albumin Level 4.1 g/dL (3.5-5.0); Alkaline Phosphatase 87 U/L (39-117); Anion Gap 12 (12-20); Aspartate Amino Transferase 16 U/L (5-37); Bilirubin Total 0.4 mg/dL (0.0-1.0); Blood Urea Nitrogen 26 mg/dL (9-16); Calcium 9.9 mg/dL (8.4-10.2); Carbon Dioxide 36 mmol/L (22-29); Chloride 96 mmol/L (96-108); Cholesterol 119 mg/dL (<200); Estimated Glomerular Filt Rate 49; Glucose Fasting 107 mg/dL (60-99); HDL Cholesterol 27 mg/dL (>40); LDL Cholesterol Calculated 52 mg/dL (<100); Potassium 4.4 mmol/L (3.3-5.1); Sodium 140 mmol/L (135-145); Total Protein 7.5 g/dL (6.5-8.0); Triglycerides 203 mg/dL (<150)
== END 2023-09-18 10:41 | disposition home or self-care (01) ==
LOC: HO.HMGCLDS 10:40
PROVIDERS: PCP Internal Medicine; Visit Provider Internal Medicine
DX: I10 Essential (primary) hypertension (principal); E78.00 Pure hypercholesterolemia, unspecified
CPT/HCPCS: 36415; 80053; 80061; 85025

== ENCOUNTER → 2024-04-30 14:09 | Outpatient (RCR) | payer MEDICARE, SELFPAY ==
[2020-07-01 10:52] VITALS: BP 129/58; PULSE 93; RESP 20; TEMP 36.8; O2SAT 98
[2020-07-01 10:59] VITALS: BMI 42.7
--- NOTE | 2020-07-01 11:02 | PM.HEMONCPN ---
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 Hemoglobin was 19 gram/dL. Chronic smoking with underlying COPD and sleep apnea probable cause. Intermittent therapeutic phlebotomy. Interval History Interval history: Patient is here in follow-up. He is doing a lot better. He has been seen by wastewater engineer, he is now using oxygen at home and has inhalers for his COPD. He still does not have the sleep apnea machine. However, overall he is doing much better. He has not undergone any further therapeutic phlebotomies. He denies any chest pain, shortness of breath, cough, fever or chills. He continues to smoke, he is trying to quit. Review of Systems - Constitutional Reports no additional constitutional complaints - Cardiovascular Reports no additional cardiovascular complaints - Respiratory Reports no additional respiratory complaints [facility] Medical History: Medical History (Last Updated 07/01/20 @ 08:27 by Leanna Monk RN) COPD (chronic obstructive pulmonary disease) History of back problems HTN (hypertension) Hypercholesterolemia Peripheral arterial disease Post herpetic neuralgia Secondary polycythemia Sleep apnea Smoker Vitamin D deficiency Family History: Family History (Last Updated 06/10/20 @ 07:31 by PATTI Palmer) Father CVD (cardiovascular disease) Diabetes Hypertension Mother Diabetes Hypertension CVD (cardiovascular disease) Brother Obese Pneumonia Heart attack Sister Seizures Son Bipolar disorder Surgical History: Surgical History (Last Updated 06/10/20 @ 07:25 by PATTI Palmer) History of prostate surgery Recent surgical procedure on lower extremity Smoking status: Current every day smoker Alcohol intake frequency: former alcohol drinker 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 Oncology Screenings - ECOG Performance Status ECOG Performance Status: 1 Home Medications and Allergies Home Medications Medication Instructions Recorded Confirmed Type aspirin [Aspir-81] 81 mg PO DAILY 07/01/20 07/01/20 History atorvastatin 1 tab PO DAILY 07/01/20 07/01/20 History cholecalciferol (vitamin D3) 1 cap PO DAILY 07/01/20 07/01/20 History [Vitamin D3] furosemide 1 tab PO DAILY 07/01/20 07/01/20 History gabapentin 1 cap PO BEDTIME 07/01/20 07/01/20 History ipratropium-albuterol 1 vial INHALATION Q6H PRN 07/01/20 07/01/20 History lisinopril 1 tab PO DAILY 07/01/20 07/01/20 History metoprolol succinate 1 tab PO DAILY 07/01/20 07/01/20 History Allergies Allergy/AdvReac Type Severity Reaction Status Date / Time No Known Allergies Allergy Verified 06/10/20 07:22 Exam Vital signs: Vital Signs Temp 98.3 F 07/01/20 10:52 Pulse 93 07/01/20 10:52 Resp 20 07/01/20 10:52 BP 129/58 L 07/01/20 10:52 Pulse Ox 98 07/01/20 10:52 - Routine HEENT Exam Head: Present: normal inspection Eye: Present: EOMI, conjunctivae pink - Routine Neck Exam Absent: lymphadenopathy - Routine Respiratory Exam Absent: rhonchi, stridor - Routine Cardiovascular Exam Cardiovascular: Present: RRR, S1, S2 - Routine Extremities Exam Absent: pedal edema - Routine Skin Exam Present: intact, erythema. Absent: cyanosis Comments: Generalized facial rubor noted. - Routine Neurological Exam Present: alert, oriented X3 Data - Labs CBC & Chem 7: 07/01/20 10:59 Progress Note: A/P (1) Polycythemia Status: Acute Assessment and plan: 1. This is a 60-year-old male with chronic COPD, sleep apnea and smoking history presenting with worsening polycythemia. He had a hematological workup in 2008, JAK2 mutation was negative. Serum erythropoietin level was in the normal range. He most likely has secondary polycythemia related to his COPD and chronic hypoxemia. He has been diagnosed with sleep apnea but does not have a CPAP machine. He takes baby aspirin daily. Since he started using oxygen for his COPD, his hemoglobin level is coming down. He is feeling a lot better. Hold off therapeutic phlebotomy for now. He was strongly advised about smoking cessation and he wants to at least cut back. He says that he does not smoke anywhere near the oxygen cylinder. Follow-up in 6 months. - Time Spent With Patient Total time spent is greater than 50% in coordination of care (as documented) at patient's floor/unit and/or counseling patient: 15 - 24 minutes
[2020-07-01 11:27] LABS: MANUAL DIFF FLAG NO
[2020-07-01 11:37] LABS: Basophils Absolute Auto 0.1 X10*3/uL (0.0-0.2); Basophils Percent Auto 0.8 % (0-2); Eosinophils Absolute Auto 0.5 X10*3/uL (0.0-0.4); Eosinophils Percent Auto 3.5 % (0-4); Hematocrit 50.7 % (42-52); Hemoglobin 16.7 g/dl (14.0-18.0); Imm Gran Abs Auto 0.05 X10*3/uL (0.00-0.03); Imm Gran Pct Auto 0.4 % (0.0-0.4); Lymphocytes Absolute Auto 4.1 X10*3/uL (1.2-4.9); Lymphocytes Percent Auto 30.3 % (20-40); Mean Corpuscular HGB Conc 32.9 g/dl (31.0-36.0); Mean Corpuscular Hemoglobin 33.8 pg (27.0-33.0); Mean Corpuscular Volume 102.6 fL (80-98); Mean Platelet Volume 10.1 fL (9.4-12.4); Monocytes Absolute Auto 0.8 X10*3/uL (0.1-1.2); Monocytes Percent Auto 5.8 % (2-11); Neutrophils Percent Auto 59.2 % (45-73); Platelet Count 189 X10*3/uL (160-400); Red Blood Count 4.94 X10*6/uL (4.60-5.80); White Blood Count 13.5 X10*3/uL (4.8-10.8)
[2020-07-03 22:27] LABS: Erythropoietin (EPO) 17.6 mIU/mL (2.6-18.5)
== END | disposition home or self-care (01) ==
LOC: HO.ONC 07-01 10:42
PROVIDERS: PCP Internal Medicine; Visit Provider Internal Medicine
DX: D75.1 Secondary polycythemia (principal); J44.9 Chronic obstructive pulmonary disease, unspecified; G47.30 Sleep apnea, unspecified; F17.200 Nicotine dependence, unspecified, uncomplicated; Z71.6 Tobacco abuse counseling; Z99.81 Dependence on supplemental oxygen
CPT/HCPCS: 36415; 82668; 85025; 99214

== ENCOUNTER 2024-07-04 14:50 | Outpatient (REF) | payer MEDICARE, SELFPAY | END 2024-07-04 14:51 | disposition home or self-care (01) | LOC: HO.HOSX 14:50 | DX: Z13.89 Encounter for screening for other disorder (principal) ==

== ENCOUNTER 2024-07-05 14:52 | Outpatient (AMB) | payer MEDICARE, SELFPAY ==
--- NOTE | 2024-07-05 15:02 | A.OFFVIS_ITS ---
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 Patient reports numbness and tingling of the hands. He is also concerned for bilateral thumb limited ROM as well as numbness. Has tried braces in the past. Denies any prior injuries or surgeries to the hands. 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 The patient states that he is unable to fully extend the middle and ring fingers of the bilateral hands, but states that the left side is worse, and may involve the small finger as well. The patient still states that his can has progressively worsened over the last 1-2 years, and then he would like to explore surgical intervention at this time. Patient denies any numbness or tingling of the bilateral hands. No other acute complaints or concerns at this time. [facility] Medical History (Updated 07/24/24 @ 13:04 by HADLEY Calixto) Pure hypercholesterolemia Benign essential hypertension Obstructive sleep apnea Chronic respiratory failure with hypoxia Obesity (BMI 30-39.9) Chronic kidney disease (CKD), stage III (moderate) Impaired fasting glucose Coronary artery disease Severe chronic obstructive pulmonary disease History of back problems Post herpetic neuralgia Peripheral arterial disease Vitamin D deficiency HTN (hypertension) Sleep apnea COPD (chronic obstructive pulmonary disease) Smoker Secondary polycythemia Surgical History Recent surgical procedure on lower extremity History of prostate surgery Family History Father CVD (cardiovascular disease) Diabetes Hypertension Mother Diabetes Hypertension CVD (cardiovascular disease) Brother Obese Pneumonia Heart attack Sister Seizures Son Bipolar disorder Social History Household Members: Children Housing: House Do you presently have visiting nurse or other home services: No Alcohol intake: current Alcohol intake frequency: holidays/special occasions only Comment: pt refusing alarm Patient Tobacco Use Status: Current everyday Tobacco user Tobacco use type: Cigarette Cigarettes Per Day: 7 e-Cigarette/Vaping Use: Never Used Second Hand Smoke Exposure: Yes service: No Current occupational status: disabled Gender identity: Male Cognitive needs: Yes (cane) Hearing needs: No Vision needs: Yes (reading glasses) Review of Systems Const All systems reviewed & are unremarkable except as noted in HPI and below Physical Exam Extrem Other: Patient is alert, oriented, and in no acute distress. Neuro: Normal sensation of the tips of all digits of the bilateral hands at this time Vascular: Cap refill brisk Pain: Patient reports no tenderness to palpation about the cords present on the right middle and ring fingers or the left middle, ring, and small fingers ROM: Patient was noted to have significant Dupuytren's contractures of bilateral middle and ring fingers, as well as left small finger Noted to have an approximately 25-30 of the contracture of left middle and ring fingers, with an approximately 5-10 degree contracture of the small finger Noted have approximately 15-20 degree contractures of the right middle and ring finger Skin: No lacerations or abrasions. General: No ecchymosis, erythema, or evidence of infection. Positive table top test bilaterally Psych: Appears grossly normal Affect normal Attitude cooperative Assessment & Plan Assessment & Plan (1) Dupuytren's contracture of both hands: Code(s): M72.0 - Palmar fascial fibromatosis [Dupuytren] Category: Medical Plan 1. Dupuytren's contractures of bilateral hands I educated the patient about the condition. I discussed both operative and nonoperative treatment options. The patient would like to proceed with surgery. The risks and benefits of operative treatment were discussed with the patient and the patient wishes to proceed with surgery. These risks include, but are not limited to, risk of damage to blood vessels, nerves, tendons, infection, recurrence, incomplete relief of preoperative symptoms, persistent pain, possible need for further surgery, and the risks associated with regional blocks and/or anesthesia. Plan is to take the patient to the operating room at some point in the next few weeks for the following procedures: 1. Left hand partial Dupuytren's fasciectomy of the middle, ring, small fingers under general anesthesia All of the preoperative paperwork including the consent was discussed today. All of the patient's questions were answered in the clinic today. The patient understands that they will be in contact with our surgical instruments inspector to discuss scheduling their procedure. However, due to the patient's very significant past medical history including COPD, stage 3 chronic kidney disease, and current smoking, he will require c learance from his Primary Care Provider, fuse cup expander, and information coordinator prior to scheduling surgery Orders: Orders XR hand RT min 3V 07/05/24 M79.641 - Pain in right hand XR hand LT min 3V 07/05/24 M79.642 - Pain in left hand Coding Level of Care Code New Pt Level 4 (80574) Diagnoses Dupuytren's contracture of both hands M72.0
== END 2024-07-05 15:45 | disposition home or self-care (01) ==
LOC: HO.HOS 14:53
PROVIDERS: PCP Internal Medicine
DX: M72.0 Palmar fascial fibromatosis [Dupuytren] (principal)
CPT/HCPCS: 99204

== ENCOUNTER 2024-07-05 14:52 | Outpatient (REF) | payer MEDICARE, SELFPAY ==
--- NOTE | ~2024-07-05 | XR_ITS ---
EXAMINATION: XR HAND LEFT CLINICAL INFORMATION: Pain in left hand M79.642. COMPARISON: XR Left hand wrist 12/09/2020 TECHNIQUE: PA, lateral, and oblique views of the left hand. FINDINGS: The bones and soft tissues are normal. No fracture. Diffuse mild degenerative changes of the interphalangeal joints. Normal radiocarpal alignment.. No erosions or soft tissue calcifications. XR/XR hand LT min 3V IMPRESSION: Diffuse mild degenerative changes of the interphalangeal joints consistent with osteoarthritis. Electronically signed by: Abdirashid Arce MD 08/15/2024 09:54 AM [facility]
--- NOTE | ~2024-07-05 | XR_ITS ---
EXAMINATION: XR HAND RIGHT CLINICAL INFORMATION: Pain in right hand M79.641. COMPARISON: XR Right hand 07/01/2016 TECHNIQUE: PA, lateral, and oblique views of the right hand. FINDINGS: The bones and soft tissues are normal. No fracture. Diffuse mild degenerative changes of the interphalangeal joints. Normal radiocarpal alignment.. No erosions or soft tissue calcifications. XR/XR hand RT min 3V IMPRESSION: Diffuse mild degenerative changes of the interphalangeal joints consistent with osteoarthritis. Electronically signed by: Abdirashid Arce MD 08/15/2024 09:51 AM EST
== END 2024-07-05 14:53 | disposition home or self-care (01) ==
LOC: HO.HOSX 14:52
PROVIDERS: PCP Internal Medicine
DX: M79.641 Pain in right hand (principal); M79.642 Pain in left hand; M72.0 Palmar fascial fibromatosis [Dupuytren]; J44.9 Chronic obstructive pulmonary disease, unspecified; N18.30 Chronic kidney disease, stage 3 unspecified; F17.210 Nicotine dependence, cigarettes, uncomplicated
CPT/HCPCS: 73130; 99202

== ENCOUNTER 2024-07-17 12:55 | Outpatient (AMB) | payer MEDICARE, SELFPAY ==
[2024-07-17 13:03] VITALS: BP 118/66; PULSE 72; O2SAT 88; BMI 37.5
--- NOTE | 2024-07-17 13:03 | MHC.PC.OV ---
Vital Signs 07/17/24 13:03 Height 5 ft 2 in Weight 205 lb 4 oz BMI 37.5 BP 118/66 Blood Pressure Location Lt brachial Position Sitting Pulse 72 Pulse Source Pulse Oximeter Pulse Oximetry (%) 88 L Oxygen Delivery Method Nasal Cannula Oxygen Flow Rate 2 Intake Visit Reasons: Rescheduled from 03/22 Rescue Worker Required: No Accompanied by: Self / Same As Patient Allergies No Known Allergies Allergy (Verified 07/17/24 13:18) Medication List - Last Reconciled 07/17/24 by Oswaldo Alvarez MD albuterol sulfate 90 mcg/actuation 2 puffs inhalation Q4-6H PRN aspirin 81 mg PO DAILY atorvastatin 40 mg PO DAILY cholecalciferol (vitamin D3) 50 mcg PO DAILY folic acid 1 mg PO DAILY furosemide 40 mg PO DAILY gabapentin 300 mg PO TID 90 days ipratropium-albuterol 0.5 mg-3 mg(2.5 mg base)/3 mL 3 mL inhalation Q6H PRN lidocaine 4% (Lidocaine Pain Relief) 1 patch See Protocol transdermal DAILY lisinopril 10 mg PO DAILY 90 days metoprolol succinate ER 50 mg PO DAILY multivitamin 1 tab PO DAILY [NEBULIZER As directed] [PORTABLE OXYGEN CONCENTRATOR Use as directed] Tobacco use date assessed: 07/17/24 Fall risk assessment: No Falls in past year Last assessed Fall Risk: 07/17/24 Dental Screening Dental Screen Date: 07/17/24 Did you have a dental visit in the last 12 months?: No Did you have a dental problem in the last 6 months where you did not have access to dental care?: No Was dental information given to patient?: No HPI Rescheduled from 03/22 HPI Details Patient comes in today for his follow up visit - he has not been back in over a year (was last seen on 06/23/2023) States that he has lost a lot of weight since he was last here and he feels much better overall and is able to move around much easier He still has oxygen on at 2 LPM, mostly at night when he is sleeping and with activity and when he goes out of the house States that he otherwise takes it off for a while when he is at home and not doing much in terms of activity He denies any headaches or dizziness Denies any chest pains, no increased SOB No nausea/vomiting, no abdominal pain No change in bowel habits noted He has not had any follow up labs done in a while now and needs some labs ordered He would also like to get his flu shot today [facility] Medical History (Updated 07/17/24 @ 13:40 by Oswaldo Alvarez MD) Pure hypercholesterolemia Benign essential hypertension Obstructive sleep apnea Chronic respiratory failure with hypoxia Obesity (BMI 30-39.9) Chronic kidney disease (CKD), stage III (moderate) Impaired fasting glucose Coronary artery disease Severe chronic obstructive pulmonary disease History of back problems Post herpetic neuralgia Peripheral arterial disease Vitamin D deficiency HTN (hypertension) Sleep apnea COPD (chronic obstructive pulmonary disease) Smoker Secondary polycythemia Surgical History Recent surgical procedure on lower extremity History of prostate surgery Family History Father CVD (cardiovascular disease) Diabetes Hypertension Mother Diabetes Hypertension CVD (cardiovascular disease) Brother Obese Pneumonia Heart attack Sister Seizures Son Bipolar disorder Social History Household Members: Children Housing: House Do you presently have visiting nurse or other home services: No Alcohol intake: current Alcohol intake frequency: holidays/special occasions only Comment: pt refusing alarm Patient Tobacco Use Status: Current everyday Tobacco user Tobacco use type: Cigarette Cigarettes Per Day: 7 e-Cigarette/Vaping Use: Never Used Second Hand Smoke Exposure: Yes service: No Current occupational status: disabled Gender identity: Male Cognitive needs: Yes (cane) Hearing needs: No Vision needs: Yes (reading glasses) Questionnaire PHQ-9 Over the last 2 weeks, how often have you been bothered by any of the following problems? 1. Little interest or pleasure in doing things: not at all 2. Feeling down, depressed, or hopeless: not at all 3. Trouble falling or staying asleep, or sleeping too much: not at all 4. Feeling tired or having little energy: not at all 5. Poor appetite or overeating: not at all 6. Feeling bad about yourself - or that you are a failure or have let yourself or your family down: not at all 7. Trouble concentrating on things, such as reading the newspaper or watching television: not at all 8. Moving or speaking so slowly that other people could have noticed. Or the opposite - being so fidgety or restless that you have been moving around a lot more than usual: not at all 9. Thoughts that you would be better off or of hurting yourself in some way: not at all Total score: 0 Depression Screening Interpretation: Negative Depression Screening Done: Yes 05452 - PHQ-9 Billing: Yes Source: Developed by Drs. Cachorro Burns, Mayela Walter, Deng Andres and colleagues, with an educational ally from [id number]. Thrive Questionnaire Date Thrive assessed: 07/17/24 I am a: Patient What is your living situation today?: I have a steady place to live Within the past 12 months, did the food you bought not last and you didn't have the money to get more?: Never true Within the past 12 months, did you worry whether your food would run out before you got money to buy more?: Never true Do you have trouble paying for medicines?: No Do you have trouble getting transportation to medical appointments?: No Do you have trouble paying your heating and electricity bill?: No Do you have trouble taking care of your child, family member or friend?: No Do you have trouble with day-to-day activities such as bathing, preparing meals, shopping, managing finances, etc.?: No Are you currently unemployed and looking for a job?: No Are you interested in more education?: No Please select the resources that you would like help with: None Currently or been in a relationship where the following occur: No concerns reported THRIVE Score: 0 AUDIT C Alcohol Use Questionnaire (AUDIT-C) 1. How often do you have a drink containing alcohol?: Monthly or less 2. How many drinks containing alcohol do you have on a typical day when you are drinking?: 1 or 2 Total Score: 1 Score Reviewed/Action Taken: Yes MACRINA-7 AMB Questionnaire MACRINA-7 Date MACRINA - 7 assessed: 07/17/24 Feeling nervous, anxious, or on edge: 0 = Not at all Not being able to stop or control worryin = Not at all Worrying too much about different things: 0 = Not at all Trouble relaxin = Not at all Being so restless that it is hard to sit still: 0 = Not at all Becoming easily annoyed or irritable: 0 = Not at all Feeling afraid as if something awful might happen: 0 = Not at all Total MACRINA-7 score (0-4 normal; 5-9 mild; 10-14 moderate; 15-21 severe): 0 Source: Developed by Drs. Cachorro Burns, Mayela Walter, Deng Andres and colleagues, with an educational ally from [id number]. Review of Systems Const Denies chills, Reports fatigue, Denies fever(s) and Denies headache(s) ENT Denies dysphagia, Denies dizziness, Denies otalgia, Denies headache(s), Denies neck pain, Denies odynophagia and Denies sore throat Card Denies chest pain, Denies palpitations and Reports dyspnea on exertion Resp Denies chest congestion, Reports cough (on and off; coughs up scanty, thick whitish phlegm), Reports dyspnea on exertion and Denies wheezing GI Denies abdominal pain, Denies constipation, Denies dysphagia, Denies heartburn, Denies diarrhea, Denies nausea, Denies odynophagia and Denies vomiting Denies dysuria, Denies nocturia and Reports urinary frequency (takes diuretics daily) Musc Denies back pain and Denies neck pain Skin/Breast Denies rash Neuro Denies dizziness and Denies headache(s) Endo Reports fatigue and Denies palpitations Aller/Immun Denies wheezing Physical exam (Primary Care) Vital Signs: Last Vital Signs Pulse 72 07/17/24 13:03 BP 118/66 07/17/24 13:03 Pulse Ox 88 L 07/17/24 13:03 Oxygen Delivery Method Nasal Cannula 07/17/24 13:03 Oxygen Flow Rate 2 07/17/24 13:03 BMI result Body Mass Index 37.5 Tobacco/Smoking Status: Tobacco use Status Tobacco use date assessed 07/17/24 07/17/24 13:09 Patient Tobacco Use Status Current everyday Tobacco 07/17/24 13:09 Tobacco use type Cigarette 07/17/24 13:09 e-Cigarette/Vaping Use Never Used 07/17/24 13:09 PHQ-9: PHQ-9 Score PHQ-9: Total score 0 07/17/24 13:41 Depression Screening Interpretation: Negative Thrive Assessment: Date of Thrive Assessment Date Thrive assessed 07/17/24 07/17/24 13:09 Currently or been in a relationship where the following occur: No concerns reported Const General: no acute distress and alert HENMT Ears: TM's normal bilaterally and EAC's normal Throat: Yes posterior oropharynx normal and Yes tonsils normal Neck Neck: Yes no lymphadenopathy and Yes supple Thyroid: Thyroid normal and no masses Lymphatic: no lymphadenopathy noted Resp Auscultation: no crackles, no rales, no wheezes and diminished lung sounds (significantly) bilateral Cardio Rate: regular rate Rhythm: regular rhythm Heart sounds: no murmurs GI Palpation (GI): Soft to palpation and nontender Auscultation: normal bowel sounds General: Yes no CVA tenderness Back/Spine/Pelvis Back: no CVA tenderness Thoracic/Lumbar Spine: No lumbar spinal tenderness Skin Rashes: no rashes Extrem General: No clubbing, No cyanosis and Yes pedal edema (1+ bilaterally) Office Procedures Flu Questionnaire Does the patient have a severe egg allergy?: No Does the patient have severe life threatening allergies?: No Does the patient have a fever or illness today?: No Has the patient ever had Guillain-[place] Syndrome?: No Has the patient ever had any past reaction to a flu shot?: No Immunizations Fluarix Triv [id number] (PF) 45 mcg (15 mcg x 3)/0.5 mL IM syringe Performing Provider: Oswaldo Alvarez MD [facility] [place] [facility] Administered by: PATTI Mims on 07/17/24 13:15 Dose Route Admin Location Dispensed Lot Number Expiration Date [facility] Gravure Press Set Up Operator 0.5 mL IM Right Deltoid 0.5 mL [id number] 03/03/25 12081-053-45 [employer] VIS Given Date VIS Provided VIS Publication Date 07/17/24 Single Vaccine 21 Eligibility Eligibility Date Funding Source Not [facility] Eligible 07/17/24 Private Coding Level of Care Code Est Pt Level 4 (40024) Diagnoses Severe chronic obstructive pulmonary disease J44.9 Obstructive sleep apnea G47.33 Stage 3a chronic kidney disease N18.31 Chronic kidney disease stage 3 subtype: stage 3a (GFR 45-59) Polycythemia D75.1 Coronary artery disease involving [place] coronary artery of [place] heart without angina pectoris I25.10 Associated angina: without angina Coronary Disease-Associated Artery/Lesion type: [place] artery [place] vs. transplanted heart: [place] heart Pure hypercholesterolemia E78.00 Benign essential hypertension I10 Peripheral arterial disease I73.9 Impaired fasting glucose R73.01 Vitamin D deficiency E55.9 Post herpetic neuralgia B02.29 Dupuytren's contracture of left hand M72.0 Smoker F17.200 Obesity (BMI 30-39.9) E66.9 Additional Codes PHQ-9 - 32981 - PHQ-9 Billing: Yes ([id number]) Assessment & Plan Assessment & Plan (1) Severe chronic obstructive pulmonary disease: Code(s): J44.9 - Chronic obstructive pulmonary disease, unspecified Category: Medical Plan: Patient uses supplemental oxygen as needed to help maintain his O2 saturation between 88-93% As he has not had any symptomatic relief/benefit from hand held inhalers in the past due to decreased inspiratory capacity, per pulmonary, he is currently only on DuoNeb via nebulizer 3 times a day as needed He used to follow-up with pulmonary regularly but has not seen them in a while (last visit was in April 2020) and he was referred back to pulmonary last year for regular follow up but it looks like he has not yet been seen He is scheduled to be seen by pulmonary for surgical clearance next month (2) Obstructive sleep apnea: Comment: Repeat sleep study with CPAP titration done in 2018 showed that he recquires CPAP with 12-13 cm pressure Code(s): G47.33 - Obstructive sleep apnea (adult) (pediatric) Category: Medical Plan: Continue using his CPAP device when sleeping at night (3) Chronic kidney disease (CKD), stage III (moderate): Code(s): N18.30 - Chronic kidney disease, stage 3 unspecified Category: Medical Qualifiers: Chronic kidney disease stage 3 subtype: stage 3a (GFR 45-59) Qualified Code(s): N18.31 - Chronic kidney disease, stage 3a Plan: He has not had any labs done since September 2023 so will send him for some labs LEILANI Will continue to monitor his labs and renal function regularly Follow up with nephrology as scheduled (4) Polycythemia: Code(s): D75.1 - Secondary polycythemia Category: Medical Plan: This improved with regular phlebotomy previously but he had not had any follow up labs done since September 2023 and will send him for labs LEILANI He has secondary polycythemia (due to his COPD and hypoxia) and was getting regular phlebotomy for Tx but he was lost to follow up for most of the year He is instructed to follow up again with hematology regularly (5) Coronary artery disease: Code(s): I25.10 - Atherosclerotic heart disease of [place] coronary artery without angina pectoris Category: Medical Qualifiers: Associated angina: without angina Coronary Disease-Associated Artery/Lesion type: [place] artery [place] vs. transplanted heart: [place] heart Qualified Code(s): I25.10 - Atherosclerotic heart disease of [place] coronary artery without angina pectoris Plan: Continue low dose Aspirin 81 mg QD Follow-up with cardiology as scheduled (6) Pure hypercholesterolemia: Code(s): E78.00 - Pure hypercholesterolemia, unspecified Category: Medical Plan: As he has not had any follow up labs done in a while, will send him for some labs and also recheck his fasting lipids LEILANI Reinforced low cholesterol diet Continue Atorvastatin 40 mg QD Will recheck his fasting lipids again in 3 months for follow-up (7) Benign essential hypertension: Code(s): I10 - Essential (primary) hypertension Category: Medical Plan: Reinforced low sodium diet - goal is systolic BP of at least 130 mm or less Continue Metoprolol ER 50 mg QD, Furosemide 40 mg Q AM and Lisinopril 10 mg QD (8) Peripheral arterial disease: Code(s): I73.9 - Peripheral vascular disease, unspecified Category: Medical Plan: Follow up with vascular surgery (Dr. Mcclendon) as scheduled (9) Impaired fasting glucose: Code(s): R73.01 - Impaired fasting glucose Category: Medical Plan: Reinforced low calorie diet/exercise as tolerated His HgbA1c was normal at 5.4% when last checked in September 2022 (10) Vitamin D deficiency: Code(s): E55.9 - Vitamin D deficiency, unspecified Category: Medical Plan: Continue Vitamin D3 2000 units QD (11) Post herpetic neuralgia: Code(s): B02.29 - Other postherpetic nervous system involvement Category: Medical Plan: Continue Gabapentin 300 mg TID - Rx refilled States that his symptoms have improved a lot since his Gabapentin was increased from BID to TID last year (12) Dupuytren's contracture of left hand: Code(s): M72.0 - Palmar fascial fibromatosis [Dupuytren] Category: Medical Plan: He is now scheduled for Dupuytrens partial fasciectomy of the left hand under general anesthesia in September 2024 and will be seeing pulmonary next month for surgical clearance (13) Smoker: Code(s): F17.200 - Nicotine dependence, unspecified, uncomplicated Category: Social Hx Plan: Patient is counseled again on COMPLETE smoking cessation (14) Obesity (BMI 30-39.9): Code(s): E66.9 - Obesity, unspecified Category: Medical Plan: Reinforced diet; exercise and weight loss are not realistic due to patient's severe COPD and poor exercise/activity tolerance Plan As requested, flu vaccine given to the patient today Follow up in 3 months Orders: Orders Influenza [id number] Immunization 07/17/24 Z23 - Encounter for immunization Lipid Panel 07/17/24 E78.00 - Pure hypercholesterolemia, unspecified UA CC w/rflx Micro + Cult 07/17/24 R30.0 - Dysuria Vitamin D 25-OH Total 07/17/24 E55.9 - Vitamin D deficiency, unspecified Lipid Panel 3 Months E78.00 - Pure hypercholesterolemia, unspecified Complete Blood Count Auto Diff 07/17/24 D64.9 - Anemia, unspecified [facility] [place]. Panel Fast 07/17/24 E78.00 - Pure hypercholesterolemia, unspecified TSH reflex Free T4 07/17/24 E78.00 - Pure hypercholesterolemia, unspecified Hemoglobin A1c 07/17/24 R73.01 - Impaired fasting glucose Comprehensive [place]. Panel Fast 3 Months E78.00 - Pure hypercholesterolemia, unspecified
== END 2024-07-17 13:26 | disposition home or self-care (01) ==
PROVIDERS: PCP Internal Medicine; Visit Provider Internal Medicine
DX: I12.9 Hypertensive chronic kidney disease with stage 1 through stage 4 chronic kidney disease, or unspecified chronic kidney disease (principal); J44.9 Chronic obstructive pulmonary disease, unspecified; N18.31 Chronic kidney disease, stage 3a; I73.9 Peripheral vascular disease, unspecified; G47.33 Obstructive sleep apnea (adult) (pediatric); D75.1 Secondary polycythemia; I25.10 Atherosclerotic heart disease of native coronary artery without angina pectoris; E78.00 Pure hypercholesterolemia, unspecified; R73.01 Impaired fasting glucose; E55.9 Vitamin D deficiency, unspecified; B02.29 Other postherpetic nervous system involvement; M72.0 Palmar fascial fibromatosis [Dupuytren]

== ENCOUNTER → 2024-07-17 12:55 | Outpatient (BNVA) | payer MEDICARE, SELFPAY | PROVIDERS: PCP Internal Medicine; Visit Provider Internal Medicine | DX: Z23 Encounter for immunization (principal); J44.9 Chronic obstructive pulmonary disease, unspecified; G47.33 Obstructive sleep apnea (adult) (pediatric); I12.9 Hypertensive chronic kidney disease with stage 1 through stage 4 chronic kidney disease, or unspecified chronic kidney disease; N18.31 Chronic kidney disease, stage 3a; D75.1 Secondary polycythemia; I25.10 Atherosclerotic heart disease of native coronary artery without angina pectoris; E78.00 Pure hypercholesterolemia, unspecified; I73.9 Peripheral vascular disease, unspecified; R73.01 Impaired fasting glucose; E55.9 Vitamin D deficiency, unspecified; B02.29 Other postherpetic nervous system involvement; M72.0 Palmar fascial fibromatosis [Dupuytren]; E66.9 Obesity, unspecified; F17.200 Nicotine dependence, unspecified, uncomplicated; Z71.6 Tobacco abuse counseling | CPT/HCPCS: 90471; 90656; 96127; 99212 ==

== ENCOUNTER 2024-11-14 10:40 | Outpatient (REF) | payer MEDICARE, SELFPAY ==
--- NOTE | ~2024-11-14 | XR_ITS ---
EXAMINATION: XR FOOT 1-2 VIEWS LEFT HISTORY: R22.41 - Localized swelling, mass and lump, right lower limb COMPARISON: There are no prior studies available for comparison. FINDINGS: Three views of the left foot are submitted. Osseous mineralization is normal. There is no fracture or dislocation. There is moderate osteoarthritis of the interphalangeal joint of the great toe and osteophyte formation. The remaining joint spaces are preserved. There is a moderate-sized plantar calcaneal spur. The soft tissues are unremarkable. 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 Electronically signed by: Cachorro Zavala MD 11/14/2024 01:25 PM EDT RP
[2024-11-14 12:24] LABS: MANUAL DIFF FLAG NO
[2024-11-14 12:52] LABS: Basophils Absolute Auto 0.1 X10*3/uL (0.0-0.2); Basophils Percent Auto 0.7 % (0-2); Eosinophils Absolute Auto 0.2 X10*3/uL (0.0-0.4); Eosinophils Percent Auto 1.6 % (0-4); Hematocrit 43.3 % (42.0-52.0); Hemoglobin 14.3 g/dl (14.0-18.0); Imm Gran Abs Auto 0.05 X10*3/uL (0.00-0.03); Imm Gran Pct Auto 0.4 % (0.0-0.4); Lymphocytes Absolute Auto 2.2 X10*3/uL (1.2-4.9); Lymphocytes Percent Auto 18.4 % (20-40); Mean Corpuscular Hemoglobin 33.6 pg (27.0-33.0); Mean Corpuscular Volume 101.9 fL (80.0-98.0); Mean Platelet Volume 10.1 fL (9.4-12.4); Monocytes Absolute Auto 0.9 X10*3/uL (0.1-1.2); Monocytes Percent Auto 7.3 % (2-11); Neutrophils Absolute Auto 8.7 x10*3/uL (2.0-8.3); Neutrophils Percent Auto 71.6 % (45-73); Platelet Count 259 X10*3/uL (160-400); Red Blood Count 4.25 X10*6/uL (4.60-5.80); Red Cell Distribution Width 13.8 % (11.0-16.0); White Blood Count 12.2 X10*3/uL (4.8-10.8)
[2024-11-14 12:55] LABS: Appearance Urine Clear; Color Urine Yellow; Glucose Urine UA Negative (Negative); Leukocyte Esterase Urine Negative (Negative); Nitrite Urine Negative (Negative); PH 5.5 (5.0-9.0); Specific Gravity - Urine 1.015 (1.005-1.025); UMIC TRIGGER UACC YES; Urine Blood Moderate (2+) (Negative); Urine Ketones Negative (Negative); Urine Protein Negative (Neg-Trace)
[2024-11-14 12:56] LABS: Estimated Average Glucose 105 mg/dL; Hemoglobin A1c % 5.3 % (<6.0)
[2024-11-14 12:58] LABS: Bacteria Urine None Seen (None Seen); RBC Urine >20 /HPF (0-2); Squamous Epithelial Cell Urine 0-2 /HPF (0-2); WBC Urine 0-5 /HPF (0-5)
[2024-11-14 13:27] LABS: Alanine Aminotransferase 18 U/L (0-40); Albumin Level 3.9 g/dL (3.5-5.0); Alkaline Phosphatase 66 U/L (39-117); Anion Gap 11 (12-20); Aspartate Amino Transferase 18 U/L (5-37); Bilirubin Total 0.5 mg/dL (0.0-1.0); Blood Urea Nitrogen 55 mg/dL (9-16); Calcium 9.9 mg/dL (8.4-10.2); Carbon Dioxide 31 mmol/L (22-29); Chloride 102 mmol/L (96-108); Cholesterol 148 mg/dL (<200); Estimated Glomerular Filt Rate 44; Glucose Fasting 106 mg/dL (60-99); HDL Cholesterol 24 mg/dL (>40); LDL Cholesterol Calculated 99 mg/dL (<100); Potassium 4.4 mmol/L (3.3-5.1); Sodium 140 mmol/L (135-145); Total Protein 7.8 g/dL (6.5-8.0); Triglycerides 128 mg/dL (<150)
[2024-11-14 13:33] LABS: Uric Acid 12.5 mg/dL (3.4-7.0)
[2024-11-14 13:42] LABS: TSH reflex Free T4 1.23 uIU/mL (0.32-4.0); Vitamin D 25-OH Total 25.4 ng/mL (>30)
== END 2024-11-14 10:41 | disposition home or self-care (01) ==
LOC: HO.XRAY 10:40
PROVIDERS: PCP Internal Medicine
DX: M87.051 Idiopathic aseptic necrosis of right femur (principal); R22.41 Localized swelling, mass and lump, right lower limb; J44.9 Chronic obstructive pulmonary disease, unspecified; I12.9 Hypertensive chronic kidney disease with stage 1 through stage 4 chronic kidney disease, or unspecified chronic kidney disease; N18.30 Chronic kidney disease, stage 3 unspecified; M72.0 Palmar fascial fibromatosis [Dupuytren]; B02.29 Other postherpetic nervous system involvement; G47.33 Obstructive sleep apnea (adult) (pediatric); D64.9 Anemia, unspecified; E78.00 Pure hypercholesterolemia, unspecified; R73.01 Impaired fasting glucose; E55.9 Vitamin D deficiency, unspecified; F17.200 Nicotine dependence, unspecified, uncomplicated
CPT/HCPCS: 36415; 73620; 80053; 80061; 81001; 82306; 83036; 84443; 84550; 85025; 96127; 99212

== ENCOUNTER 2024-11-14 10:40 | Outpatient (AMB) | payer MEDICARE, SELFPAY ==
--- NOTE | 2024-11-14 10:50 | MHC.PC.OV ---
Vital Signs 11/14/24 10:52 Height 5 ft 2 in Weight 198 lb 2 oz BMI 36.2 BP 140/70 H Blood Pressure Location Lt brachial Position Sitting Pulse 80 Pulse Source Pulse Oximeter Temp 97.1 F Temp Source Temporal Artery Scan Pulse Oximetry (%) 94 Oxygen Delivery Method Nasal Cannula Intake Visit Reasons: [facility] 11/04 rt hip pain Intake Note: Patient is here for hospital discharge follow up. Patient was discharged from [facility] on 11/04/24. Rivet Catcher: Present Accompanied by: Son Allergies No Known Allergies Allergy (Verified 11/14/24 11:07) Medication List - Last Reconciled 11/14/24 by ZULMA Siddiqi albuterol sulfate 90 mcg/actuation 2 puffs inhalation Q4-6H PRN aspirin 81 mg PO DAILY atorvastatin 40 mg PO DAILY cholecalciferol (vitamin D3) 50 mcg PO DAILY folic acid 1 mg PO DAILY furosemide 40 mg PO DAILY gabapentin 300 mg PO TID 90 days ipratropium-albuterol 0.5 mg-3 mg(2.5 mg base)/3 mL 3 mL inhalation Q6H PRN lidocaine 4% (Lidocaine Pain Relief) 1 patch See Protocol transdermal DAILY lisinopril 10 mg PO DAILY 90 days metoprolol succinate ER 50 mg PO DAILY multivitamin 1 tab PO DAILY [NEBULIZER As directed] [PORTABLE OXYGEN CONCENTRATOR Use as directed] Tobacco use date assessed: 11/14/24 Fall risk assessment: 1 Fall in past year Last assessed Fall Risk: 11/14/24 Dental Screening Dental Screen Date: 11/14/24 Did you have a dental visit in the last 12 months?: No Did you have a dental problem in the last 6 months where you did not have access to dental care?: No Was dental information given to patient?: No HPI [facility] 11/04 rt hip pain HPI Details Patient is a 64-year-old male presenting for post hospital visit follow up. The first time meeting patient; he has significant PMH of severe COPD, Dupuytren's contracture of both hands, hypertension, MARLA, tobacco dependence, chronic kidney disease stage 3 osteochondritis of right hip, post herpetic neuralgia, PAD, CAD The patient was accompanied by his son The patient went to be sit ER for severe right hip pain. CT of the right hip showed avascular necrosis of the femoral head (hip bone tissue) Reports that right hip was extremely painful. He has appt with [facility] in 11/18/24 for hands Dupuytren's contracture of both hands and right hip 11/27/24. reports still smoking about 10 cigarettes a day-discussed with patient about smoking cessation, especially if he is planning on having surgery Reports that he has been smoking for about 50 years and been trying to cut down Reports that he wants to try chantix to see if he could stop smoking The patient is requesting a power lift chair to help him stand and that his BUILDING CONSTRUCTION ENGINEER recommended it The patient would also like more BUILDING CONSTRUCTION ENGINEER hours, reports that he is only getting 5 hours a week Reports that they will be getting blood work done today, uric acid level was added due left foot great toes joint swollen and pain to touch, discussed with the patient that this might be arthritis due to his history or might be gout Will prescribe tramadol of right hip pain short term The patient denies chest pain, reports that he also have sob especially with exertion, denies increase sob He denies dizziness or heart palpitation [facility] Medical History (Updated 11/14/24 @ 17:23 by ZULMA Siddiqi) Pure hypercholesterolemia Benign essential hypertension Obstructive sleep apnea Chronic respiratory failure with hypoxia Obesity (BMI 30-39.9) Chronic kidney disease (CKD), stage III (moderate) Impaired fasting glucose Coronary artery disease Severe chronic obstructive pulmonary disease History of back problems Post herpetic neuralgia Peripheral arterial disease Vitamin D deficiency HTN (hypertension) Sleep apnea COPD (chronic obstructive pulmonary disease) Smoker Secondary polycythemia Surgical History Recent surgical procedure on lower extremity History of prostate surgery Family History Father CVD (cardiovascular disease) Diabetes Hypertension Mother Diabetes Hypertension CVD (cardiovascular disease) Brother Obese Pneumonia Heart attack Sister Seizures Son Bipolar disorder Social History Household Members: Children Housing: House Do you presently have visiting nurse or other home services: No Alcohol intake: current Alcohol intake frequency: holidays/special occasions only Comment: pt refusing alarm Patient Tobacco Use Status: Current everyday Tobacco user Tobacco use type: Cigarette Cigarette Packs Per Day: 0.5 Cigarettes Per Day: 7 e-Cigarette/Vaping Use: Never Used Second Hand Smoke Exposure: Yes service: No Current occupational status: disabled Gender identity: Male Cognitive needs: Yes (cane) Hearing needs: No Vision needs: Yes (reading glasses) Questionnaire PHQ-9 Over the last 2 weeks, how often have you been bothered by any of the following problems? 1. Little interest or pleasure in doing things: not at all 2. Feeling down, depressed, or hopeless: not at all 3. Trouble falling or staying asleep, or sleeping too much: not at all 4. Feeling tired or having little energy: not at all 5. Poor appetite or overeating: not at all 6. Feeling bad about yourself - or that you are a failure or have let yourself or your family down: not at all 7. Trouble concentrating on things, such as reading the newspaper or watching television: not at all 8. Moving or speaking so slowly that other people could have noticed. Or the opposite - being so fidgety or restless that you have been moving around a lot more than usual: not at all 9. Thoughts that you would be better off or of hurting yourself in some way: not at all Total score: 0 Depression Screening Interpretation: Negative Depression Screening Done: Yes 73602 - PHQ-9 Billing: Yes Source: Developed by Drs. Cachorro Burns, Mayela Walter, Deng Andres and colleagues, with an educational ally from [employer]. Thrive Questionnaire Date Thrive assessed: 11/14/24 I am a: Patient What is your living situation today?: I have a steady place to live Within the past 12 months, did the food you bought not last and you didn't have the money to get more?: Never true Within the past 12 months, did you worry whether your food would run out before you got money to buy more?: Never true Do you have trouble paying for medicines?: No Do you have trouble getting transportation to medical appointments?: No Do you have trouble paying your heating and electricity bill?: No Do you have trouble taking care of your child, family member or friend?: No Do you have trouble with day-to-day activities such as bathing, preparing meals, shopping, managing finances, etc.?: No Are you currently unemployed and looking for a job?: No Are you interested in more education?: No Please select the resources that you would like help with: None Currently or been in a relationship where the following occur: No concerns reported THRIVE Score: 0 AUDIT C Alcohol Use Questionnaire (AUDIT-C) 1. How often do you have a drink containing alcohol?: Monthly or less 2. How many drinks containing alcohol do you have on a typical day when you are drinking?: 1 or 2 Total Score: 1 MACRINA-7 AMB Questionnaire MACRINA-7 Date MACRINA - 7 assessed: 11/14/24 Feeling nervous, anxious, or on edge: 0 = Not at all Not being able to stop or control worryin = Not at all Worrying too much about different things: 0 = Not at all Trouble relaxin = Not at all Being so restless that it is hard to sit still: 0 = Not at all Becoming easily annoyed or irritable: 0 = Not at all Feeling afraid as if something awful might happen: 0 = Not at all Total MACRINA-7 score (0-4 normal; 5-9 mild; 10-14 moderate; 15-21 severe): 0 Source: Developed by Drs. Cachorro Burns, Mayela Walter, Deng Andres and colleagues, with an educational ally from [employer]. MACRINA-7 Assessment Billing MACRINA-7 Assessment Tool: MACRINA-7 Assessment 85738 Review of Systems Const Denies headache(s) Eyes Denies loss of vision ENT Denies vertigo, Denies dizziness, Denies headache(s) and Denies sore throat Card Denies chest pain, Denies leg edema, Denies lightheadedness and Reports dyspnea on exertion (copd, oxygen dependent) Resp Reports cough (intermittent coughing, the patient is still smoking 10 cigarettes/day), Denies hemoptysis, Reports dyspnea on exertion (copd, oxygen dependent) and Denies wheezing GI Denies abdominal pain, Denies melena, Denies constipation, Denies diarrhea and Denies vomiting Denies dysuria, Denies urinary frequency and Denies urinary urgency Musc Reports arthralgias (right hip and left great toe ), Reports joint swelling (fingers and toes joints are puffy appearing), Denies numbness and Denies tingling Neuro Denies Abnormal speech present, Denies behavioral changes, Denies vertigo, Denies dizziness, Denies headache(s), Denies loss of vision, Denies memory loss, Denies numbness and Denies tingling Psych Denies anxiety, Denies behavioral changes, Denies depression, Denies memory loss and Denies panic attacks Lion/Lymph Denies easy bleeding and Denies easy bruising Aller/Immun Denies wheezing Physical exam (Primary Care) Vital Signs: Last Vital Signs Temp 97.1 F 11/14/24 10:52 Pulse 80 11/14/24 10:52 BP 140/70 H 11/14/24 10:52 Pulse Ox 94 11/14/24 10:52 Oxygen Delivery Method Nasal Cannula 11/14/24 10:52 BMI result Body Mass Index 36.2 Tobacco/Smoking Status: Tobacco use Status Tobacco use date assessed 11/14/24 11/14/24 11:00 Patient Tobacco Use Status Current everyday Tobacco 11/14/24 11:00 Tobacco use type Cigarette 11/14/24 11:00 e-Cigarette/Vaping Use Never Used 11/14/24 11:00 PHQ-9: PHQ-9 Score PHQ-9: Total score 0 11/14/24 11:14 Depression Screening Interpretation: Negative Thrive Assessment: Date of Thrive Assessment Date Thrive assessed 11/14/24 11/14/24 11:00 Currently or been in a relationship where the following occur: No concerns reported Const General: healthy appearing, no acute distress, alert and awake Nutritional Appearance: well nourished Orientation/consciousness: oriented to person, oriented to place and oriented to time HENMT Ears: TM's normal bilaterally General nose exam: Normal nasal mucous membranes and turbinates present Eyes Conjunctivae: conjunctivae normal Sclerae: sclerae normal Pupils: Equal, round and reactive pupils present Neck Neck: Yes no lymphadenopathy and Yes no JVD Thyroid: Thyroid normal Carotids: no bruits Resp Effort & Inspection: normal respiratory effort and not tachypneic Auscultation: no crackles, no rales, no rhonchi and no wheezes Cardio Rate: regular rate Rhythm: regular rhythm Heart sounds: no murmurs and normal S1 and S2 GI Palpation (GI): Soft to palpation, nontender, no hepatomegaly and no splenomegaly Auscultation: normal bowel sounds Skin General skin exam: no rashes or lesions noted and dry skin Neuro General: oriented to person, oriented to place and oriented to time Cranial nerves: Yes Equal, round and reactive pupils present Speech: No Abnormal speech present Gait exam (Neuro): Normal gait present Motor exam (neuro): no tremor noted Extrem Right upper extremity: full ROM Left upper extremity: full ROM Right lower extremity: full ROM, hip/thigh Details: tenderness (with movement and weight bearing) and foot Details: abnormal ROM of toe, edema and other (Right great toe swollen and painful to touch); no edema Left lower extremity: full ROM; no edema Psych Mental Status: mental status grossly normal Speech and movement: Normal speech and movement present Affect: normal affect Attitude: cooperative Thought process: Normal thought process present Coding Level of Care Code Est Pt Level 4 (09498) Diagnoses Avascular necrosis of right femur M87.051 Laterality: right Localized swelling of toe of right foot R22.41 Tobacco dependence F17.200 Severe chronic obstructive pulmonary disease J44.9 Additional Codes PHQ-9 - 85564 - PHQ-9 Billing: Yes ([id number]) MACRINA-7 Assessment Billing - MACRINA-7 Assessment Tool: MACRINA-7 Assessment 37972 ([id number]) Time Spent (min) 42 Assessment & Plan Assessment & Plan (1) AVN of femur: Code(s): M87.059 - Idiopathic aseptic necrosis of unspecified femur Category: Medical Qualifiers: Laterality: right Qualified Code(s): M87.051 - Idiopathic aseptic necrosis of right femur Plan: Patient went to [facility] ER for severe pain in right hip. CT of the right hip was completed, avascular necrosis of the femoral head noticed. Patient was referred to PT who recommend a walker for the patient. The patient also was given an orthopedic outpatient follow up appointment and [facility] (Dr. Levy). Patient is in office complaining of severe pain. Tramadol 50 mg b.i.d. was given short term for severe pain. The patient is requesting a power lift chair to help him stand and that his BUILDING CONSTRUCTION ENGINEER recommended it. Patient would also benefit from more BUILDING CONSTRUCTION ENGINEER hours. (2) Localized swelling of toe of right foot: Code(s): R22.41 - Localized swelling, mass and lump, right lower limb Category: Medical Plan: Patient is also complaining of right great toe pain. Uric acid was ordered that showed elevated uric acid. Colchicine was ordered (3) Tobacco dependence: Code(s): F17.200 - Nicotine dependence, unspecified, uncomplicated Category: Medical Plan: Discussed with patient about smoking cessation especially if there is plans for surgery. The patient is willing to try Chantix; this was ordered for the patient (4) Severe chronic obstructive pulmonary disease: Code(s): J44.9 - Chronic obstructive pulmonary disease, unspecified Category: Medical Plan: Patient has severe COPD and is oxygen dependent. This makes it extremely difficult for the patient to ambulate and assist with his ADL's. A power lift chair would benefit the patient to assist him standing up without being winded. Orders: Orders Uric Acid 11/14/24 R22.41 - Localized swelling, mass and lump, right lower limb XR foot LT 2V 11/14/24 R22.41 - Localized swelling, mass and lump, right lower limb Medications: New tramadol 50 mg PO BID 15 days 30 tabs 0RF M87.059 - Idiopathic aseptic necrosis of unspecified femur varenicline tartrate (Chantix Starting Month Box) PO PER PKG DIR 53 ea 0RF nicotine dependance [Power Lift Chair] As directed 1 ea 0RF B02.29 - Other postherpetic nervous system involvement, J44.9 - Chronic obstructive pulmonary disease, unspecified, M87.051 - Idiopathic aseptic necrosis of right femur, 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
[2024-11-14 10:52] VITALS: BP 140/70; PULSE 80; TEMP 36.2; O2SAT 94; BMI 36.2
== END 2024-11-14 11:41 | disposition home or self-care (01) ==
LOC: HO.HMCH 10:41
PROVIDERS: PCP Internal Medicine
DX: M87.051 Idiopathic aseptic necrosis of right femur (principal); R22.41 Localized swelling, mass and lump, right lower limb; F17.200 Nicotine dependence, unspecified, uncomplicated; J44.9 Chronic obstructive pulmonary disease, unspecified

== ENCOUNTER → 2024-11-14 12:36 | Outpatient (BNV) | payer MEDICARE, SELFPAY | PROVIDERS: PCP Internal Medicine; Visit Provider Radiology Diagnostic Radiology | DX: R22.42 Localized swelling, mass and lump, left lower limb (principal) | CPT/HCPCS: 73620 ==

== ENCOUNTER 2024-12-05 13:40 | Outpatient (REF) | payer MEDICARE, SELFPAY ==
[2024-12-05 15:35] LABS: Appearance Urine Clear; Color Urine Yellow; Glucose Urine UA Negative (Negative); Leukocyte Esterase Urine Negative (Negative); Nitrite Urine Negative (Negative); PH 5.5 (5.0-9.0); Urine Blood Negative (Negative); Urine Ketones Negative (Negative); Urine Protein Negative (Neg-Trace)
[2024-12-05 16:00] LABS: Uric Acid 10.6 mg/dL (3.4-7.0)
== END 2024-12-05 13:41 | disposition home or self-care (01) ==
LOC: HO.LAB 13:40
PROVIDERS: PCP Internal Medicine
DX: R30.0 Dysuria (principal); M10.9 Gout, unspecified
CPT/HCPCS: 36415; 81003; 84550

== ENCOUNTER 2024-12-06 12:16 | Outpatient (AMB) | payer MEDICARE, SELFPAY ==
[2024-12-06 12:50] VITALS: BP 124/68; PULSE 79; O2SAT 92; BMI 36.0
--- NOTE | 2024-12-06 12:50 | A.OFFPC_ITS ---
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: No Accompanied by: Self / Same As Patient Allergies No Known Allergies Allergy (Verified 12/06/24 18:03) Medication List - Last Reconciled 12/06/24 by Oswaldo Alvarez MD albuterol sulfate 90 mcg/actuation 2 puffs inhalation Q4-6H PRN allopurinol 100 mg PO DAILY 30 days aspirin 81 mg PO DAILY atorvastatin 40 mg PO DAILY cholecalciferol (vitamin D3) 50 mcg PO DAILY colchicine 1.2 mg (2 x 0.6 mg) PO ONCE folic acid 1 mg PO DAILY furosemide 40 mg PO DAILY gabapentin 300 mg PO TID 90 days ipratropium-albuterol 0.5 mg-3 mg(2.5 mg base)/3 mL 3 mL inhalation Q6H PRN lidocaine 4% (Lidocaine Pain Relief) 1 patch See Protocol transdermal DAILY [Lift Chair As directed] lisinopril 10 mg PO DAILY 90 days metoprolol succinate ER 50 mg PO DAILY multivitamin 1 tab PO DAILY [NEBULIZER As directed] [PORTABLE OXYGEN CONCENTRATOR Use as directed] tramadol 50 mg PO BID 15 days varenicline tartrate (Chantix Starting Month Box) PO PER PKG DIR Tobacco use date assessed: 12/06/24 Fall risk assessment: 2 + Falls in past year Last assessed Fall Risk: 12/06/24 Dental Screening Dental Screen Date: 12/06/24 Did you have a dental visit in the last 12 months?: No Did you have a dental problem in the last 6 months where you did not have access to dental care?: No Was dental information given to patient?: No HPI hyperlipidemia, HTN,COPD.IFG HPI Details Patient comes in today for his follow up visit for his COPD, hyperlipidemia and HTN States that he has been experiencing increased pain and swelling of his left big toe lately but this has improved somewhat since he was started on Allopurinol 100 mg but states that he was only dispensed 4 tablets and will need a new Rx if he is to continue on the medication He was also recently diagnosed with avascular necrosis of the right hip and is seeing orthopedics at [facility] for this He denies any headaches or dizziness Denies any chest pains, no increased SOB - he is on oxygen and states that he uses his inhalers as instructed regularly No nausea/vomiting, no abdominal pain No change in bowel habits noted Needs a couple of his Rx refilled He had his follow up labs done a couple of weeks ago - to discuss his results [facility] Medical History (Updated 12/06/24 @ 18:56 by Oswaldo Alvarez MD) Gout Pure hypercholesterolemia Benign essential hypertension Obstructive sleep apnea Chronic respiratory failure with hypoxia Obesity (BMI 30-39.9) Chronic kidney disease (CKD), stage III (moderate) Impaired fasting glucose Coronary artery disease Severe chronic obstructive pulmonary disease History of back problems Post herpetic neuralgia Peripheral arterial disease Vitamin D deficiency HTN (hypertension) Sleep apnea COPD (chronic obstructive pulmonary disease) Smoker Secondary polycythemia Surgical History Recent surgical procedure on lower extremity History of prostate surgery Family History Father CVD (cardiovascular disease) Diabetes Hypertension Mother Diabetes Hypertension CVD (cardiovascular disease) Brother Obese Pneumonia Heart attack Sister Seizures Son Bipolar disorder Social History Household Members: Children Housing: House Do you presently have visiting nurse or other home services: No Alcohol intake: current Alcohol intake frequency: holidays/special occasions only Comment: pt refusing alarm Patient Tobacco Use Status: Current everyday Tobacco user Tobacco use type: Cigarette Cigarette Packs Per Day: 0.5 Cigarettes Per Day: 7 e-Cigarette/Vaping Use: Never Used Second Hand Smoke Exposure: Yes service: No Current occupational status: disabled Gender identity: Male Cognitive needs: Yes (cane) Hearing needs: No Vision needs: Yes (reading glasses) Questionnaire PHQ-9 Over the last 2 weeks, how often have you been bothered by any of the following problems? 1. Little interest or pleasure in doing things: not at all 2. Feeling down, depressed, or hopeless: not at all 3. Trouble falling or staying asleep, or sleeping too much: not at all 4. Feeling tired or having little energy: not at all 5. Poor appetite or overeating: not at all 6. Feeling bad about yourself - or that you are a failure or have let yourself or your family down: not at all 7. Trouble concentrating on things, such as reading the newspaper or watching television: not at all 8. Moving or speaking so slowly that other people could have noticed. Or the opposite - being so fidgety or restless that you have been moving around a lot m ore than usual: not at all 9. Thoughts that you would be better off or of hurting yourself in some way: not at all Total score: 0 Depression Screening Interpretation: Negative Depression Screening Done: Yes 49720 - PHQ-9 Billing: Yes Source: Developed by Drs. Cachorro Burns, Mayela Walter, Deng Andres and colleagues, with an educational ally from [employer]. Thrive Questionnaire Date Thrive assessed: 12/06/24 I am a: Patient What is your living situation today?: I have a steady place to live Within the past 12 months, did the food you bought not last and you didn't have the money to get more?: Never true Within the past 12 months, did you worry whether your food would run out before you got money to buy more?: Never true Do you have trouble paying for medicines?: No Do you have trouble getting transportation to medical appointments?: No Do you have trouble paying your heating and electricity bill?: No Do you have trouble taking care of your child, family member or friend?: No Do you have trouble with day-to-day activities such as bathing, preparing meals, shopping, managing finances, etc.?: No Are you currently unemployed and looking for a job?: No Are you interested in more education?: No Please select the resources that you would like help with: None Currently or been in a relationship where the following occur: No concerns reported THRIVE Score: 0 AUDIT C Alcohol Use Questionnaire (AUDIT-C) 1. How often do you have a drink containing alcohol?: Monthly or less 2. How many drinks containing alcohol do you have on a typical day when you are drinking?: 1 or 2 Total Score: 1 Score Reviewed/Action Taken: Yes MACRINA-7 AMB Questionnaire MACRINA-7 Date MACRINA - 7 assessed: 12/06/24 Feeling nervous, anxious, or on edge: 0 = Not at all Not being able to stop or control worryin = Not at all Worrying too much about different things: 0 = Not at all Trouble relaxin = Not at all Being so restless that it is hard to sit still: 0 = Not at all Becoming easily annoyed or irritable: 0 = Not at all Feeling afraid as if something awful might happen: 0 = Not at all Total MACRINA-7 score (0-4 normal; 5-9 mild; 10-14 moderate; 15-21 severe): 0 Source: Developed by Drs. Cachorro Burns, Mayela Walter, Deng Andres and colleagues, with an educational ally from [employer]. MACRINA-7 Assessment Billing MACRINA-7 Assessment Tool: MACRINA-7 Assessment 53658 Review of Systems Const Denies chills, Reports fatigue, Denies fever(s) and Denies headache(s) ENT Denies dysphagia, Denies dizziness, Denies otalgia, Denies headache(s), Denies neck pain, Denies odynophagia and Denies sore throat Card Denies chest pain, Denies palpitations and Reports dyspnea on exertion Resp Denies chest congestion, Reports cough (on and off; coughs up scanty, thick whitish phlegm), Reports dyspnea on exertion and Denies wheezing GI Denies abdominal pain, Denies constipation, Denies dysphagia, Denies heartburn, Denies diarrhea, Denies nausea, Denies odynophagia and Denies vomiting Denies dysuria, Denies nocturia and Reports urinary frequency (takes diuretics daily) Musc Denies back pain, Reports arthralgias (increased in the right hip; on and off pain in the left big toe) and Denies neck pain Skin/Breast Denies rash Neuro Denies dizziness and Denies headache(s) Endo Reports fatigue and Denies palpitations Aller/Immun Denies wheezing Physical exam (Primary Care) Vital Signs: Last Vital Signs Pulse 79 12/06/24 12:50 BP 124/68 12/06/24 12:50 Pulse Ox 92 12/06/24 12:50 Oxygen Delivery Method Room Air 12/06/24 12:50 BMI result Body Mass Index 36.0 Tobacco/Smoking Status: Tobacco use Status Tobacco use date assessed 12/06/24 12/06/24 12:56 Patient Tobacco Use Status Current everyday Tobacco 12/06/24 12:56 Tobacco use type Cigarette 12/06/24 12:56 e-Cigarette/Vaping Use Never Used 12/06/24 12:56 PHQ-9: PHQ-9 Score PHQ-9: Total score 0 12/06/24 13:19 Depression Screening Interpretation: Negative Thrive Assessment: Date of Thrive Assessment Date Thrive assessed 12/06/24 12/06/24 12:56 Currently or been in a relationship where the following occur: No concerns reported Const General: no acute distress and alert HENMT Ears: TM's normal bilaterally and EAC's normal Throat: Yes posterior oropharynx normal and Yes tonsils normal Neck Neck: Yes supple and No lymphadenopathy Thyroid: Thyroid normal Resp Auscultation: no crackles, no rales, no wheezes and diminished lung sounds (significantly) bilateral Cardio Rate: regular rate Rhythm: regular rhythm Heart sounds: no murmurs GI Palpation (GI): Soft to palpation and nontender Auscultation: normal bowel sounds General: Yes no CVA tenderness Back/Spine/Pelvis Back: no CVA tenderness Thoracic/Lumbar Spine: No lumbar spinal tenderness Skin Rashes: no rashes Extrem General: No clubbing, No cyanosis and Yes pedal edema (1+ bilaterally) Right lower extremity: hip/thigh Details: tenderness Location: of the hip Left lower extremity: foot Details: tenderness Location: of the great toe Location: at the MTP joint Results Reviewed Results Reviewed: Laboratory Tests 09/18/23 11/14/24 12/05/24 10:44 12:23 13:50 WBC 12.2 H Hgb 14.3 Hct 43.3 Plt Count 259 D Sodium 140 Potassium 4.4 Creatinine 1.45 H 1.59 H Estimated GFR 49 44 Fasting Glucose 106 H Hemoglobin A1c % 5.3 Uric Acid Calcium 9.9 AST 18 ALT 18 Triglycerides 128 Cholesterol 148 LDL Cholesterol, Calc 99 HDL Cholesterol 24 L 25-OH Vitamin D Total 25.4 L TSH 1.23 Ur Specific [place] 1.010 Urine Protein Negative Urine Glucose (UA) Negative Urine Blood Negative Urine Nitrite Negative Ur Leukocyte Esterase Negative 12/05/24 13:52 WBC Hgb Hct Plt Count Sodium Potassium Creatinine Estimated GFR Fasting Glucose Hemoglobin A1c % Uric Acid 10.6 H Calcium AST ALT Triglycerides Cholesterol LDL Cholesterol, Calc HDL Cholesterol 25-OH Vitamin D Total TSH Ur Specific [place] Urine Protein Urine Glucose (UA) Urine Blood Urine Nitrite Ur Leukocyte Esterase Coding Level of Care Code Est Pt Level 4 (03304) Complex EM visit Add On G2211 Diagnoses Severe chronic obstructive pulmonary disease J44.9 Obstructive sleep apnea G47.33 Stage 3a chronic kidney disease N18.31 Chronic kidney disease stage 3 subtype: stage 3a (GFR 45-59) Polycythemia D75.1 Coronary artery disease involving [place] coronary artery of [place] heart without angina pectoris I25.10 Coronary Disease-Associated Artery/Lesion type: [place] artery [place] vs. transplanted heart: [place] heart Associated angina: without angina Pure hypercholesterolemia E78.00 Benign essential hypertension I10 Peripheral arterial disease I73.9 Impaired fasting glucose R73.01 Vitamin D deficiency E55.9 Idiopathic gout involving toe of left foot, unspecified chronicity M10.072 Gout site: toe Gout etiology: idiopathic Chronicity: unspecified Laterality: left Post herpetic neuralgia B02.29 Avascular necrosis of bone of right hip M87.051 Dupuytren's contracture of left hand M72.0 Smoker F17.200 Obesity (BMI 30-39.9) E66.9 Additional Codes MACRINA-7 Assessment Billing - MACRINA-7 Assessment Tool: MACRINA-7 Assessment 93679 ([id number]) PHQ-9 - 45218 - PHQ-9 Billing: Yes ([id number]) Assessment & Plan Assessment & Plan (1) Severe chronic obstructive pulmonary disease: Code(s): J44.9 - Chronic obstructive pulmonary disease, unspecified Category: Medical Plan: Patient uses supplemental oxygen as needed to help maintain his O2 saturation between 88-93% As he has not had any symptomatic relief/benefit from hand held inhalers in the past due to decreased inspiratory capacity, per pulmonary, he is currently only on DuoNeb via nebulizer 3 times a day as needed He used to follow-up with pulmonary regularly but has not seen them in a while (last visit was in April 2020) and he was referred back to pulmonary last year for regular follow up but it looks like he has not been seen (2) Obstructive sleep apnea: Comment: Repeat sleep study with CPAP titration done in 2018 showed that he recquires CPAP with 12-13 cm pressure Code(s): G47.33 - Obstructive sleep apnea (adult) (pediatric) Category: Medical Plan: Continue using his CPAP device when sleeping at night (3) Chronic kidney disease (CKD), stage III (moderate): Code(s): N18.30 - Chronic kidney disease, stage 3 unspecified Category: Medical Qualifiers: Chronic kidney disease stage 3 subtype: stage 3a (GFR 45-59) Qualified Code(s): N18.31 - Chronic kidney disease, stage 3a Plan: Results of his labs done a couple of weeks ago reviewed and discussed with patient We will continue to monitor his labs and renal function regularly Follow up with nephrology as scheduled (4) Polycythemia: Code(s): D75.1 - Secondary polycythemia Category: Medical Plan: This improved with regular phlebotomy previously His most recent H/H is at 14.3/43.3 on his labs done a couple of weeks ago He has secondary polycythemia (due to his COPD and hypoxia) and was getting regular phlebotomy for Tx but he was lost to follow up for most of the year He has been instructed to follow up again with hematology regularly (5) Coronary artery disease: Code(s): I25.10 - Atherosclerotic heart disease of [place] coronary artery without angina pectoris Category: Medical Qualifiers: Coronary Disease-Associated Artery/Lesion type: [place] artery [place] vs. transplanted heart: [place] heart Associated angina: without angina Qualified Code(s): I25.10 - Atherosclerotic heart disease of [place] coronary artery without angina pectoris Plan: Continue low dose Aspirin 81 mg QD Follow-up with cardiology as scheduled (6) Pure hypercholesterolemia: Code(s): E78.00 - Pure hypercholesterolemia, unspecified Category: Medical Plan: Results of his labs done a couple of weeks ago reviewed and discussed with patient - he is advised that his cholesterol levels have increased from previous Reinforced low cholesterol diet Continue Atorvastatin 40 mg QD Will recheck his labs and fasting lipids again in 3 months for follow-up (7) Benign essential hypertension: Code(s): I10 - Essential (primary) hypertension Category: Medical Plan: Reinforced low sodium diet - goal is systolic BP of at least 130 mm or less Continue Metoprolol ER 50 mg QD, Furosemide 40 mg Q AM and Lisinopril 10 mg QD (8) Peripheral arterial disease: Code(s): I73.9 - Peripheral vascular disease, unspecified Category: Medical Plan: Follow up with vascular surgery (Dr. Mcclendon) as scheduled (9) Impaired fasting glucose: Code(s): R73.01 - Impaired fasting glucose Category: Medical Plan: His HgbA1c was normal at 5.3% on his labs done a couple of weeks ago Reinforced low calorie diet/low carb diet; exercise as tolerated (10) Vitamin D deficiency: Code(s): E55.9 - Vitamin D deficiency, unspecified Category: Medical Plan: Continue Vitamin D3 2000 units QD (11) Gout: Code(s): M10.9 - Gout, unspecified Category: Medical Qualifiers: Gout site: toe Gout etiology: idiopathic Chronicity: unspecified Laterality: left Qualified Code(s): M10.072 - Idiopathic gout, left ankle and foot Plan: His serum uric acid level was elevated at 12.5 mg/dl last month and is now at 10.6 mg/dl on his most recent labs Discussed low purine diet Continue Allopurinol 100 mg QD - Rx refilled Will have patient recheck his labs and serum uric acid level in 4 months (12) Post herpetic neuralgia: Code(s): B02.29 - Other postherpetic nervous system involvement Category: Medical Plan: Continue Gabapentin 300 mg TID - Rx refilled States that his symptoms have improved a lot since his Gabapentin was increased from BID to TID last year (13) Avascular necrosis of bone of right hip: Code(s): M87.051 - Idiopathic aseptic necrosis of right femur Category: Medical Plan: This was first seen on right hip MRI in 2021 A more recent right hip CT done at the ER at [facility] revealed similar findings Follow up with orthopedics ([facility]) as scheduled (14) Dupuytren's contracture of left hand: Code(s): M72.0 - Palmar fascial fibromatosis [Dupuytren] Category: Medical Plan: He underwent Dupuytrens partial fasciectomy of the left hand under general anesthesia in September 2024 Follow up with orthopedics at [facility] as scheduled (15) Smoker: Code(s): F17.200 - Nicotine dependence, unspecified, uncomplicated Category: Social Hx Plan: Patient is counseled again on COMPLETE smoking cessation (16) Obesity (BMI 30-39.9): Code(s): E66.9 - Obesity, unspecified Category: Medical Plan: Reinforced diet; exercise and weight loss are not realistic due to patient's severe COPD and poor exercise/activity tolerance Plan Follow up in 4 months Orders: Orders TSH reflex Free T4 4 Months E78.00 - Pure hypercholesterolemia, unspecified UA CC w/rflx Micro + Cult 4 Months R30.0 - Dysuria Vitamin D 25-OH Total 4 Months E55.9 - Vitamin D deficiency, unspecified Complete Blood Count Auto Diff 4 Months D64.9 - Anemia, unspecified Lipid Panel 4 Months E78.00 - Pure hypercholesterolemia, unspecified Comprehensive Bruning. Panel Fast 4 Months E78.00 - Pure hypercholesterolemia, unspecified Microalbumin, Random (w Creat) 4 Months E11.9 - Type 2 diabetes mellitus without complications Uric Acid 4 Months M10.9 - Gout, unspecified Medications: New allopurinol 100 mg PO DAILY 30 days 30 tabs 3RF Refilled metoprolol succinate ER 50 mg PO DAILY 90 tabs 3RF atorvastatin 40 mg PO DAILY 90 tabs 1RF
== END 2024-12-06 13:29 | disposition home or self-care (01) ==
LOC: HO.HMCH 12:16
PROVIDERS: PCP Internal Medicine; Visit Provider Internal Medicine
DX: J44.9 Chronic obstructive pulmonary disease, unspecified (principal); G47.33 Obstructive sleep apnea (adult) (pediatric); N18.31 Chronic kidney disease, stage 3a; D75.1 Secondary polycythemia; I25.10 Atherosclerotic heart disease of native coronary artery without angina pectoris; E78.00 Pure hypercholesterolemia, unspecified; I10 Essential (primary) hypertension; I73.9 Peripheral vascular disease, unspecified; R73.01 Impaired fasting glucose; E55.9 Vitamin D deficiency, unspecified; M10.072 Idiopathic gout, left ankle and foot; M87.051 Idiopathic aseptic necrosis of right femur; B02.29 Other postherpetic nervous system involvement; M72.0 Palmar fascial fibromatosis [Dupuytren]; F17.200 Nicotine dependence, unspecified, uncomplicated; E66.9 Obesity, unspecified

== ENCOUNTER → 2024-12-06 12:16 | Outpatient (BNVA) | payer MEDICARE, SELFPAY | PROVIDERS: PCP Internal Medicine; Visit Provider Internal Medicine | DX: E78.00 Pure hypercholesterolemia, unspecified (principal); J44.9 Chronic obstructive pulmonary disease, unspecified; G47.33 Obstructive sleep apnea (adult) (pediatric); D75.1 Secondary polycythemia; I25.10 Atherosclerotic heart disease of native coronary artery without angina pectoris; I12.9 Hypertensive chronic kidney disease with stage 1 through stage 4 chronic kidney disease, or unspecified chronic kidney disease; N18.31 Chronic kidney disease, stage 3a; D63.1 Anemia in chronic kidney disease; I73.9 Peripheral vascular disease, unspecified; R73.01 Impaired fasting glucose; E55.9 Vitamin D deficiency, unspecified; M10.072 Idiopathic gout, left ankle and foot; B02.29 Other postherpetic nervous system involvement; M87.051 Idiopathic aseptic necrosis of right femur; M72.0 Palmar fascial fibromatosis [Dupuytren]; E66.9 Obesity, unspecified; M10.9 Gout, unspecified; F17.210 Nicotine dependence, cigarettes, uncomplicated; Z68.36 Body mass index [BMI] 36.0-36.9, adult | CPT/HCPCS: 96127; 99212 ==

== ENCOUNTER 2025-01-21 09:50 | Outpatient (AMB) | payer MEDICARE, SELFPAY ==
[2025-01-21 09:53] VITALS: BP 126/64; PULSE 102; O2SAT 90; BMI 36.2
--- NOTE | 2025-01-21 09:53 | MHC.PC.OV ---
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 Required: No Accompanied by: Self / Same As Patient Allergies No Known Allergies Allergy (Verified 01/21/25 10:44) Medication List - Last Reconciled 01/21/25 by Oswaldo Alvarez MD albuterol sulfate 90 mcg/actuation 2 puffs inhalation Q4-6H PRN allopurinol 100 mg PO DAILY 30 days aspirin 81 mg PO DAILY atorvastatin 40 mg PO DAILY cholecalciferol (vitamin D3) 50 mcg PO DAILY colchicine 1.2 mg (2 x 0.6 mg) PO ONCE folic acid 1 mg PO DAILY furosemide 40 mg PO DAILY gabapentin 300 mg PO TID 90 days ipratropium-albuterol 0.5 mg-3 mg(2.5 mg base)/3 mL 3 mL inhalation Q6H PRN lidocaine 4% (Lidocaine Pain Relief) 1 patch See Protocol transdermal DAILY [Lift Chair As directed] lisinopril 10 mg PO DAILY 90 days metoprolol succinate ER 50 mg PO DAILY multivitamin 1 tab PO DAILY [NEBULIZER As directed] [PORTABLE OXYGEN CONCENTRATOR Use as directed] tramadol 50 mg PO BID 15 days varenicline tartrate (Chantix Starting Month Box) PO PER PKG DIR Tobacco use date assessed: 01/21/25 Fall risk assessment: No Falls in past year Last assessed Fall Risk: 01/21/25 Dental Screening Dental Screen Date: 01/21/25 Did you have a dental visit in the last 12 months?: No Did you have a dental problem in the last 6 months where you did not have access to dental care?: No Was dental information given to patient?: No HPI gout/ 3 month f/u HPI Details Patient comes in today complaining of persistent increased pain and swelling of his left big toe for a couple of weeks now States that he has been taking all of his current meds as prescribed but they do not seem to be helping with his left big toe pain or swelling He would also like further clarification on what foods or drinks he should be avoiding so as not to aggravate his gout any further He denies any fever, headaches or dizziness Denies any chest pains, no increased SOB No nausea/vomiting, no abdominal pain No change in bowel habits noted COUNTS INCLUDE 234 BEDS AT [facility] Medical History Gout Pure hypercholesterolemia Benign essential hypertension Obstructive sleep apnea Chronic respiratory failure with hypoxia Obesity (BMI 30-39.9) Chronic kidney disease (CKD), stage III (moderate) Impaired fasting glucose Coronary artery disease Severe chronic obstructive pulmonary disease History of back problems Post herpetic neuralgia Peripheral arterial disease Vitamin D deficiency HTN (hypertension) Sleep apnea COPD (chronic obstructive pulmonary disease) Smoker Secondary polycythemia Surgical History Recent surgical procedure on lower extremity History of prostate surgery Family History Father CVD (cardiovascular disease) Diabetes Hypertension Mother Diabetes Hypertension CVD (cardiovascular disease) Brother Obese Pneumonia Heart attack Sister Seizures Son Bipolar disorder Social History Household Members: Children Housing: House Do you presently have visiting nurse or other home services: No Alcohol intake: current Alcohol intake frequency: holidays/special occasions only Comment: pt refusing alarm Patient Tobacco Use Status: Current everyday Tobacco user Tobacco use type: Cigarette Cigarette Packs Per Day: 0.5 Cigarettes Per Day: 7 e-Cigarette/Vaping Use: Never Used Second Hand Smoke Exposure: Yes service: No Current occupational status: disabled Gender identity: Male Cognitive needs: Yes (cane) Hearing needs: No Vision needs: Yes (reading glasses) Questionnaire PHQ-9 Over the last 2 weeks, how often have you been bothered by any of the following problems? 1. Little interest or pleasure in doing things: more than half the days 2. Feeling down, depressed, or hopeless: not at all 3. Trouble falling or staying asleep, or sleeping too much: more than half the days 4. Feeling tired or having little energy: more than half the days 5. Poor appetite or overeating: not at all 6. Feeling bad about yourself - or that you are a failure or have let yourself or your family down: not at all 7. Trouble concentrating on things, such as reading the newspaper or watching television: not at all 8. Moving or speaking so slowly that other people could have noticed. Or the opposite - being so fidgety or restless that you have been moving around a lot more than usual: more than half the days 9. Thoughts that you would be better off or of hurting yourself in some way: not at all Total score: 8 Depression Screening Interpretation: Positive Depression Screening Follow-up: Follow-up Visit Requested Depression Screening Done: Yes 38416 - PHQ-9 Billing: Yes Source: Developed by Drs. Cachorro Burns, Mayela Walter, Deng Andres and colleagues, with an educational ally from [employer] Thrive Questionnaire Date Thrive assessed: 01/21/25 I am a: Patient What is your living situation today?: I have a steady place to live Within the past 12 months, did the food you bought not last and you didn't have the money to get more?: Sometimes True Within the past 12 months, did you worry whether your food would run out before you got money to buy more?: Sometimes True Do you have trouble paying for medicines?: No Do you have trouble getting transportation to medical appointments?: Yes Do you have trouble paying your heating and electricity bill?: No Do you have trouble taking care of your child, family member or friend?: No Do you have trouble with day-to-day activities such as bathing, preparing meals, shopping, managing finances, etc.?: Yes Are you currently unemployed and looking for a job?: Yes Are you interested in more education?: No Please select the resources that you would like help with: None Currently or been in a relationship where the following occur: No concerns reported THRIVE Score: 3 AUDIT C Alcohol Use Questionnaire (AUDIT-C) 1. How often do you have a drink containing alcohol?: Never 3. How often do you have six or more drinks on one occasion?: Never Total Score: 0 Score Reviewed/Action Taken: Yes MACRINA-7 AMB Questionnaire MACRIAN-7 Date MACRINA - 7 assessed: 01/21/25 Feeling nervous, anxious, or on edge: 2 = More than half the days Not being able to stop or control worryin = Not at all Worrying too much about different things: 0 = Not at all Trouble relaxin = Not at all Being so restless that it is hard to sit still: 0 = Not at all Becoming easily annoyed or irritable: 0 = Not at all Feeling afraid as if something awful might happen: 0 = Not at all Total MACRINA-7 score (0-4 normal; 5-9 mild; 10-14 moderate; 15-21 severe): 2 Source: Developed by Drs. Cachorro Burns, Mayela Walter, Deng Andres and colleagues, with an educational ally from [employer] Review of Systems Const Denies chills, Reports difficulty sleeping, Reports fatigue, Denies fever(s) and Denies headache(s) ENT Denies dysphagia, Denies dizziness, Denies otalgia, Denies headache(s), Denies neck pain, Denies odynophagia and Denies sore throat Card Denies chest pain, Denies palpitations and Reports dyspnea on exertion Resp Denies chest congestion, Reports cough (on and off; coughs up scanty, thick whitish phlegm), Reports dyspnea on exertion and Denies wheezing GI Denies abdominal pain, Denies constipation, Denies dysphagia, Denies heartburn, Denies diarrhea, Denies nausea, Denies odynophagia and Denies vomiting Denies dysuria, Denies nocturia and Reports urinary frequency (takes diuretics daily) Musc Denies back pain, Reports arthralgias (in the right hip; increased pain and swelling of the left big toe) and Denies neck pain Skin/Breast Denies rash Neuro Denies dizziness and Denies headache(s) Endo Reports fatigue and Denies palpitations Aller/Immun Denies wheezing Physical exam (Primary Care) Vital Signs: Last Vital Signs Pulse 102 H 01/21/25 09:53 BP 126/64 01/21/25 09:53 Pulse Ox 90 L 01/21/25 09:53 Oxygen Delivery Method Nasal Cannula 01/21/25 09:53 Oxygen Flow Rate 2 01/21/25 09:53 BMI result Body Mass Index 36.2 Tobacco/Smoking Status: Tobacco use Status Tobacco use date assessed 01/21/25 01/21/25 10:02 Patient Tobacco Use Status Current everyday Tobacco 01/21/25 10:02 Tobacco use type Cigarette 01/21/25 10:02 e-Cigarette/Vaping Use Never Used 01/21/25 10:02 PHQ-9: PHQ-9 Score PHQ-9: Total score 8 01/21/25 11:02 Depression Screening Interpretation: Positive Depression Screening Follow-up: Follow-up Visit Requested Thrive Assessment: Date of Thrive Assessment Date Thrive assessed 01/21/25 01/21/25 10:02 Currently or been in a relationship where the following occur: No concerns reported Const General: no acute distress and alert HENMT Ears: TM's normal bilaterally and EAC's normal Throat: Yes posterior oropharynx normal and Yes tonsils normal Neck Neck: Yes supple and No lymphadenopathy Thyroid: Thyroid normal Resp Auscultation: no crackles, no rales, no wheezes and diminished lung sounds (significantly) bilateral Cardio Rate: regular rate Rhythm: regular rhythm Heart sounds: no murmurs GI Palpation (GI): Soft to palpation and nontender Auscultation: normal bowel sounds General: Yes no CVA tenderness Back/Spine/Pelvis Back: no CVA tenderness Thoracic/Lumbar Spine: No lumbar spinal tenderness Skin Rashes: no rashes Extrem General: No clubbing, No cyanosis and Yes pedal edema (1+ bilaterally) Right lower extremity: hip/thigh Details: tenderness Location: of the hip Left lower extremity: foot Details: tenderness Location: of the great toe Location: at the MTP joint and edema Location: of the great toe Location: along the entire digit Results Reviewed Results Reviewed: Laboratory Tests 12/05/24 13:52 Uric Acid 10.6 H Coding Level of Care Code Est Pt Level 4 (13386) Diagnoses Idiopathic gout involving toe of left foot, unspecified chronicity M10.072 Chronicity: unspecified Gout etiology: idiopathic Gout site: toe Laterality: left Stage 3a chronic kidney disease N18.31 Chronic kidney disease stage 3 subtype: stage 3a (GFR 45-59) Severe chronic obstructive pulmonary disease J44.9 Obstructive sleep apnea G47.33 Smoker F17.200 Obesity (BMI 30-39.9) E66.9 Additional Codes PHQ-9 - 09398 - PHQ-9 Billing: Yes ([id number]) Assessment & Plan Assessment & Plan (1) Gout: Code(s): M10.9 - Gout, unspecified Category: Medical Qualifiers: Chronicity: unspecified Gout etiology: idiopathic Gout site: toe Laterality: left Qualified Code(s): M10.072 - Idiopathic gout, left ankle and foot Plan: Reinforced low purine diet - low purine diet info sheet provided to and discussed with patient His serum uric acid level was still elevated at 10.6 when it was last checked a month ago Will increase his Allopurinol up to 300 mg QD Will start him as well on oral Prednisone taper over the next 7 to 8 days - start at 40 mg QD and decrease by 10 mg every 2 days until Rx is tapered off Continue Colchicine 0.6 mg 2 tablets QD PRN Will have patient recheck some labs in 1 week for follow up - to include his GFR and serum creatinine Will refer him as well to rheumatology for further evaluation and management (2) Chronic kidney disease (CKD), stage III (moderate): Code(s): N18.30 - Chronic kidney disease, stage 3 unspecified Category: Medical Qualifiers: Chronic kidney disease stage 3 subtype: stage 3a (GFR 45-59) Qualified Code(s): N18.31 - Chronic kidney disease, stage 3a Plan: Will have patient recheck his labs in 1 week to monitor his renal function since we are increasing the dose of his Allopurinol Follow up with nephrology as scheduled (3) Severe chronic obstructive pulmonary disease: Code(s): J44.9 - Chronic obstructive pulmonary disease, unspecified Category: Medical Plan: Patient uses supplemental oxygen as needed to help maintain his O2 saturation between 88-93% As he has not had any symptomatic relief/benefit from hand held inhalers in the past due to decreased inspiratory capacity, per pulmonary, he is currently only on DuoNeb via nebulizer 3 times a day as needed He used to follow-up with pulmonary regularly but has not seen them in a while (last visit was in April 2020); he was referred back to pulmonary last year for routine follow up but it looks like he has not been seen (4) Obstructive sleep apnea: Comment: Repeat sleep study with CPAP titration done in 2019 showed that he recquires CPAP with 12-13 cm pressure Code(s): G47.33 - Obstructive sleep apnea (adult) (pediatric) Category: Medical Plan: Continue using his CPAP device when sleeping at night (5) Smoker: Code(s): F17.200 - Nicotine dependence, unspecified, uncomplicated Category: Social Hx Plan: Patient is counseled again on COMPLETE smoking cessation (6) Obesity (BMI 30-39.9): Code(s): E66.9 - Obesity, unspecified Category: Medical Plan: Reinforced diet; exercise and weight loss are not realistic due to patient's severe COPD and poor exercise/activity tolerance Plan To return as scheduled in April 2025 for his next annual physical examination Orders: Orders Erythrocyte Sedimentation Rate 1 Week M10.072 - Idiopathic gout, left ankle and foot, M79.7 - Fibromyalgia Comprehensive Met. Panel 1 Week M10.072 - Idiopathic gout, left ankle and foot Complete Blood Count Auto Diff 1 Week D64.9 - Anemia, unspecified, M10.072 - Idiopathic gout, left ankle and foot C Reactive Protein 1 Week M10.072 - Idiopathic gout, left ankle and foot Uric Acid 1 Week M10.9 - Gout, unspecified Referrals Rheumatology Referral M10.9 - Gout, unspecified Medications: New prednisone 4 tablets x 2 days, then 3 tablets x 2 days, then 2 tablets x 2 days, then 1 tablet x 2 days 8 days 20 tabs 0RF J45.901 - Unspecified asthma with (acute) exacerbation, M25.50 - Pain in unspecified joint Changed From allopurinol 100 mg PO DAILY 30 days 30 tabs 3RF To allopurinol 300 mg PO DAILY 30 days 30 tabs 2RF
== END 2025-01-21 11:00 | disposition home or self-care (01) ==
LOC: HO.HMCH 09:51
PROVIDERS: PCP Internal Medicine; Visit Provider Internal Medicine
DX: M10.072 Idiopathic gout, left ankle and foot (principal); N18.31 Chronic kidney disease, stage 3a; J44.9 Chronic obstructive pulmonary disease, unspecified; G47.33 Obstructive sleep apnea (adult) (pediatric); F17.200 Nicotine dependence, unspecified, uncomplicated; E66.9 Obesity, unspecified

== ENCOUNTER → 2025-01-21 09:50 | Outpatient (BNVA) | payer MEDICARE, SELFPAY | PROVIDERS: PCP Internal Medicine; Visit Provider Internal Medicine | DX: M10.072 Idiopathic gout, left ankle and foot (principal); N18.31 Chronic kidney disease, stage 3a; J44.9 Chronic obstructive pulmonary disease, unspecified; G47.33 Obstructive sleep apnea (adult) (pediatric); E66.9 Obesity, unspecified; Z68.36 Body mass index [BMI] 36.0-36.9, adult; F17.200 Nicotine dependence, unspecified, uncomplicated; Z71.6 Tobacco abuse counseling; Z71.3 Dietary counseling and surveillance | CPT/HCPCS: 96127; 99212 ==

== ENCOUNTER 2025-02-17 15:03 | Outpatient (AMB) | payer MEDICARE, SELFPAY ==
--- NOTE | 2025-02-17 15:08 | MHC.PC.OV ---
Vital Signs 02/17/25 15:10 02/17/25 15:54 Height 5 ft 2 in Weight 194 lb 6 oz BMI 35.5 BP 140/62 H 106/62 Blood Pressure Location Lt brachial Lt brachial Position Sitting Sitting Pulse 79 Pulse Source Pulse Oximeter Temp 96.9 F Temp Source Temporal Artery Scan Pulse Oximetry (%) 96 Oxygen Delivery Method Nasal Cannula Intake Visit Reasons: [facility] 02/11 Throat infection and toe amputation Intake Note: Patient is here for hospital discharge follow up. Patient was discharged from [facility] on 02/11/25. Ream Cutter Required: No Returned Goods Repairer: Not Required per policy Accompanied by: Self / Same As Patient Allergies No Known Allergies Allergy (Verified 02/17/25 15:26) Tobacco use date assessed: 02/17/25 Fall risk assessment: No Falls in past year Last assessed Fall Risk: 02/17/25 Dental Screening Dental Screen Date: 01/21/25 HPI [facility] 02/11 Throat infection and toe amputation HPI Details The patient is a 65-year-old male presenting post hospital follow up for Right great toe amputation Significant medical history of PVD, HTN, HLD, COPD on home O2, CKD stage 3, peripheral neuropathy and vascular necrosis of the right hip. Patient presented to hospital with left great to infection with osteomyelitis and was empirically treated with vancomycin and ceftriaxone before undergone L1 amputation. Hospitalization was complicated by urine retention for which Marcus catheter needed to be placed and was started on tamsulosin. Plans for outpatient follow up at [facility]. Marcus catheter still in place. Plans for the patient to follow up with vascular surgeon as well. The patient is getting visiting nurse 3 times a week. Who called about the patient low blood pressure and that the patient was not drinking enough fluids. His Lasix was placed on hold for now. 106/62 left arm, he has a catheter in. left foot great toe ambuation due to infection and osteomyelitis reports taht he thinks that was his goat that cause he toes to swell and rub again each other. COUNTS INCLUDE 234 BEDS AT THE [facility] Medical History Gout Pure hypercholesterolemia Benign essential hypertension Obstructive sleep apnea Chronic respiratory failure with hypoxia Obesity (BMI 30-39.9) Chronic kidney disease (CKD), stage III (moderate) Impaired fasting glucose Coronary artery disease Severe chronic obstructive pulmonary disease History of back problems Post herpetic neuralgia Peripheral arterial disease Vitamin D deficiency HTN (hypertension) Sleep apnea COPD (chronic obstructive pulmonary disease) Smoker Secondary polycythemia Surgical History History of amputation of left great toe Recent surgical procedure on lower extremity History of prostate surgery Family History Father CVD (cardiovascular disease) Diabetes Hypertension Mother Diabetes Hypertension CVD (cardiovascular disease) Brother Obese Pneumonia Heart attack Sister Seizures Son Bipolar disorder Social History Household Members: Children Housing: House Do you presently have visiting nurse or other home services: No Alcohol intake: current Alcohol intake frequency: holidays/special occasions only Comment: pt refusing alarm Patient Tobacco Use Status: Current everyday Tobacco user Tobacco use type: Cigarette Cigarette Packs Per Day: 0.5 Cigarettes Per Day: 6 e-Cigarette/Vaping Use: Never Used Second Hand Smoke Exposure: Yes service: No Current occupational status: disabled Gender identity: Male Cognitive needs: Yes (cane) Hearing needs: No Vision needs: Yes (reading glasses) Questionnaire Thrive Questionnaire Date Thrive assessed: 01/21/25 I am a: Patient What is your living situation today?: I have a steady place to live Within the past 12 months, did the food you bought not last and you didn't have the money to get more?: Sometimes True Within the past 12 months, did you worry whether your food would run out before you got money to buy more?: Sometimes True Do you have trouble paying for medicines?: No Do you have trouble getting transportation to medical appointments?: Yes Do you have trouble paying your heating and electricity bill?: No Do you have trouble taking care of your child, family member or friend?: No Do you have trouble with day-to-day activities such as bathing, preparing meals, shopping, managing finances, etc.?: Yes Are you currently unemployed and looking for a job?: Yes Are you interested in more education?: No Please select the resources that you would like help with: None Currently or been in a relationship where the following occur: No concerns reported THRIVE Score: 3 MACRINA-7 AMB Questionnaire MACRINA-7 Date MACRINA - 7 assessed: 01/21/25 Source: Developed by Drs. Cachorro Burns, Mayela Walter, Deng Andres and colleagues, with an educational ally from [employer]. Review of Systems Const Denies headache(s) Eyes Denies loss of vision ENT Denies vertigo, Denies dizziness, Denies headache(s) and Denies sore throat Card Denies chest pain, Reports edema, Denies leg edema, Denies lightheadedness and Reports dyspnea on exertion (chronic) Resp Denies cough, Denies hemoptysis, Reports dyspnea on exertion (chronic) and Denies wheezing GI Denies abdominal pain, Denies melena, Denies constipation, Denies diarrhea and Denies vomiting Denies dysuria, Denies urinary frequency, Denies urinary urgency and Reports other (Urinary retention-Marcus catheter in place) Musc Reports arthralgias (Recurrent toes-gout), Reports joint swelling (Toes), Denies numbness, Reports tingling (Bilateral lower extremity) and Reports other (Left great toe amputation) Neuro Denies Abnormal speech present, Denies vertigo, Denies dizziness, Denies headache(s), Denies loss of vision, Denies numbness and Reports tingling (Bilateral lower extremity) Lion/Lymph Denies easy bleeding and Denies easy bruising Aller/Immun Denies wheezing Physical exam (Primary Care) Vital Signs: Last Vital Signs Temp 96.9 F 02/17/25 15:10 Pulse 79 02/17/25 15:10 BP 106/62 02/17/25 15:54 Pulse Ox 96 02/17/25 15:10 Oxygen Delivery Method Nasal Cannula 02/17/25 15:10 BMI result Body Mass Index 35.5 Tobacco/Smoking Status: Tobacco use Status Tobacco use date assessed 02/17/25 02/17/25 15:18 Patient Tobacco Use Status Current everyday Tobacco 02/17/25 15:18 Tobacco use type Cigarette 02/17/25 15:18 e-Cigarette/Vaping Use Never Used 02/17/25 15:18 Thrive Assessment: Date of Thrive Assessment Date Thrive assessed 01/21/25 02/17/25 15:18 Currently or been in a relationship where the following occur: No concerns reported Const General: healthy appearing, no acute distress, alert and awake Nutritional Appearance: well nourished Orientation/consciousness: oriented to person, oriented to place and oriented to time HENMT Ears: TM's normal bilaterally General nose exam: Normal nasal mucous membranes and turbinates present Face and sinus: Yes miranda face Eyes Conjunctivae: conjunctivae normal Sclerae: sclerae normal Pupils: Equal, round and reactive pupils present Neck Neck: Yes no lymphadenopathy and Yes no JVD Thyroid: Thyroid normal Carotids: no bruits Resp Effort & Inspection: normal respiratory effort and not tachypneic Auscultation: no crackles, no rales, no rhonchi, no wheezes and diminished lung sounds bilateral in the lower lung zapata Cardio Rate: regular rate Rhythm: regular rhythm Heart sounds: no murmurs and normal S1 and S2 GI Palpation (GI): Soft to palpation, nontender, no hepatomegaly and no splenomegaly Auscultation: normal bowel sounds Skin General skin exam: no rashes or lesions noted and dry skin Neuro General: oriented to person, oriented to place and oriented to time Cranial nerves: Yes Equal, round and reactive pupils present Speech: No Abnormal speech present Gait exam (Neuro): Normal gait present Motor exam (neuro): no tremor noted Extrem Right upper extremity: full ROM Left upper extremity: full ROM Right lower extremity: full ROM, edema Details: pitting and 2+ and lower leg Left lower extremity: full ROM, edema Details: pitting and 2+ and foot Details: edema Ankle/foot/toe images: 1. Left great toe toe amputation Psych Mental Status: mental status grossly normal Speech and movement: Normal speech and movement present Affect: normal affect Attitude: cooperative Thought process: Normal thought process present Coding Level of Care Code Est Pt Level 4 (63322) Diagnoses Amputation of left great toe S98.112A Benign essential hypertension I10 Stage 3a chronic kidney disease N18.31 Chronic kidney disease stage 3 subtype: stage 3a (GFR 45-59) Urine retention R33.9 Time Spent (min) 42 Assessment & Plan Assessment & Plan (1) Amputation of left great toe: Code(s): S98.112A - Complete traumatic amputation of left great toe, initial encounter Category: Medical Plan: Reports to infection for over a month. Per son, he wanted to bring the patient to the hospital sooner but he was adamantly refusing. MRI of his foot confirmed osteomyelitis. Status post L1 amputation with vascular surgery team. Soon culture did not grow any organisms. The patient was treated with broad-spectrum antibiotics with vancomycin and ceftriaxone but given source control achieved after amputation antibiotics was discontinued. Dressing intact to left foot. Patient is complaining of pain to area. We will give him a 15 day course tramadol 50 mg b.i.d. (2) Benign essential hypertension: Code(s): I10 - Essential (primary) hypertension Category: Medical Plan: Patient blood pressure has been running low. Son reports that the patient is not drinking like he used to. We will hold furosemide for now until the patient p.o. intake picks up. (3) Chronic kidney disease (CKD), stage III (moderate): Code(s): N18.30 - Chronic kidney disease, stage 3 unspecified Category: Medical Qualifiers: Chronic kidney disease stage 3 subtype: stage 3a (GFR 45-59) Qualified Code(s): N18.31 - Chronic kidney disease, stage 3a Plan: We will monitor creatinine. Renally dose medications and avoid nephrotoxicity him medications (4) Urine retention: Code(s): R33.9 - Retention of urine, unspecified Category: Medical Plan: After surgery to patient hospital course was complicated by urine retention. Failed voiding trial. Marcus was reinserted patient to follow up with [facility] outpatient. Medications: Refilled tramadol 50 mg PO BID 30 tabs 0RF 15 days M87.059 - Idiopathic aseptic necrosis of unspecified femur
[2025-02-17 15:10] VITALS: BP 140/62; PULSE 79; TEMP 36.1; O2SAT 96; BMI 35.5
[2025-02-17 15:54] VITALS: BP 106/62
== END 2025-02-17 15:48 | disposition home or self-care (01) ==
LOC: HO.HMCH 15:04
PROVIDERS: PCP Internal Medicine
DX: S98.112A Complete traumatic amputation of left great toe, initial encounter (principal); I10 Essential (primary) hypertension; N18.31 Chronic kidney disease, stage 3a; R33.9 Retention of urine, unspecified

== ENCOUNTER → 2025-02-17 15:03 | Outpatient (BNVA) | payer MEDICARE, SELFPAY | PROVIDERS: PCP Internal Medicine | DX: S98.112D Complete traumatic amputation of left great toe, subsequent encounter (principal); I12.9 Hypertensive chronic kidney disease with stage 1 through stage 4 chronic kidney disease, or unspecified chronic kidney disease; N18.31 Chronic kidney disease, stage 3a; R33.9 Retention of urine, unspecified; F17.210 Nicotine dependence, cigarettes, uncomplicated; Z71.6 Tobacco abuse counseling | CPT/HCPCS: 99212 ==

== ENCOUNTER → 2025-02-20 23:59 | Outpatient (BNV) | payer MEDICARE, SELFPAY | PROVIDERS: PCP Internal Medicine; Visit Provider Internal Medicine | DX: E11.51 Type 2 diabetes mellitus with diabetic peripheral angiopathy without gangrene (principal); J43.9 Emphysema, unspecified | CPT/HCPCS: G0180 ==

== ENCOUNTER 2025-03-13 14:05 | Outpatient (REF) | payer MEDICARE, SELFPAY ==
[2025-03-13 16:13] LABS: MANUAL DIFF FLAG NO
[2025-03-13 16:27] LABS: Hematocrit 26.9 % (42.0-52.0); Hemoglobin 8.8 g/dl (14.0-18.0); Imm Gran Abs Auto 0.04 X10*3/uL (0.00-0.03); Imm Gran Pct Auto 0.5 % (0.0-0.4); Lymphocytes Absolute Auto 2.0 X10*3/uL (1.2-4.9); Mean Corpuscular HGB Conc 32.7 g/dl (31.0-36.0); Mean Corpuscular Hemoglobin 34.2 pg (27.0-33.0); Mean Corpuscular Volume 104.7 fL (80.0-98.0); NRBC Abs Auto 0.020 X10*3/uL (0.0-0.012); NRBC Pct Auto 0.2 /100WBC (0.0-0.2); Platelet Count 212 X10*3/uL (160-400); Red Blood Count 2.57 X10*6/uL (4.60-5.80); White Blood Count 8.1 X10*3/uL (4.8-10.8)
[2025-03-13 16:42] LABS: Alanine Aminotransferase 24 U/L (0-40); Albumin Level 3.8 g/dL (3.5-5.0); Alkaline Phosphatase 80 U/L (39-117); Anion Gap 12 (12-20); Aspartate Amino Transferase 36 U/L (5-37); Blood Urea Nitrogen 17 mg/dL (9-16); Calcium 9.3 mg/dL (8.4-10.2); Carbon Dioxide 31 mmol/L (22-29); Chloride 96 mmol/L (96-108); Estimated Glomerular Filt Rate > 60; Potassium 4.5 mmol/L (3.3-5.1); Sodium 134 mmol/L (135-145); Total Protein 6.4 g/dL (6.5-8.0); Uric Acid 4.1 mg/dL (3.4-7.0)
== END 2025-03-13 14:06 | disposition home or self-care (01) ==
LOC: HO.HMGCLDS 14:05
PROVIDERS: PCP Internal Medicine; Visit Provider Internal Medicine
DX: M10.072 Idiopathic gout, left ankle and foot (principal); M79.7 Fibromyalgia; D64.9 Anemia, unspecified
CPT/HCPCS: 36415; 80053; 84550; 85025; 85652; 86140

== ENCOUNTER 2025-04-16 13:25 | Outpatient (AMB) | payer MEDICARE, SELFPAY ==
--- NOTE | 2025-04-16 13:32 | A.OFFPC_ITS ---
Vital Signs 04/16/25 13:33 Height 5 ft 2 in BMI Reason not done Patient refused/unable BP 104/62 Blood Pressure Location Lt brachial Position Sitting Pulse 81 Pulse Source Pulse Oximeter Pulse Oximetry (%) 94 Oxygen Delivery Method Simple Mask Oxygen Flow Rate 2 Intake Visit Reasons: annual exam Intake Note: Patient is here for hospital discharge follow up. Patient was discharged from [facility] on 02/11/25. Grill Cook Required: No Mine Shifter: Not Required per policy Accompanied by: Self / Same As Patient Allergies No Known Allergies Allergy (Verified 04/16/25 14:04) Medication List - Last Reconciled 04/16/25 by Oswaldo Alvarez MD albuterol sulfate 90 mcg/actuation 2 puffs inhalation Q4-6H PRN allopurinol 300 mg PO DAILY 30 days aspirin 81 mg PO DAILY atorvastatin 40 mg PO DAILY cholecalciferol (vitamin D3) 50 mcg PO DAILY colchicine 1.2 mg (2 x 0.6 mg) PO ONCE folic acid 1 mg PO DAILY gabapentin 300 mg PO TID 90 days ipratropium-albuterol 0.5 mg-3 mg(2.5 mg base)/3 mL 3 mL inhalation Q6H PRN lidocaine 4% (Lidocaine Pain Relief) 1 patch See Protocol transdermal DAILY [Lift Chair As directed] metoprolol succinate ER 50 mg PO DAILY multivitamin 1 tab PO DAILY [NEBULIZER As directed] [PORTABLE OXYGEN CONCENTRATOR Use as directed] tramadol 50 mg PO BID 15 days varenicline tartrate (Chantix Starting Month Box) PO PER PKG DIR Tobacco use date assessed: 04/16/25 Fall risk assessment: No Falls in past year Last assessed Fall Risk: 04/16/25 Dental Screening Dental Screen Date: 04/16/25 [facility] Medical History Gout Pure hypercholesterolemia Benign essential hypertension Obstructive sleep apnea Chronic respiratory failure with hypoxia Obesity (BMI 30-39.9) Chronic kidney disease (CKD), stage III (moderate) Impaired fasting glucose Coronary artery disease Severe chronic obstructive pulmonary disease History of back problems Post herpetic neuralgia Peripheral arterial disease Vitamin D deficiency HTN (hypertension) Sleep apnea COPD (chronic obstructive pulmonary disease) Smoker Secondary polycythemia Surgical History History of amputation of left great toe Recent surgical procedure on lower extremity History of prostate surgery Family History Father CVD (cardiovascular disease) Diabetes Hypertension Mother Diabetes Hypertension CVD (cardiovascular disease) Brother Obese Pneumonia Heart attack Sister Seizures Son Bipolar disorder Social History Household Members: Children Housing: House Do you presently have visiting nurse or other home services: No Alcohol intake: current Alcohol intake frequency: holidays/special occasions only Comment: pt refusing alarm Patient Tobacco Use Status: Current everyday Tobacco user Tobacco use type: Cigarette Cigarette Packs Per Day: 0.5 Cigarettes Per Day: 6 e-Cigarette/Vaping Use: Never Used Second Hand Smoke Exposure: Yes service: No Current occupational status: disabled Gender identity: Male Cognitive needs: Yes (cane) Hearing needs: No Vision needs: Yes (reading glasses) Questionnaire PHQ-9 Over the last 2 weeks, how often have you been bothered by any of the following problems? 1. Little interest or pleasure in doing things: more than half the days 2. Feeling down, depressed, or hopeless: not at all 3. Trouble falling or staying asleep, or sleeping too much: more than half the days 4. Feeling tired or having little energy: more than half the days 5. Poor appetite or overeating: not at all 6. Feeling bad about yourself - or that you are a failure or have let yourself or your family down: not at all 7. Trouble concentrating on things, such as reading the newspaper or watching television: not at all 8. Moving or speaking so slowly that other people could have noticed. Or the opposite - being so fidgety or restless that you have been moving around a lot more than usual: more than half the days 9. Thoughts that you would be better off or of hurting yourself in some way: not at all Total score: 8 Depression Screening Interpretation: Positive Depression Screening Follow-up: Follow-up Visit Requested Depression Screening Done: Yes [id number] - PHQ-9 Billing: Yes Source: Developed by Drs. Cachorro Burns, Mayela Walter, Deng Andres and colleagues, with an educational ally from [employer] Thrive Questionnaire Date Thrive assessed: 04/16/25 I am a: Patient What is your living situation today?: I have a steady place to live Within the past 12 months, did the food you bought not last and you didn't have the money to get more?: Sometimes True Within the past 12 months, did you worry whether your food would run out before you got money to buy more?: Sometimes True Do you have trouble paying for medicines?: No Do you have trouble getting transportation to medical appointments?: Yes Do you have trouble paying your heating and electricity bill?: No Do you have trouble taking care of your child, family member or friend?: No Do you have trouble with day-to-day activities such as bathing, preparing meals, shopping, managing finances, etc.?: Yes Are you currently unemployed and looking for a job?: Yes Are you interested in more education?: No Please select the resources that you would like help with: None Currently or been in a relationship where the following occur: No concerns reported THRIVE Score: 3 AUDIT C Alcohol Use Questionnaire (AUDIT-C) 1. How often do you have a drink containing alcohol?: Never 3. How often do you have six or more drinks on one occasion?: Never Total Score: 0 Score Reviewed/Action Taken: Yes MACRINA-7 AMB Questionnaire MACRINA-7 Date MACRINA - 7 assessed: 04/16/25 Feeling nervous, anxious, or on edge: 0 = Not at all Not being able to stop or control worryin = Not at all Worrying too much about different things: 0 = Not at all Trouble relaxin = Not at all Being so restless that it is hard to sit still: 0 = Not at all Becoming easily annoyed or irritable: 0 = Not at all Feeling afraid as if something awful might happen: 0 = Not at all Total MACRINA-7 score (0-4 normal; 5-9 mild; 10-14 moderate; 15-21 severe): 0 Source: Developed by Drs. Cachorro Burns, Mayela Walter, Deng Andres and colleagues, with an educational ally from [employer] Physical exam (Primary Care) Vital Signs: Last Vital Signs Pulse 81 04/16/25 13:33 BP 104/62 04/16/25 13:33 Pulse Ox 94 08/13/25 13:33 Oxygen Delivery Method Simple Mask 04/16/25 13:33 Oxygen Flow Rate 2 04/16/25 13:33 Tobacco/Smoking Status: Tobacco use Status Tobacco use date assessed 04/16/25 04/16/25 13:53 Patient Tobacco Use Status Current everyday Tobacco 04/16/25 13:33 Tobacco use type Cigarette 04/16/25 13:33 e-Cigarette/Vaping Use Never Used 04/16/25 13:33 PHQ-9: PHQ-9 Score PHQ-9: Total score 8 04/16/25 14:09 Depression Screening Interpretation: Positive Depression Screening Follow-up: Follow-up Visit Requested Thrive Assessment: Date of Thrive Assessment Date Thrive assessed 04/16/25 04/16/25 13:53 Currently or been in a relationship where the following occur: No concerns reported Results AMB Hemoglobin A1c AMB Hemoglobin A1c 5.0 % Last Edit by PATTI Mims on 04/16/25 14 :38 Coding Additional Codes PHQ-9 - 07043 - PHQ-9 Billing: Yes ([id number]) Assessment & Plan Assessment & Plan Orders: Orders AMB Hemoglobin A1c Today Z13.9 - Encounter for screening, unspecified Medications: New furosemide (Lasix) Take in AM ONLY NEEDED for increased swelling 20 mg PO QAM 90 days PRN 90 tabs 0RF edema/swelling Changed From atorvastatin 40 mg PO DAILY 90 tabs 1RF To atorvastatin 40 mg PO DAILY 90 days 90 tabs 1RF From metoprolol succinate ER 50 mg PO DAILY 90 tabs 2RF To metoprolol succinate ER 25 mg PO DAILY 90 days 90 tabs 1RF Refilled tramadol 50 mg PO BID 15 days 30 tabs 0RF M87.059 - Idiopathic aseptic necrosis of unspecified femur gabapentin 300 mg PO TID 90 days 270 caps 0RF
[2025-04-16 13:33] VITALS: BP 104/62; PULSE 81; O2SAT 94
== END 2025-04-16 14:25 | disposition home or self-care (01) ==
LOC: HO.HMCH 13:26
PROVIDERS: PCP Internal Medicine; Visit Provider Internal Medicine
DX: Z13.9 Encounter for screening, unspecified (principal)

== ENCOUNTER → 2025-04-16 13:25 | Outpatient (BNVA) | payer MEDICARE, SELFPAY | PROVIDERS: PCP Internal Medicine; Visit Provider Internal Medicine | DX: Z00.00 Encounter for general adult medical examination without abnormal findings (principal); D64.9 Anemia, unspecified; M86.9 Osteomyelitis, unspecified; J44.9 Chronic obstructive pulmonary disease, unspecified; M10.072 Idiopathic gout, left ankle and foot; N18.31 Chronic kidney disease, stage 3a; I95.9 Hypotension, unspecified; I25.10 Atherosclerotic heart disease of native coronary artery without angina pectoris; E78.00 Pure hypercholesterolemia, unspecified; I73.9 Peripheral vascular disease, unspecified; R73.01 Impaired fasting glucose; G47.33 Obstructive sleep apnea (adult) (pediatric); E55.9 Vitamin D deficiency, unspecified; B02.29 Other postherpetic nervous system involvement; M72.0 Palmar fascial fibromatosis [Dupuytren]; M87.051 Idiopathic aseptic necrosis of right femur; E66.9 Obesity, unspecified; F17.200 Nicotine dependence, unspecified, uncomplicated; Z71.6 Tobacco abuse counseling; Z71.3 Dietary counseling and surveillance | CPT/HCPCS: 83036; 96127; 99397 ==